=== PATIENT | male | born 1955 | race Two or more races ===

== ENCOUNTER 2017-08-07 15:58 | Emergency (ER) | payer MEDICAID ==
[2017-08-07 16:49] LABS: ADD MAN DIFF? NO
[2017-08-07 16:50] LABS: BASO # 0.1 x10^3/uL (0.0-0.2); BASO % 1 % (0-3); EOS # 0.6 x10^3/uL (0.0-0.7); EOS % 8 % (0-3); HEMATOCRIT 41.2 % (39.0-53.0); HEMOGLOBIN 14.3 g/dL (13.0-17.5); LYMPH # 2.6 x10^3/uL (1.0-4.8); LYMPH % 34 % (24-48); MEAN CORPUSCULAR HEMOGLOBIN 31 pg (25-35); MEAN CORPUSCULAR HGB CONC 35 g/dL (31-37); MEAN CORPUSCULAR VOLUME 90 fL (79-100); MONO # 0.8 x10^3/uL (0.0-1.1); MONO % 10 % (0-9); NEUT # 3.6 x10^3uL (1.8-7.7); NEUT % 47 % (31-73); PLATELET COUNT 264 x10^3/uL (140-400); RED BLOOD COUNT 4.56 x10^6/uL (4.30-5.70); RED CELL DISTRIBUTION WIDTH 13.4 % (11.5-14.5); WHITE BLOOD COUNT 7.8 x10^3/uL (4.0-11.0)
[2017-08-07 16:59] LABS: PROTHROMBIN TIME PATIENT 12.3 SEC (11.7-14.0)
[2017-08-07 17:02] LABS: ANION GAP 8 (6-14); BLOOD UREA NITROGEN 20 mg/dL (8-26); BUN/CREATININE RATIO 17 (6-20); CALCIUM 9.6 mg/dL (8.5-10.1); CARBON DIOXIDE 27 mmol/L (21-32); CHLORIDE 103 mmol/L (98-107); CREATININE 1.2 mg/dL (0.7-1.3); GLUCOSE 127 mg/dL (70-99); POTASSIUM 3.7 mmol/L (3.5-5.1); SODIUM 138 mmol/L (136-145)
[2017-08-07] MEDS: diphenhydrAMINE 50 MG/ML VIAL IVP (17:05)
[2017-08-07] MEDS: PROCHLORPERAZINE 10 MG/2 ML VIAL. IV (17:06)
[2017-08-07 17:07] LABS: ALBUMIN 3.6 g/dL (3.4-5.0); ALK PHOS 76 U/L (46-116); ALT (SGPT) 33 U/L (16-63); AST (SGOT) 24 U/L (15-37); MAGNESIUM 1.9 mg/dL (1.8-2.4); TOTAL BILIRUBIN 0.3 mg/dL (0.2-1.0); TOTAL PROTEIN 7.3 g/dL (6.4-8.2)
[2017-08-07 17:10] LABS: TROPONINI < 0.017 ng/mL (0.000-0.055)
[2017-08-07] MEDS: MECLIZINE HCL 12.5 MG TABLET. PO (17:16)
== END 2017-08-07 20:40 | disposition home or self-care (01) ==
LOC: ER 15:58
DX: R51 Headache (principal); R07.89 Other chest pain; R68.84 Jaw pain; K21.9 Gastro-esophageal reflux disease without esophagitis; I10 Essential (primary) hypertension; N40.0 Benign prostatic hyperplasia without lower urinary tract symptoms; F12.10 Cannabis abuse, uncomplicated
CPT/HCPCS: 36415; 70450; 71045; 80053; 83735; 84484; 85025; 85610; 93005; 93971; 96374; 96375; 99285-25; J0780; J1200; J8597

== ENCOUNTER 2017-10-20 10:28 | Emergency (ER) | payer MEDICAID ==
[2017-10-20 11:39] LABS: ADD MAN DIFF? NO
[2017-10-20 11:48] LABS: BASO # 0.1 x10^3/uL (0.0-0.2); BASO % 1 % (0-3); EOS # 0.2 x10^3/uL (0.0-0.7); EOS % 4 % (0-3); HEMATOCRIT 39.6 % (39.0-53.0); HEMOGLOBIN 13.8 g/dL (13.0-17.5); LYMPH # 1.2 x10^3/uL (1.0-4.8); LYMPH % 18 % (24-48); MEAN CORPUSCULAR HEMOGLOBIN 31 pg (25-35); MEAN CORPUSCULAR HGB CONC 35 g/dL (31-37); MEAN CORPUSCULAR VOLUME 90 fL (79-100); MONO # 0.7 x10^3/uL (0.0-1.1); MONO % 10 % (0-9); NEUT # 4.6 x10^3uL (1.8-7.7); NEUT % 68 % (31-73); PLATELET COUNT 235 x10^3/uL (140-400); RED BLOOD COUNT 4.39 x10^6/uL (4.30-5.70); RED CELL DISTRIBUTION WIDTH 13.5 % (11.5-14.5); WHITE BLOOD COUNT 6.8 x10^3/uL (4.0-11.0)
[2017-10-20 11:53] LABS: BILIRUBIN,URINE NEGATIVE (NEG); CLARITY,URINE CLEAR; COLOR,URINE YELLOW; GLUCOSE,URINE NEGATIVE (NEG); NITRITE,URINE NEGATIVE (NEG); PH,URINE 5.5; PROTEIN,URINE NEGATIVE (NEG-TRACE); UROBILINOGEN,URINE 0.2 mg/dL (0.2 mg/dL)
[2017-10-20 11:56] LABS: ANION GAP 8 (6-14); BLOOD UREA NITROGEN 22 mg/dL (8-26); BUN/CREATININE RATIO 17 (6-20); CARBON DIOXIDE 26 mmol/L (21-32); CHLORIDE 103 mmol/L (98-107); CREATININE 1.3 mg/dL (0.7-1.3); GFR 56.5; GLUCOSE 155 mg/dL (70-99); POTASSIUM 3.7 mmol/L (3.5-5.1); SODIUM 137 mmol/L (136-145)
[2017-10-20 12:03] LABS: ALBUMIN 3.6 g/dL (3.4-5.0); ALBUMIN/GLOBULIN RATIO 1.1 (1.0-1.7); ALK PHOS 87 U/L (46-116); ALT (SGPT) 28 U/L (16-63); AST (SGOT) 22 U/L (15-37); TOTAL BILIRUBIN 0.5 mg/dL (0.2-1.0); TOTAL PROTEIN 6.8 g/dL (6.4-8.2)
[2017-10-20 12:04] LABS: TROPONINI < 0.017 ng/mL (0.000-0.055)
[2017-10-20 12:10] LABS: CKMB INDEX 0.9 % (0-4); CKMB MASS 2.1 ng/mL (0.0-3.6); CREATINE KINASE 227 U/L (39-308)
[2017-10-20 12:15] LABS: RBC,URINE 0 /HPF (0-2); WBC,URINE 0 /HPF (0-4)
[2017-10-20 12:16] LABS: BACTERIA,URINE 0 /HPF (0-FEW)
[2017-10-20] MEDS ORDERED: KETOROLAC 30 MG/ML INJ. IV (12:45)
== END 2017-10-20 13:27 | disposition home or self-care (01) ==
LOC: ER 10:28
DX: S29.9XXA Unspecified injury of thorax, initial encounter (principal); K21.9 Gastro-esophageal reflux disease without esophagitis; I10 Essential (primary) hypertension; F12.10 Cannabis abuse, uncomplicated; Z98.890 Other specified postprocedural states; V00.131A Fall from skateboard, initial encounter; Y93.51 Activity, roller skating (inline) and skateboarding; Y99.8 Other external cause status; Y92.89 Other specified places as the place of occurrence of the external cause
CPT/HCPCS: 36415; 71250; 80053; 81001; 82553; 84484; 85025; 93005; 99285

== ENCOUNTER 2019-12-08 15:48 | Emergency (ER) | payer MEDICAID, MEDICARE ==
[~2019-12-08] VITALS: Ht 167.6 cm; Wt 99.0 kg
[~2019-12-08 15:48] MED LIST: HYDR-3164 PO
--- NOTE | 2019-12-08 17:20 | RAD ---
CHEST AP ONLY History: Nausea, vomiting, diarrhea, PUI Comparison: August 07, 2017 Findings: Single view of the chest is submitted. No significant infiltrate is identified by radiograph dependent pleural fluid. Cardiac silhouette is within normal limits given technique. Impression: 1. No convincing acute radiographic abnormality is identified. Electronically signed by: Jose Bob MD (12/08/2019 5:17 PM) [facility]
[2019-12-08 17:31] LABS: BASO % 1 % (0-3); EOS % 1 % (0-3); HEMATOCRIT 41.4 % (39.0-53.0); HEMOGLOBIN 14.7 g/dL (13.0-17.5); LYMPH % 20 % (24-48); MEAN CORPUSCULAR HEMOGLOBIN 32 pg (25-35); MEAN CORPUSCULAR HGB CONC 36 g/dL (31-37); MEAN CORPUSCULAR VOLUME 89 fL (79-100); MONO # 0.8 x10^3/uL (0.0-1.1); MONO % 16 % (0-9); NEUT % 62 % (31-73); PLATELET COUNT 193 x10^3/uL (140-400); RED BLOOD COUNT 4.63 x10^6/uL (4.30-5.70); RED CELL DISTRIBUTION WIDTH 13.9 % (11.5-14.5); WHITE BLOOD COUNT 4.8 x10^3/uL (4.0-11.0)
--- NOTE | 2019-12-08 17:48 | PHYS DOC ---
Past Medical History Past Medical History: GERD, Hypertension, Other Additional Past Medical Histor: BPH Past Surgical History: Other Additional Past Surgical Histo: Knee Surgery, Vasectomy,left shoulder Smoking Status: Never Smoker Alcohol Use: Occasionally Drug Use: Marijuana General Adult EDM: Chief Complaint: FEVER HPI: HPI: Patient is a 63 year old male who presents to the emergency department with complaints of a fever, dry cough, and generalized body aches for the last 2 to 3 days. Patient reports that he traveled here recently to visit his daughter from [place]. He reports that today his daughter was notified of a positive result on her COVID-19 swab that was done on 05 of December. He denies any shortness of breath, chest pain, wheezing, nausea, vomiting, diarrhea, abdominal pain, or rash. He currently rates his pain a 6 out of 10 on the pain scale and describes the pain as a generalized body aches. Patient reports that he has been taking Tylenol and ibuprofen at home for the body aches and that has helped to reduce his symptoms. He denies any radiation of his pain. Review of Systems: Review of Systems: Constitutional: See HPI Eyes: Denies change in visual acuity. [] HENT: Denies nasal congestion or sore throat. [] Respiratory: Denies shortness of breath; see HPI [] Cardiovascular: Denies chest pain or edema. [] GI: Denies abdominal pain, nausea, vomiting, or diarrhea. [] Musculoskeletal: See HPI Integument: Denies rash. [] Neurologic: Denies headache, focal weakness or sensory changes. [] Lymphatic: Denies swollen glands. [] Psychiatric: Denies depression or anxiety. [] Heart Score: Risk Factors: Risk Factors: DM, Current or recent (<one month) smoker, HTN, HLP, family history of CAD, obesity. Risk Scores: Score 0 - 3: 2.5% MACE over next 6 weeks - Discharge Home Score 4 - 6: 20.3% MACE over next 6 weeks - Admit for Clinical Observation Score 7 - 10: 72.7% MACE over next 6 weeks - Early Invasive Strategies Allergies: Allergies: Allergies Coded Allergies Type Severity Reaction Last Updated Verified No Known Drug Allergies 08/07/17 No Physical Exam: PE: Constitutional: Well developed, well nourished, no acute distress, non-toxic appearance, obese. [] HENT: Normocephalic, atraumatic, bilateral external ears normal, nose normal. [] Eyes: PERRLA, EOMI, conjunctiva normal, no discharge. [] Neck: Normal range of motion, no stridor. [] Cardiovascular:Heart rate regular rhythm Lungs & Thorax: Respirations even and unlabored, no retractions, no respiratory distress Skin: Warm, dry, no erythema, no rash. [] Extremities: No cyanosis, ROM intact, no edema. [] Neurologic: Alert and oriented X 3, no focal deficits noted. [] Psychologic: Affect normal, judgement normal, mood normal. [] Current Patient Data: Labs: Laboratory Tests Test 12/08/19 17:17 White Blood Count 4.8 x10^3/uL (4.0-11.0) Red Blood Count 4.63 x10^6/uL (4.30-5.70) Hemoglobin 14.7 g/dL (13.0-17.5) Hematocrit 41.4 % (39.0-53.0) Mean Corpuscular Volume 89 fL (79-100) Mean Corpuscular Hemoglobin 32 pg (25-35) Mean Corpuscular Hemoglobin Concent 36 g/dL (31-37) Red Cell Distribution Width 13.9 % (11.5-14.5) Platelet Count 193 x10^3/uL (140-400) Neutrophils (%) (Auto) 62 % (31-73) Lymphocytes (%) (Auto) 20 % (24-48) L Monocytes (%) (Auto) 16 % (0-9) H Eosinophils (%) (Auto) 1 % (0-3) Basophils (%) (Auto) 1 % (0-3) Neutrophils # (Auto) 3.0 x10^3/uL (1.8-7.7) Lymphocytes # (Auto) 1.0 x10^3/uL (1.0-4.8) Monocytes # (Auto) 0.8 x10^3/uL (0.0-1.1) Eosinophils # (Auto) 0.0 x10^3/uL (0.0-0.7) Basophils # (Auto) 0.0 x10^3/uL (0.0-0.2) D-Dimer ([place]) 0.36 ug/mlFEU (0.00-0.50) Laboratory Tests 12/08/19 17:17 Vital Signs: Vital Signs Date Time Temp Pulse Resp B/P (MAP) Pulse Ox O2 Delivery O2 Flow Rate FiO2 12/08/19 17:21 82 125/90 (102) 98 Room Air 12/08/19 16:45 99.3 17 99.3 EKG: EKG: [] Radiology/Procedures: Radiology/Procedures: PROCEDURE: CHEST AP ONLY CHEST AP ONLY History: Nausea, vomiting, diarrhea, PUI Comparison: August 07, 2017 Findings: Single view of the chest is submitted. No significant infiltrate is identified by radiograph dependent pleural fluid. Cardiac silhouette is within normal limits given technique. Impression: 1. No convincing acute radiographic abnormality is identified.[] Course & Med Decision Making: Course & Med Decision Making Pertinent Labs and Imaging studies reviewed. (See chart for details) 63-year-old male presents to the emergency department with complaints of fever and concerns of COVID-19 Work-up included labs and chest x-ray CBC is unremarkable; d-dimer is 0.36; patient's creatinine is 1.7, AST 63, ALT 74, C-reactive protein 14.4, ferritin 712; UA is unremarkable. COVID test is pending. Chest x-ray is unremarkable. I encouraged the patient to quarantine himself, increase his fluid intake, continue taking Tylenol or ibuprofen as needed for pain, and provided him with COVID-19 discharge instructions. Prescription written for a Zithromax Dosepak I encouraged the patient to return to the emergency department if his breathing becomes labored or his symptoms worsen. Patient verbalized an understanding of home care, medications, follow-up, and return to ED instructions and was in agreement with the plan of care. COVID-19 CRITERIA: The patient was evaluated during the global COVID-19 pandemic, and that diagnosis was suspected/considered upon their initial presentation. Their evaluation, treatment and testing was consistent with current guidelines for patients who present with complaints or symptoms that may be related to COVID-19. [] Dragon Disclaimer: Dragon Disclaimer: This electronic medical record was generated, in whole or in part, using a voice recognition dictation system. Departure Departure Impression: Primary Impression: Person under investigation for COVID-19 Disposition: HOME, SELF-CARE Condition: STABLE Referrals: NO PCP (PCP) Additional Instructions: You have been tested for or diagnosed with COVID-19. It is an infection caused by a new type of coronavirus. COVID-19 will cause cold-like or mild flu symptoms in most. It can cause more severe symptoms like problems breathing in some. There is no treatment for COVID-19. The body will clear the infection over time. Self-care will help to ease discomfort. Steps to Take: Self-Care Rest as needed. Healthy habits may help you feel better. Steps include: Choose healthy foods including fruits and vegetables. Drink water throughout the day. Get plenty of sleep each night. If you smoke, try to quit. It may ease breathing. Avoid alcohol. Keep Others Healthy The virus can spread to others. Droplets are released every time you sneeze or cough. The droplets can get into the mouth, nose, or eyes of people near you and lead to infection. To lower the chances of spreading COVID-19 to others: Stay at home until your doctor has said it is safe to leave. If you tested positive this will mean staying isolated until both of the following are true: At least 7 days have passed since the start of illness. You are free of fever for at least 72 hours without the use of medicine. During this time: - Avoid public areas, events, or transportation. Do not return to work or school until your doctor has said it is safe to do so. - Call ahead if you need to go to a medical center. Let them know you may have COVID-19. It will help them guide you where to go. They may also ask you to wear a facemask when you come to the office. - If you call for emergency medical services, let them know you may have COVID- 19. While at home: - Try to avoid close contact with others. Stay about 6 feet away. - If possible, spend most of your time in a separate room from others. - Use a face mask if you will be in close contact with others such as sharing a room or vehicle. - Have someone wipe down common surfaces in the home. Use household salvage diver every day on areas like doorknobs, counters, or sinks. - Cough or sneeze into a tissue. Throw the tissue away right after use. If a tissue is not available, cough or sneeze into your elbow. - Wash your hands often. Wash them after sneezing or coughing. Use soap and water and wash for at least 20 seconds. Alcohol based hand cleaner signs can be used if soap and water is not available. - Do not prepare food for others. Avoid sharing personal items like forks, spoons, or toothbrushes. - Avoid close contact with pets while you are sick. There is no evidence of the virus passing to pets. This is a safety step until more is known about this virus. Isolation can be frustrating. Social interaction can help. Keep in touch with friends and family through phone and tech options. You can still interact with others in your home, just keep a safe distance of about 6 feet. Follow-up: Your doctors office will check in with you to see if there are any changes in your health. You may be asked to keep track of symptoms to share with them. They will also let you know when you are clear to be in public again. Problems to Look Out For: Contact your doctor if your recovery is not going as you expect. Get emergency care if you have problems such as: - Trouble breathing - Nonstop chest pain or pressure - Changes in awareness, confusion, or problems waking - Lips or face have bluish color - Worsening of symptoms If you think you have an emergency, call for emergency medical services right away. As taken from [facility] Azithromycin (ZITHROMAX PACKET) 1 Gm Packet 1 TAB PO UD for 5 Days, #1 PACKET 0 Refills Prov: HUMBERTO SEYMOUR APRN 12/08/19 Justicifation of Admission Dx: Justifications for Admission: Justification of Admission Dx: N/A COVID-19 Assessment: COVID-19 Patient Risks: Age 65 or older: No Sign of co-morbidity: No Exp to person + for COVID: Yes Exp to PUI: Yes Travel from affected area: No Lower respiratory symptoms: No Fever: Yes Other: No PPE Use: Full PPE with N95 mask or PAPR: Yes (N 95 and gown and gloves) HUMBERTO SEYMOUR APRN Dec 08, 2019 17:48
[2019-12-08 17:54] LABS: CALCIUM 9.3 mg/dL (8.5-10.1); CREATININE 1.7 mg/dL (0.7-1.3); GFR 41.2; POTASSIUM 3.6 mmol/L (3.5-5.1)
[2019-12-08 18:12] LABS: ALBUMIN 3.7 g/dL (3.4-5.0); ALBUMIN/GLOBULIN RATIO 0.9 (1.0-1.7); C-REACTIVE PROTEIN 14.4 mg/L (0-3.3); TOTAL BILIRUBIN 0.3 mg/dL (0.2-1.0); TOTAL PROTEIN 7.6 g/dL (6.4-8.2)
[2019-12-08 19:17] LABS: BILIRUBIN,URINE NEGATIVE (NEG); CLARITY,URINE CLEAR; COLOR,URINE YELLOW; NITRITE,URINE NEGATIVE (NEG); PH,URINE 5.5 (<5.0-8.0); PROTEIN,URINE NEGATIVE (NEG-TRACE); UROBILINOGEN,URINE 0.2 mg/dL (0.2 mg/dL)
[2019-12-08 19:23] LABS: HYALINE CASTS, URINE OCCASIONAL /HPF
[2019-12-08 19:24] LABS: BACTERIA,URINE 0 /HPF (0-FEW); RBC,URINE OCC /HPF (0-2); WBC,URINE OCC /HPF (0-4)
[2019-12-08] MEDS ORDERED: AZIT1PAC PO (20:05)
[2019-12-08 21:07] VITALS: BP 150/81
--- NOTE | 2019-12-10 19:20 | NUR ---
PT CALLED REQUESTING COVID 19 RESULTS. RESULTS WERE POSITIVE. PT INSTRUCTED TO HOME QUARANTINE. PT STATES THAT HIS WHOLE FAMILY HAS TESTED POSITIVE AND THEY ARE IN TOWN FROM [place] VISITING FAMILY. PT VERBALIZED UNDERSTANDING THAT HE SHOULD NOT TRAVEL UNTIL AFTER CLEARED BY THE HEALTH DEPT.
== END 2019-12-08 21:15 | disposition home or self-care (01) ==
LOC: ER 15:48
DX: U07.1 COVID-19 (principal); R50.9 Fever, unspecified; R05 Cough; M79.10 Myalgia, unspecified site; K21.9 Gastro-esophageal reflux disease without esophagitis; I10 Essential (primary) hypertension
CPT/HCPCS: 36415; 71045; 80053; 81001; 82550; 82728; 83690; 83735; 85025; 85379; 86140; 99285; C9803; U0003

== ENCOUNTER 2019-12-13 12:46 | Inpatient (IN) | payer MEDICARE ==
[~2019-12-13] VITALS: Ht 167.6 cm; Wt 98.1 kg
[~2019-12-13 12:46] MED LIST changes: +AZIT1PAC PO
--- NOTE | 2019-12-13 14:22 | RAD ---
CHEST AP ONLY History: Reason: soa, cough, positive for COVID-19 / Spl. Instructions: / History: Comparison: December 08, 2019 Findings: Ill-defined patchy bilateral opacities. No pleural effusion. No pneumothorax. Normal heart size. Chronic left midclavicular fracture. Impression: 1. Ill-defined patchy bilateral opacities, can be seen with viral pneumonia. Electronically signed by: Compa Peres DO (12/13/2019 2:18 PM) [id number]
[2019-12-13] MEDS ORDERED: AZITHRMYCN 500MG IVPB FOR OMNI 250 ML IV ONE (14:45)
[2019-12-13] MEDS ORDERED: IBUPROFEN 400 MG TABLET. PO ONE (15:00)
[2019-12-13] MEDS ORDERED: methylPREDNISolone SOD SUCC PF 125 MG/2 ML VIAL. IV ONE (15:00)
[2019-12-13 15:50] LABS: BASO % 1 % (0-3); EOS % 0 % (0-3); HEMATOCRIT 41.1 % (39.0-53.0); HEMOGLOBIN 14.8 g/dL (13.0-17.5); LYMPH # 0.8 x10^3/uL (1.0-4.8); LYMPH % 18 % (24-48); MEAN CORPUSCULAR HEMOGLOBIN 32 pg (25-35); MEAN CORPUSCULAR HGB CONC 36 g/dL (31-37); MEAN CORPUSCULAR VOLUME 88 fL (79-100); MONO # 0.4 x10^3/uL (0.0-1.1); MONO % 10 % (0-9); NEUT # 3.2 x10^3/uL (1.8-7.7); NEUT % 71 % (31-73); PLATELET COUNT 189 x10^3/uL (140-400); RED BLOOD COUNT 4.68 x10^6/uL (4.30-5.70); WHITE BLOOD COUNT 4.4 x10^3/uL (4.0-11.0)
[2019-12-13 15:58] LABS: PROTHROMBIN TIME PATIENT 12.7 SEC (11.7-14.0)
[2019-12-13] MEDS ORDERED: IV NORMAL SALINE 1000ML BAG 1,000 ML IV ONE (16:00)
[2019-12-13 16:05] LABS: CALCIUM 8.2 mg/dL (8.5-10.1); CREATININE 2.7 mg/dL (0.7-1.3); GFR 24.1; POTASSIUM 3.4 mmol/L (3.5-5.1)
[2019-12-13 16:18] LABS: ALBUMIN 3.2 g/dL (3.4-5.0); ALBUMIN/GLOBULIN RATIO 0.8 (1.0-1.7); TOTAL BILIRUBIN 0.3 mg/dL (0.2-1.0); TOTAL PROTEIN 7.4 g/dL (6.4-8.2)
[2019-12-13] MEDS ORDERED: cefTRIAXone IV Push 1 GM VIAL. IVP ONE (17:00)
--- NOTE | 2019-12-13 17:17 | PHYS DOC ---
Past Medical History Past Medical History: Hypertension Additional Past Medical Histor: BPH Past Surgical History: No Surgical History Additional Past Surgical Histo: Knee Surgery, Vasectomy,left shoulder Smoking Status: Never Smoker Alcohol Use: None Drug Use: Marijuana General Adult EDM: Chief Complaint: COUGH HPI: HPI: Patient is a 64 year old male who presented to ER today for evaluation of chest pain cough, fever and chill, trouble breathing. Patient was diagnosed with COVID-19 on December 08, 2019. Patient was instructed to stay home quarantine, patient came back here today because of persistent fever, cough and chest pain, not feeling better. Review of Systems: Review of Systems: Constitutional: Positive for fever or chills. [] Eyes: Denies change in visual acuity. [] HENT: Denies nasal congestion or sore throat. [] Respiratory: Positive cough or shortness of breath. [] Cardiovascular: Positive for chest pain denies edema. [] GI: Denies abdominal pain, nausea, vomiting, bloody stools or diarrhea. [] : Denies dysuria. [] Musculoskeletal: Denies back pain or joint pain. [] Integument: Denies rash. [] Neurologic: Denies headache, focal weakness or sensory changes. [] Endocrine: Denies polyuria or polydipsia. [] Lymphatic: Denies swollen glands. [] Psychiatric: Denies depression or anxiety. [] Heart Score: Risk Factors: Risk Factors: DM, Current or recent (<one month) smoker, HTN, HLP, family history of CAD, obesity. Risk Scores: Score 0 - 3: 2.5% MACE over next 6 weeks - Discharge Home Score 4 - 6: 20.3% MACE over next 6 weeks - Admit for Clinical Observation Score 7 - 10: 72.7% MACE over next 6 weeks - Early Invasive Strategies Current Medications: Current Medications Medications (Trade) Dose Ordered Sig/Pam Start Time Stop Time Status Last Admin Dose Admin Azithromycin 250 ml @ 250 mls/hr 1X ONCE 12/13/19 14:45 12/13/19 15:44 DC 12/13/19 14:45 250 MLS/HR Ceftriaxone Sodium (Rocephin) 1 gm 1X ONCE 12/13/19 17:00 12/13/19 17:02 DC Ibuprofen (Motrin) 800 mg 1X ONCE 12/13/19 15:00 12/13/19 15:01 DC 12/13/19 15:23 800 MG Methylprednisolone Sodium Succinate (SOLU-Medrol 125MG VIAL) 125 mg 1X ONCE 12/13/19 15:00 12/13/19 15:01 DC 12/13/19 15:23 125 MG Sodium Chloride 1,000 ml @ 1,000 mls/hr 1X ONCE 12/13/19 16:00 12/13/19 16:59 DC 12/13/19 15:58 1,000 MLS/HR Allergies: Allergies: Allergies Coded Allergies Type Severity Reaction Last Updated Verified No Known Drug Allergies 08/07/17 No Physical Exam: PE: Constitutional: Well developed, well nourished, no acute distress, non-toxic appearance. [] HENT: Normocephalic, atraumatic, bilateral external ears normal, oropharynx moist, no oral exudates, nose normal. [] Eyes: PERRLA, EOMI, conjunctiva normal, no discharge. [] Neck: Normal range of motion, no tenderness, supple, no stridor. [] Cardiovascular:Heart rate regular rhythm, no murmur [] Lungs & Thorax: Bilateral breath sounds clear to auscultation [] Abdomen: Bowel sounds normal, soft, no tenderness, no masses, no pulsatile masses. [] Skin: Warm, dry, no erythema, no rash. [] Back: No tenderness, no CVA tenderness. [] Extremities: No tenderness, no cyanosis, no clubbing, ROM intact, no edema. [] Neurologic: Alert and oriented X 3, normal motor function, normal sensory function, no focal deficits noted. [] Psychologic: Affect normal, judgement normal, mood normal. [] Current Patient Data: Labs: Laboratory Tests Test 12/13/19 15:27 White Blood Count 4.4 x10^3/uL (4.0-11.0) Red Blood Count 4.68 x10^6/uL (4.30-5.70) Hemoglobin 14.8 g/dL (13.0-17.5) Hematocrit 41.1 % (39.0-53.0) Mean Corpuscular Volume 88 fL (79-100) Mean Corpuscular Hemoglobin 32 pg (25-35) Mean Corpuscular Hemoglobin Concent 36 g/dL (31-37) Red Cell Distribution Width 14.0 % (11.5-14.5) Platelet Count 189 x10^3/uL (140-400) Neutrophils (%) (Auto) 71 % (31-73) Lymphocytes (%) (Auto) 18 % (24-48) L Monocytes (%) (Auto) 10 % (0-9) H Eosinophils (%) (Auto) 0 % (0-3) Basophils (%) (Auto) 1 % (0-3) Neutrophils # (Auto) 3.2 x10^3/uL (1.8-7.7) Lymphocytes # (Auto) 0.8 x10^3/uL (1.0-4.8) L Monocytes # (Auto) 0.4 x10^3/uL (0.0-1.1) Eosinophils # (Auto) 0.0 x10^3/uL (0.0-0.7) Basophils # (Auto) 0.0 x10^3/uL (0.0-0.2) Prothrombin Time 12.7 SEC (11.7-14.0) Prothrombin Time INR 1.0 (0.8-1.1) Activated Partial Thromboplast Time 33 SEC (24-38) Sodium Level 134 mmol/L (136-145) L Potassium Level 3.4 mmol/L (3.5-5.1) L Chloride Level 97 mmol/L (98-107) L Carbon Dioxide Level 24 mmol/L (21-32) Anion Gap 13 (6-14) Blood Urea Nitrogen 39 mg/dL (8-26) H Creatinine 2.7 mg/dL (0.7-1.3) H Estimated GFR (Cockcroft-Gault) 24.1 BUN/Creatinine Ratio 14 (6-20) Glucose Level 139 mg/dL (70-99) H Lactic Acid Level 1.3 mmol/L (0.4-2.0) Calcium Level 8.2 mg/dL (8.5-10.1) L Total Bilirubin 0.3 mg/dL (0.2-1.0) Aspartate Amino Transferase (AST) 43 U/L (15-37) H Alanine Aminotransferase (ALT) 41 U/L (16-63) Alkaline Phosphatase 45 U/L (46-116) L Troponin I Quantitative < 0.017 ng/mL (0.000-0.055) QS-Ryv-[id number]-Type Natriuretic Peptide 40 pg/mL (0-124) Total Protein 7.4 g/dL (6.4-8.2) Albumin 3.2 g/dL (3.4-5.0) L Albumin/Globulin Ratio 0.8 (1.0-1.7) L Laboratory Tests 12/13/19 15:27 Laboratory Tests 12/13/19 15:27 Vital Signs: Vital Signs Date Time Temp Pulse Resp B/P (MAP) Pulse Ox O2 Delivery O2 Flow Rate FiO2 12/13/19 16:01 102.5 102.5 12/13/19 14:30 82 20 104/67 (79 94 Room Air EKG: EKG: EKG was done at 1414, heart rate of 83 bpm, sinus rhythm, no ST segment elevation. Radiology/Procedures: Radiology/Procedures: [][facility] [address] [place] [address] IMAGING REPORT Signed PATIENT: SHAWN SCHMIDT ACCOUNT: [id number] : 1955 LOCATION: ER AGE: 64 SEX: M EXAM STATUS: REG ER ORD. PHYSICIAN: CHE HASSAN DO REASON: soa, cough, positive for COVID-19 PROCEDURE: CHEST AP ONLY CHEST AP ONLY History: Reason: soa, cough, positive for COVID-19 / Spl. Instructions: / History: Comparison: December 08, 2019 Findings: Ill-defined patchy bilateral opacities. No pleural effusion. No pneumothorax. Normal heart size. Chronic left midclavicular fracture. Impression: 1. Ill-defined patchy bilateral opacities, can be seen with viral pneumonia. Electronically signed by: Compa Peres DO (12/13/2019 2:18 PM) [id number] DICTATED and SIGNED BY: COMPA PERES DO DATE: 12/13/191417 Course & Med Decision Making: Course & Med Decision Making Pertinent Labs and Imaging studies reviewed. (See chart for details) Patient is a 64-year-old male who was diagnosed with COVID- 19 infection on December 08, 2019. Patient come back today for evaluation because worsening cough, chest pain fever and chill. Patient was found to have pneumonia on chest x-ray at this time, his creatinine level elevated from 1.7 TO 2.7. Discussed with Dr. Licona who agreed to admit patient. COVID-19 CRITERIA: The patient was evaluated during the global COVID-19 pandemic, and that diagnosis was suspected/considered upon their initial presentation. Their evaluation, treatment and testing was consistent with current guidelines for patients who present with complaints or symptoms that may be related to COVID-19. Dragon Disclaimer: Dragon Disclaimer: This electronic medical record was generated, in whole or in part, using a voice recognition dictation system. Departure Departure Impression: Primary Impression: Pneumonia due to 2019 novel coronavirus Additional Impression: Acute renal failure Disposition: ADMITTED INPATIENT Admitting Physician: ADRIS (DR. LICONA) Condition: STABLE Referrals: NO PCP (PCP) Justicifation of Admission Dx: Justifications for Admission: Justification of Admission Dx: Yes Acute Renal Failure: 3-Fold Rise in Serum Crea CHE HASSAN DO Dec 13, 2019 17:17
[2019-12-13] MEDS ORDERED: IV NORMAL SALINE 1000ML BAG 1,000 ML IV SCH (17:26)
[2019-12-13] MEDS ORDERED: ONDANSETRON PF 4 MG/2 ML VIAL. IV PRN (17:30)
--- NOTE | 2019-12-13 18:42 | PDOC1 ---
History and Physical Date of Admission Date of Admission DATE: 12/13/19 TIME: 18:25 Identification/Chief Complaint Chief Complaint chest pain sob Problems: (1) Pneumonia due to 2019 novel coronavirus (2) Person under investigation for COVID-19 Source Source: Caregiver, Chart review History of Present Illness History of Present Illness 64 year old male otherwise healthy from [facility] drove to [place] to visit her daughter for her Bday. states came to [place] on November 30. reported cough and fever and was diagnosed with covid 19 on december 07 in ED. instructed to go home and self quarantine but did not improve. sent home with azithromycin. experienced more chest pain and SOB for past 24 hr along with fever at home so came to ED for further evaluation. her daughter is dx with covid. patient's also has symptoms of covid-19 but has not been tested yet. cxr in ED shows Ill-defined patchy bilateral opacities. patient started on IV abx, given steroids. no 02 required in ED Past Medical History Past Medical History reviewed and denies Past Surgical History Past Surgical History denies Family History Family History reviewed and denies Social History Smoke: No ALCOHOL: none Drugs: None Current Problem List Problem List Problems Medical Problems: (1) Acute renal failure Status: Acute (2) Pneumonia due to 2019 novel coronavirus Status: Acute Current Medications Current Medications Current Medications Azithromycin 250 ml @ 250 mls/hr 1X ONCE IV Last administered on 12/13/19at 14:45; Start 12/13/19 at 14:45; Stop 12/13/19 at 15:44; Status DC Methylprednisolone Sodium Succinate (SOLU-Medrol 125MG VIAL) 125 mg 1X ONCE IV Last administered on 12/13/19at 15:23; Start 12/13/19 at 15:00; Stop 12/13/19 at 15:01; Status DC Ibuprofen (Motrin) 800 mg 1X ONCE PO Last administered on 12/13/19at 15:23; Start 12/13/19 at 15:00; Stop 12/13/19 at 15:01; Status DC Sodium Chloride 1,000 ml @ 1,000 mls/hr 1X ONCE IV Last administered on 12/13/19at 15:58; Start 12/13/19 at 16:00; Stop 12/13/19 at 16:59; Status DC Ceftriaxone Sodium (Rocephin) 1 gm 1X ONCE IVP Last administered on 12/13/19at 17:43; Start 12/13/19 at 17:00; Stop 12/13/19 at 17:02; Status DC Ondansetron HCl (Zofran) 4 mg PRN Q8HRS PRN IV NAUSEA/VOMITING; Start 12/13/19 at 17:30; Stop 12/14/19 at 17:29 Sodium Chloride 1,000 ml @ 100 mls/hr Q10H IV ; Start 12/13/19 at 17:26; Stop 12/14/19 at 17:25 Active Scripts Active Zithromax Packet (Azithromycin) 1 Gm Packet 1 Tab PO UD 5 Days [place] 5-325 Tablet (Acetaminophen/Hydrocodone Bitart) 1 Each Tablet 1 Tab PO BID 3 Days Allergies Allergies: Coded Allergies: No Known Drug Allergies (Unverified , 08/07/17) ROS Review of System CONSTITUTIONAL: No fever or chills EYES: No recent changes SKIN: No rash or itching CARDIOVASCULAR: No chest pain, syncope, palpitations, or edema RESPIRATORY: No SOB or cough GASTROINTESTINAL: No nausea, vomiting or abdominal pain NEUROLOGICAL: No headaches or weakness ENDOCRINE: No cold or heat intolerance GENITOURINARY: No urgency or frequency of urination MUSCULOSKELETAL: No back pain or joint pain LYMPHATICS: No enlarged lymph nodes PSYCHIATRIC: No anxiety or depression Physical Exam Physical Exam GENERAL: No apparent distress. Alert and oriented. HEENT: Head normocephalic, atraumatic. NECK: Supple LUNGS: Clear to auscultation. HEART: RRR, S1, S2 present, pulses intact ABDOMEN: Soft, positive bowel sounds. EXTREMITIES: No cyanosis or edema. NEUROLOGIC: Normal speech, normal tone PSYCHIATRIC: Normal affect, normal mood. SKIN: No ulceration. Vitals Vitals Vital Signs Date Time Temp Pulse Resp B/P (MAP) Pulse Ox O2 Delivery O2 Flow Rate FiO2 12/13/19 18:07 98.4 98.4 12/13/19 14:30 82 20 104/67 (79) 94 Room Air Labs Labs Laboratory Tests Test 12/13/19 15:27 White Blood Count 4.4 x10^3/uL (4.0-11.0) Red Blood Count 4.68 x10^6/uL (4.30-5.70) Hemoglobin 14.8 g/dL (13.0-17.5) Hematocrit 41.1 % (39.0-53.0) Mean Corpuscular Volume 88 fL (79-100) Mean Corpuscular Hemoglobin 32 pg (25-35) Mean Corpuscular Hemoglobin Concent 36 g/dL (31-37) Red Cell Distribution Width 14.0 % (11.5-14.5) Platelet Count 189 x10^3/uL (140-400) Neutrophils (%) (Auto) 71 % (31-73) Lymphocytes (%) (Auto) 18 % (24-48) Monocytes (%) (Auto) 10 % (0-9) Eosinophils (%) (Auto) 0 % (0-3) Basophils (%) (Auto) 1 % (0-3) Neutrophils # (Auto) 3.2 x10^3/uL (1.8-7.7) Lymphocytes # (Auto) 0.8 x10^3/uL (1.0-4.8) Monocytes # (Auto) 0.4 x10^3/uL (0.0-1.1) Eosinophils # (Auto) 0.0 x10^3/uL (0.0-0.7) Basophils # (Auto) 0.0 x10^3/uL (0.0-0.2) Prothrombin Time 12.7 SEC (11.7-14.0) Prothromb Time International Ratio 1.0 (0.8-1.1) Activated Partial Thromboplast Time 33 SEC (24-38) Sodium Level 134 mmol/L (136-145) Potassium Level 3.4 mmol/L (3.5-5.1) Chloride Level 97 mmol/L (98-107) Carbon Dioxide Level 24 mmol/L (21-32) Anion Gap 13 (6-14) Blood Urea Nitrogen 39 mg/dL (8-26) Creatinine 2.7 mg/dL (0.7-1.3) Estimated GFR (Cockcroft-Gault) 24.1 BUN/Creatinine Ratio 14 (6-20) Glucose Level 139 mg/dL (70-99) Lactic Acid Level 1.3 mmol/L (0.4-2.0) Calcium Level 8.2 mg/dL (8.5-10.1) Total Bilirubin 0.3 mg/dL (0.2-1.0) Aspartate Amino Transf (AST/SGOT) 43 U/L (15-37) Alanine Aminotransferase (ALT/SGPT) 41 U/L (16-63) Alkaline Phosphatase 45 U/L (46-116) Troponin I Quantitative < 0.017 ng/mL (0.000-0.055) XX-Bnm-H-Type Natriuretic Peptide 40 pg/mL (0-124) Total Protein 7.4 g/dL (6.4-8.2) Albumin 3.2 g/dL (3.4-5.0) Albumin/Globulin Ratio 0.8 (1.0-1.7) Laboratory Tests Test 12/13/19 15:27 White Blood Count 4.4 x10^3/uL (4.0-11.0) Red Blood Count 4.68 x10^6/uL (4.30-5.70) Hemoglobin 14.8 g/dL (13.0-17.5) Hematocrit 41.1 % (39.0-53.0) Mean Corpuscular Volume 88 fL (79-100) Mean Corpuscular Hemoglobin 32 pg (25-35) Mean Corpuscular Hemoglobin Concent 36 g/dL (31-37) Red Cell Distribution Width 14.0 % (11.5-14.5) Platelet Count 189 x10^3/uL (140-400) Neutrophils (%) (Auto) 71 % (31-73) Lymphocytes (%) (Auto) 18 % (24-48) Monocytes (%) (Auto) 10 % (0-9) Eosinophils (%) (Auto) 0 % (0-3) Basophils (%) (Auto) 1 % (0-3) Neutrophils # (Auto) 3.2 x10^3/uL (1.8-7.7) Lymphocytes # (Auto) 0.8 x10^3/uL (1.0-4.8) Monocytes # (Auto) 0.4 x10^3/uL (0.0-1.1) Eosinophils # (Auto) 0.0 x10^3/uL (0.0-0.7) Basophils # (Auto) 0.0 x10^3/uL (0.0-0.2) Prothrombin Time 12.7 SEC (11.7-14.0) Prothromb Time International Ratio 1.0 (0.8-1.1) Activated Partial Thromboplast Time 33 SEC (24-38) Sodium Level 134 mmol/L (136-145) Potassium Level 3.4 mmol/L (3.5-5.1) Chloride Level 97 mmol/L (98-107) Carbon Dioxide Level 24 mmol/L (21-32) Anion Gap 13 (6-14) Blood Urea Nitrogen 39 mg/dL (8-26) Creatinine 2.7 mg/dL (0.7-1.3) Estimated GFR (Cockcroft-Gault) 24.1 BUN/Creatinine Ratio 14 (6-20) Glucose Level 139 mg/dL (70-99) Lactic Acid Level 1.3 mmol/L (0.4-2.0) Calcium Level 8.2 mg/dL (8.5-10.1) Total Bilirubin 0.3 mg/dL (0.2-1.0) Aspartate Amino Transf (AST/SGOT) 43 U/L (15-37) Alanine Aminotransferase (ALT/SGPT) 41 U/L (16-63) Alkaline Phosphatase 45 U/L (46-116) Troponin I Quantitative < 0.017 ng/mL (0.000-0.055) JR-Yuz-O-Type Natriuretic Peptide 40 pg/mL (0-124) Total Protein 7.4 g/dL (6.4-8.2) Albumin 3.2 g/dL (3.4-5.0) Albumin/Globulin Ratio 0.8 (1.0-1.7) VTE Prophylaxis Ordered VTE Prophylaxis Devices: Yes VTE Pharmacological Prophylaxi: Yes Assessment/Plan Assessment/Plan ASSESSMENT Chest pain and SOB secondary to [id number], + 7/9 Acute Renal Failure secondary to Vasomotor Nephropathy PLAN - Admit to covid unit - not currently requiring supplemental - monitor on tele, pulse ox - Rocephin and azithro for now. defer to ID regarding continuation of abx - IVF given bump in creatine - no indication for remdesevir or steroids at the moment given no 02 requirement - check ESR, CRP, ferratin, d dimer - ID consulted for remdesevir/plasma considerations - prn tylenol for fever pain - dvt ppx: lovenox - full code - labs in AM - Justicifation of Admission Dx: Justifications for Admission: Justification of Admission Dx: Yes Acute Renal Failure: 3-Fold Rise in Serum Crea JOSE KYLE MD Dec 13, 2019 18:42
[2019-12-13 19:00] VITALS: BP_SYST 107; BP_SYST 122; BP_DIAS 68; BP_DIAS 69
[2019-12-13] MEDS ORDERED: POTASSIUM CHLORIDE 20 MEQ TABLET.ER. PO ONE (19:00)
[2019-12-13] MEDS: ENOXAPARIN 40 MG/0.4 ML SYRINGE. SQ SCH (20:30)
[2019-12-13] MEDS: IV NORMAL SALINE 1000ML BAG 1,000 ML IV SCH (20:30)
[2019-12-13 21:02] LABS: C-REACTIVE PROTEIN 27.2 mg/L (0-3.3)
[2019-12-13 23:00] VITALS: BP 108/70
[2019-12-14 03:00] VITALS: BP 107/54
--- NOTE | 2019-12-14 05:02 | EKG ---
[facility] [address] [place] [address] Test Date: 2019-12-13 Test Time: 14:14:47 Pat Name: SHAWN SCHMIDT Department: Room: Gender: M [employer] Set Up Operator: : 1955 Requested By: CHE HASSAN Order Number: [id number] Reading MD: Measurements Intervals [place] Rate: 83 P: 28 MT: 134 QRS: -3 QRSD: 102 T: 43 QT: 356 QTc: 424 Interpretive Statements SINUS RHYTHM LEFTWARD AXIS QRS(T) CONTOUR ABNORMALITY CONSIDER ANTEROLATERAL MYOCARDIAL DAMAGE POSSIBLY ABNORMAL ECG RI6.01 No previous ECG available for comparison
[2019-12-14 06:46] LABS: BASO % 0 % (0-3); EOS % 0 % (0-3); HEMATOCRIT 39.3 % (39.0-53.0); HEMOGLOBIN 13.7 g/dL (13.0-17.5); LYMPH # 0.5 x10^3/uL (1.0-4.8); LYMPH % 33 % (24-48); MEAN CORPUSCULAR HEMOGLOBIN 31 pg (25-35); MEAN CORPUSCULAR HGB CONC 35 g/dL (31-37); MEAN CORPUSCULAR VOLUME 88 fL (79-100); MONO # 0.1 x10^3/uL (0.0-1.1); MONO % 9 % (0-9); NEUT % 58 % (31-73); PLATELET COUNT 212 x10^3/uL (140-400); RED BLOOD COUNT 4.45 x10^6/uL (4.30-5.70); RED CELL DISTRIBUTION WIDTH 13.6 % (11.5-14.5)
[2019-12-14 07:05] LABS: ALBUMIN 2.7 g/dL (3.4-5.0); CALCIUM 7.9 mg/dL (8.5-10.1); DIRECT BILIRUBIN 0.1 mg/dL (0.0-0.2); POTASSIUM 4.1 mmol/L (3.5-5.1); TOTAL BILIRUBIN 0.2 mg/dL (0.2-1.0); TOTAL PROTEIN 6.7 g/dL (6.4-8.2)
[2019-12-14 07:13] LABS: WHITE BLOOD COUNT 1.7 x10^3/uL (4.0-11.0)
[2019-12-14 07:15] VITALS: BP 106/64
--- NOTE | 2019-12-14 07:57 | NUR ---
RN NOTE lab called with critical wbc 1.7 dr mcclendon notified continue to monitor order entered for CBC in am 12/15/2019
[2019-12-14] MEDS: IV NORMAL SALINE 1000ML BAG 1,000 ML IV SCH ×2 (08:48→21:50)
[2019-12-14 11:15] VITALS: BP 108/58
--- NOTE | 2019-12-14 12:17 | NUR ---
SW following. Reviewed chart and spoke with RN and CM. Spoke with pt who stated he and his are in [place] visiting their daughter. Pt stated he and his live in [place]. Pt on room air and IV Rocephin. SW to continue following.
--- NOTE | 2019-12-14 12:31 | PDOC ---
Infectious Disease Note Vital Sign Vital Signs Vital Signs Date Time Temp Pulse Resp B/P (MAP) Pulse Ox O2 Delivery O2 Flow Rate FiO2 12/14/19 11:15 99.7 85 18 108/58 (75) 93 Room Air 99.7 Labs Lab Laboratory Tests Test 12/13/19 15:27 12/13/19 19:48 12/14/19 05:55 White Blood Count 4.4 x10^3/uL (4.0-11.0) 1.7 x10^3/uL (4.0-11.0) Red Blood Count 4.68 x10^6/uL (4.30-5.70) 4.45 x10^6/uL (4.30-5.70) Hemoglobin 14.8 g/dL (13.0-17.5) 13.7 g/dL (13.0-17.5) Hematocrit 41.1 % (39.0-53.0) 39.3 % (39.0-53.0) Mean Corpuscular Volume 88 fL (79-100) 88 fL (79-100) Mean Corpuscular Hemoglobin 32 pg (25-35) 31 pg (25-35) Mean Corpuscular Hemoglobin Concent 36 g/dL (31-37) 35 g/dL (31-37) Red Cell Distribution Width 14.0 % (11.5-14.5) 13.6 % (11.5-14.5) Platelet Count 189 x10^3/uL (140-400) 212 x10^3/uL (140-400) Neutrophils (%) (Auto) 71 % (31-73) 58 % (31-73) Lymphocytes (%) (Auto) 18 % (24-48) 33 % (24-48) Monocytes (%) (Auto) 10 % (0-9) 9 % (0-9) Eosinophils (%) (Auto) 0 % (0-3) 0 % (0-3) Basophils (%) (Auto) 1 % (0-3) 0 % (0-3) Neutrophils # (Auto) 3.2 x10^3/uL (1.8-7.7) 1.0 x10^3/uL (1.8-7.7) Lymphocytes # (Auto) 0.8 x10^3/uL (1.0-4.8) 0.5 x10^3/uL (1.0-4.8) Monocytes # (Auto) 0.4 x10^3/uL (0.0-1.1) 0.1 x10^3/uL (0.0-1.1) Eosinophils # (Auto) 0.0 x10^3/uL (0.0-0.7) 0.0 x10^3/uL (0.0-0.7) Basophils # (Auto) 0.0 x10^3/uL (0.0-0.2) 0.0 x10^3/uL (0.0-0.2) Prothrombin Time 12.7 SEC (11.7-14.0) Prothromb Time International Ratio 1.0 (0.8-1.1) Activated Partial Thromboplast Time 33 SEC (24-38) Sodium Level 134 mmol/L (136-145) 138 mmol/L (136-145) Potassium Level 3.4 mmol/L (3.5-5.1) 4.1 mmol/L (3.5-5.1) Chloride Level 97 mmol/L (98-107) 105 mmol/L (98-107) Carbon Dioxide Level 24 mmol/L (21-32) 24 mmol/L (21-32) Anion Gap 13 (6-14) 9 (6-14) Blood Urea Nitrogen 39 mg/dL (8-26) 39 mg/dL (8-26) Creatinine 2.7 mg/dL (0.7-1.3) 2.0 mg/dL (0.7-1.3) Estimated GFR (Cockcroft-Gault) 24.1 34.0 BUN/Creatinine Ratio 14 (6-20) Glucose Level 139 mg/dL (70-99) 205 mg/dL (70-99) Lactic Acid Level 1.3 mmol/L (0.4-2.0) Calcium Level 8.2 mg/dL (8.5-10.1) 7.9 mg/dL (8.5-10.1) Total Bilirubin 0.3 mg/dL (0.2-1.0) 0.2 mg/dL (0.2-1.0) Aspartate Amino Transf (AST/SGOT) 43 U/L (15-37) 32 U/L (15-37) Alanine Aminotransferase (ALT/SGPT) 41 U/L (16-63) 39 U/L (16-63) Alkaline Phosphatase 45 U/L (46-116) 40 U/L (46-116) Troponin I Quantitative < 0.017 ng/mL (0.000-0.055) 0.018 ng/mL (0.000-0.055) YM-Zji-Q-Type Natriuretic Peptide 40 pg/mL (0-124) Total Protein 7.4 g/dL (6.4-8.2) 6.7 g/dL (6.4-8.2) Albumin 3.2 g/dL (3.4-5.0) 2.7 g/dL (3.4-5.0) Albumin/Globulin Ratio 0.8 (1.0-1.7) D-Dimer ([place]) 0.33 ug/mlFEU (0.00-0.50) Ferritin 1822 ng/mL (26-388) C-Reactive Protein, Quantitative 27.2 mg/L (0-3.3) Direct Bilirubin 0.1 mg/dL (0.0-0.2) Objective Assessment pt seen, consult dictated Plan Plan of Care / COLT HOLLEY MD Dec 14, 2019 12:31
--- NOTE | 2019-12-14 13:02 | CONS ---
DATE OF CONSULTATION: 12/14/2019 REQUESTING PHYSICIAN: Dr. Licona. REASON FOR CONSULTATION: COVID-19 positive. HISTORY OF PRESENT ILLNESS: This is a 64-year-old gentleman who was recently drove from [place] to [place] to visit the daughter for her birthday. Also, there is another daughter came with, both were diagnosed on 12/07 in the ED with COVID-19. The patient had cough, shortness of breath and then persistent fever, hence he came back and was admitted now. The patient also has bilateral pulmonary infiltrates. The patient denies any nausea, vomiting, or diarrhea. Denies any chest pain. Does have slight shortness of breath. The patient denies any other complaints. The patient is still on room air. PAST MEDICAL HISTORY: The patient essentially has no past medical history. SOCIAL HISTORY: Negative for smoking, alcohol, or drug use. ALLERGIES: No known drug allergies. CURRENT MEDICATIONS: Reviewed. The patient is on ceftriaxone and azithromycin. REVIEW OF SYSTEMS: As per HPI, all other systems reviewed and are negative. PHYSICAL EXAMINATION: GENERAL: Alert, oriented gentleman, not in distress. VITAL SIGNS: Stable with a T-max 102.5. HEENT: NAD. NECK: Supple, no JVP, no lymphadenopathy. LUNGS: Clear. HEART: S1, S2 regular. ABDOMEN: Benign. EXTREMITIES: No edema, cyanosis. SKIN: Unremarkable. NEUROLOGIC: The patient is alert, awake and appropriate. No focal neurologic deficit. LABORATORY DATA: White count is 1.7, down from 4.4. BUN and creatinine is 39 and 2. CRP is 27. Ferritin is 1822. IMAGING STUDIES: Chest x-ray, bilateral ill-defined pulmonary infiltrates. IMPRESSION: 1. COVID-19 positive. 2. Pulmonary infiltrates from COVID-19. 3. Leukopenia, rule out secondary infection. 4. Renal insufficiency, which is unclear whether it is new or old. RECOMMENDATIONS: Hydration, supportive care. Continue Rocephin. If oxygenation worsens, then consider starting convalescent plasma and/or also remdesivir. Thank you very much, Dr. Licona, for giving me the opportunity to participate in this patient's care. We will continue to follow. COLT HOLLEY MD DR: LIANG/jagdish JOB#: [id number] / [id number]
[2019-12-14] MEDS: ACETAMINOPHEN 325 MG TABLET. PO PRN ×2 (13:32→21:49)
[2019-12-14] MEDS: LACTOBACILLUS RHAMNOSUS GG 1 CAPSULE. PO SCH ×2 (13:32→21:49)
[2019-12-14 15:00] VITALS: BP 119/68
[2019-12-14] MEDS ORDERED: AZITHROMYCIN 500 MG in IV NORMAL SALINE 250ML 250 ML IV SCH (15:00)
[2019-12-14 15:09] LABS: BASO % 0 % (0-3); EOS % 0 % (0-3); HEMATOCRIT 39.7 % (39.0-53.0); HEMOGLOBIN 13.7 g/dL (13.0-17.5); LYMPH # 0.9 x10^3/uL (1.0-4.8); LYMPH % 14 % (24-48); MEAN CORPUSCULAR HEMOGLOBIN 31 pg (25-35); MEAN CORPUSCULAR HGB CONC 34 g/dL (31-37); MEAN CORPUSCULAR VOLUME 89 fL (79-100); MONO # 0.6 x10^3/uL (0.0-1.1); MONO % 10 % (0-9); NEUT # 4.8 x10^3/uL (1.8-7.7); NEUT % 77 % (31-73); PLATELET COUNT 238 x10^3/uL (140-400); RED BLOOD COUNT 4.45 x10^6/uL (4.30-5.70); RED CELL DISTRIBUTION WIDTH 13.6 % (11.5-14.5); WHITE BLOOD COUNT 6.3 x10^3/uL (4.0-11.0)
[2019-12-14] MEDS ORDERED: OMEP20CA16 PO (15:56)
[2019-12-14] MEDS ORDERED: FLUT16SP NS (15:56)
[2019-12-14] MEDS ORDERED: LORA10TA3 PO (15:56)
[2019-12-14] MEDS ORDERED: METO50TA6 PO (15:56)
[2019-12-14] MEDS ORDERED: LOSA1TAB19 PO (15:56)
[2019-12-14] MEDS ORDERED: ALBU2.5V8 IH (15:56)
[2019-12-14] MEDS ORDERED: ASPI-886 PO (15:56)
[2019-12-14] MEDS ORDERED: PSEU30TA24 PO (15:56)
[2019-12-14] MEDS ORDERED: TAMS0.4C97 PO (15:56)
[2019-12-14] MEDS ORDERED: ATOR10TA60 PO (15:56)
[2019-12-14] MEDS ORDERED: HYDR25SU RC (15:56)
--- NOTE | 2019-12-14 16:15 | PDOC ---
[employer] PROGRESS NOTE Chief Complaint Chief Complaint Chest pain and SOB secondary to [id number], + 12/07 Acute Renal Failure secondary to Vasomotor Nephropathy - monitor on tele, pulse ox - Rocephin for now per ID -Continue IV fluids for elevated creatinine levels - no indication for remdesevir or steroids at the moment given no 02 requirement - ID consulted for remdesevir/plasma considerations - prn tylenol for fever pain - dvt ppx: lovenox - full code - labs in AM History of Present Illness History of Present Illness 64 year old male otherwise healthy from [place] drove to [place] to visit her daughter for her Bday. states came to [place] on November 30. reported cough and fever and was diagnosed with covid 19 on december 07 in ED. instructed to go home and self quarantine but did not improve. sent home with azithromycin. experienced more chest pain and SOB for past 24 hr along with fever at home so came to ED for further evaluation. her daughter is dx with covid. patient's also has symptoms of covid-19 but has not been tested yet. 12/14/2019 Patient seen and examined bedside today. No acute events overnight. Patient has been remained afebrile and does not require O2 requirements. Saturating 93% on room air Vitals/I&O Vitals/I&O: Vital Signs Date Time Temp Pulse Resp B/P (MAP) Pulse Ox O2 Delivery O2 Flow Rate FiO2 12/14/19 11:15 99.7 85 18 108/58 (75) 93 Room Air 99.7 Physical Exam Physical Exam: GENERAL: Patient is alert and awake. NAD HEENT: Moist mucous membranes. No scleral icterus or obvious cervical lymphadenopathy CV: RRR. No murmurs rubs or gallops. Unable to appreciate S3 or S4 PULM: Bilaterally clear to auscultation. Chest expanding equally bilaterally without use of accessory muscles. ABD: Soft and nondistended on visualization and palpation. Normoactive bowel sounds heard. EXTREMITIES: No pedal edema seen. No warmth or tenderness upon touch. NEURO: Full ROM in all extremities. normal strength on upper extremities. Labs Labs: Laboratory Tests Test 12/13/19 19:48 12/14/19 05:55 12/14/19 14:50 D-Dimer ([place]) 0.33 ug/mlFEU (0.00-0.50) Ferritin 1822 ng/mL (26-388) Troponin I Quantitative 0.018 ng/mL (0.000-0.055) C-Reactive Protein, Quantitative 27.2 mg/L (0-3.3) White Blood Count 1.7 x10^3/uL (4.0-11.0) 6.3 x10^3/uL (4.0-11.0) Red Blood Count 4.45 x10^6/uL (4.30-5.70) 4.45 x10^6/uL (4.30-5.70) Hemoglobin 13.7 g/dL (13.0-17.5) 13.7 g/dL (13.0-17.5) Hematocrit 39.3 % (39.0-53.0) 39.7 % (39.0-53.0) Mean Corpuscular Volume 88 fL (79-100) 89 fL (79-100) Mean Corpuscular Hemoglobin 31 pg (25-35) 31 pg (25-35) Mean Corpuscular Hemoglobin Concent 35 g/dL (31-37) 34 g/dL (31-37) Red Cell Distribution Width 13.6 % (11.5-14.5) 13.6 % (11.5-14.5) Platelet Count 212 x10^3/uL (140-400) 238 x10^3/uL (140-400) Neutrophils (%) (Auto) 58 % (31-73) 77 % (31-73) Lymphocytes (%) (Auto) 33 % (24-48) 14 % (24-48) Monocytes (%) (Auto) 9 % (0-9) 10 % (0-9) Eosinophils (%) (Auto) 0 % (0-3) 0 % (0-3) Basophils (%) (Auto) 0 % (0-3) 0 % (0-3) Neutrophils # (Auto) 1.0 x10^3/uL (1.8-7.7) 4.8 x10^3/uL (1.8-7.7) Lymphocytes # (Auto) 0.5 x10^3/uL (1.0-4.8) 0.9 x10^3/uL (1.0-4.8) Monocytes # (Auto) 0.1 x10^3/uL (0.0-1.1) 0.6 x10^3/uL (0.0-1.1) Eosinophils # (Auto) 0.0 x10^3/uL (0.0-0.7) 0.0 x10^3/uL (0.0-0.7) Basophils # (Auto) 0.0 x10^3/uL (0.0-0.2) 0.0 x10^3/uL (0.0-0.2) Sodium Level 138 mmol/L (136-145) Potassium Level 4.1 mmol/L (3.5-5.1) Chloride Level 105 mmol/L (98-107) Carbon Dioxide Level 24 mmol/L (21-32) Anion Gap 9 (6-14) Blood Urea Nitrogen 39 mg/dL (8-26) Creatinine 2.0 mg/dL (0.7-1.3) Estimated GFR (Cockcroft-Gault) 34.0 Glucose Level 205 mg/dL (70-99) Calcium Level 7.9 mg/dL (8.5-10.1) Total Bilirubin 0.2 mg/dL (0.2-1.0) Direct Bilirubin 0.1 mg/dL (0.0-0.2) Aspartate Amino Transf (AST/SGOT) 32 U/L (15-37) Alanine Aminotransferase (ALT/SGPT) 39 U/L (16-63) Alkaline Phosphatase 40 U/L (46-116) Total Protein 6.7 g/dL (6.4-8.2) Albumin 2.7 g/dL (3.4-5.0) Review of Systems Review of Systems: CONSTITUIONAL: Denies weight loss, fever and chills. HEENT: Denies changes in vision and hearing. RESPIRATORY: Denies SOB and cough. CV: Denies palpitations and CP. GI: Denies abdominal pain, nausea, vomiting and diarrhea. : Denies dysuria and urinary frequency. MSK: Denies myalgia and joint pain. SKIN: Denies rash and pruritus. NEUROLOGICAL: Denies headache and syncope. PSYCHIATRIC: Denies recent changes in mood. Denies anxiety and depression. Assessment and Plan Assessmemt and Plan Problems Medical Problems: (1) Acute renal failure Status: Acute (2) Pneumonia due to 2019 novel coronavirus Status: Acute Comment Review of Relevant I have reviewed the following items ashwin (where applicable) has been applied. Medications: Current Medications Medications (Trade) Dose Ordered Sig/Pam Route PRN Reason Start Time Stop Time Status Last Admin Dose Admin Ceftriaxone Sodium (Rocephin) 1 gm 1X ONCE IVP 12/13/19 17:00 12/13/19 17:02 DC 12/13/19 17:43 Enoxaparin Sodium (Lovenox 40mg Syringe) 40 mg Q24H SQ 12/13/19 21:00 12/13/19 20:30 Sodium Chloride 1,000 ml @ 75 mls/hr [id number] IV 12/13/19 18:30 12/14/19 08:48 Acetaminophen (Tylenol) 650 mg PRN Q6HRS PRN PO fever 12/13/19 18:45 12/14/19 13:32 Potassium Chloride (Klor-Con) 40 meq 1X ONCE PO 12/13/19 19:00 12/13/19 19:01 DC 12/13/19 20:30 Lactobacillus Rhamnosus (Culturelle) 1 cap BID PO 12/14/19 13:00 12/14/19 13:32 Justicifation of Admission Dx: Justifications for Admission: Justification of Admission Dx: Yes Acute Renal Failure: 3-Fold Rise in Serum Crea TRAVON NOGUEIRA MD Dec 14, 2019 16:15
[2019-12-14] MEDS: cefTRIAXone IV Push 1 GM VIAL. IVP SCH (16:46)
[2019-12-14 19:00] VITALS: BP 108/69
[2019-12-14] MEDS: ENOXAPARIN 40 MG/0.4 ML SYRINGE. SQ SCH (21:49)
[2019-12-14 23:00] VITALS: BP 91/57
[2019-12-15] MEDS: BENZONATATE 100 MG CAPSULE. PO PRN ×2 (02:19→10:50)
[2019-12-15 03:00] VITALS: BP 105/55
[2019-12-15] MEDS: ACETAMINOPHEN 325 MG TABLET. PO PRN ×4 (04:10→22:30)
[2019-12-15 07:11] LABS: BASO % 0 % (0-3); EOS % 0 % (0-3); HEMATOCRIT 37.7 % (39.0-53.0); LYMPH % 15 % (24-48); MEAN CORPUSCULAR HEMOGLOBIN 31 pg (25-35); MEAN CORPUSCULAR HGB CONC 35 g/dL (31-37); MEAN CORPUSCULAR VOLUME 89 fL (79-100); MONO # 0.3 x10^3/uL (0.0-1.1); MONO % 5 % (0-9); NEUT # 5.1 x10^3/uL (1.8-7.7); NEUT % 80 % (31-73); PLATELET COUNT 252 x10^3/uL (140-400); RED BLOOD COUNT 4.26 x10^6/uL (4.30-5.70); RED CELL DISTRIBUTION WIDTH 13.8 % (11.5-14.5); WHITE BLOOD COUNT 6.5 x10^3/uL (4.0-11.0)
[2019-12-15 07:15] VITALS: BP 113/60
[2019-12-15] MEDS: LACTOBACILLUS RHAMNOSUS GG 1 CAPSULE. PO SCH ×2 (08:55→22:31)
[2019-12-15] MEDS: IV NORMAL SALINE 1000ML BAG 1,000 ML IV SCH (08:56)
[2019-12-15 11:15] VITALS: BP 108/58
--- NOTE | 2019-12-15 11:31 | PDOC ---
Infectious Disease Note Subjective Subjective Patient is feeling good denies any shortness of breath still on room air although had a fever ROS ROS No nausea vomiting diarrhea chest pain Vital Sign Vital Signs Vital Signs Date Time Temp Pulse Resp B/P (MAP) Pulse Ox O2 Delivery O2 Flow Rate FiO2 12/15/19 08:45 Room Air 12/15/19 07:15 101.2 80 18 113/60 (77) 95 101.2 Physical Exam PHYSICAL EXAM GENERAL: Alert, oriented gentleman, not in distress. VITAL SIGNS: Stable with a T-max 102.5. HEENT: NAD. NECK: Supple, no JVP, no lymphadenopathy. LUNGS: Clear. HEART: S1, S2 regular. ABDOMEN: Benign. EXTREMITIES: No edema, cyanosis. SKIN: Unremarkable. NEUROLOGIC: The patient is alert, awake and appropriate. No focal neurologic deficit. Labs Lab Laboratory Tests Test 12/14/19 14:50 12/15/19 06:30 White Blood Count 6.3 x10^3/uL (4.0-11.0) 6.5 x10^3/uL (4.0-11.0) Red Blood Count 4.45 x10^6/uL (4.30-5.70) 4.26 x10^6/uL (4.30-5.70) Hemoglobin 13.7 g/dL (13.0-17.5) 13.0 g/dL (13.0-17.5) Hematocrit 39.7 % (39.0-53.0) 37.7 % (39.0-53.0) Mean Corpuscular Volume 89 fL (79-100) 89 fL (79-100) Mean Corpuscular Hemoglobin 31 pg (25-35) 31 pg (25-35) Mean Corpuscular Hemoglobin Concent 34 g/dL (31-37) 35 g/dL (31-37) Red Cell Distribution Width 13.6 % (11.5-14.5) 13.8 % (11.5-14.5) Platelet Count 238 x10^3/uL (140-400) 252 x10^3/uL (140-400) Neutrophils (%) (Auto) 77 % (31-73) 80 % (31-73) Lymphocytes (%) (Auto) 14 % (24-48) 15 % (24-48) Monocytes (%) (Auto) 10 % (0-9) 5 % (0-9) Eosinophils (%) (Auto) 0 % (0-3) 0 % (0-3) Basophils (%) (Auto) 0 % (0-3) 0 % (0-3) Neutrophils # (Auto) 4.8 x10^3/uL (1.8-7.7) 5.1 x10^3/uL (1.8-7.7) Lymphocytes # (Auto) 0.9 x10^3/uL (1.0-4.8) 1.0 x10^3/uL (1.0-4.8) Monocytes # (Auto) 0.6 x10^3/uL (0.0-1.1) 0.3 x10^3/uL (0.0-1.1) Eosinophils # (Auto) 0.0 x10^3/uL (0.0-0.7) 0.0 x10^3/uL (0.0-0.7) Basophils # (Auto) 0.0 x10^3/uL (0.0-0.2) 0.0 x10^3/uL (0.0-0.2) Micro Microbiology 12/13/19 Blood Culture - Preliminary, Resulted NO GROWTH AFTER 1 DAY Objective Assessment IMPRESSION: 1. COVID-19 positive. 2. Pulmonary infiltrates from COVID-19. 3. Leukopenia, rule out secondary infection. 4. Renal insufficiency, which is unclear whether it is new or old. Plan Plan of Care RECOMMENDATIONS: Hydration, supportive care. Continue Rocephin. If oxygenation worsens, then consider starting convalescent plasma and/or also remdesivir. COLT HOLLEY MD Dec 15, 2019 11:31
[2019-12-15 15:00] VITALS: BP 106/59
--- NOTE | 2019-12-15 16:24 | PDOC ---
[employer] PROGRESS NOTE Chief Complaint Chief Complaint Chest pain and SOB secondary to [id number], + 12/07 Acute Renal Failure secondary to Vasomotor Nephropathy Persistent fevers - monitor on tele, pulse ox - Rocephin for now per ID -We will consider convalescent Ig or Remdesivir if oxygenation worsens -Continue IV fluids for elevated creatinine levels - no indication for remdesevir or steroids at the moment given no 02 requirement - prn tylenol for fever pain - dvt ppx: lovenox - full code - labs in AM History of Present Illness History of Present Illness 64 year old male otherwise healthy from [place] drove to [place] to visit her daughter for her Bday. states came to [place] on November 30. reported cough and fever and was diagnosed with covid 19 on december 07 in ED. instructed to go home and self quarantine but did not improve. sent home with azithromycin. experienced more chest pain and SOB for past 24 hr along with fever at home so came to ED for further evaluation. her daughter is dx with covid. patient's also has symptoms of covid-19 but has not been tested yet. 12/15/2019 No acute events overnight. Patient continues to fever with T-max of 102.4. Patient is oxygenating well as well as 95% on room air. Patient states he feels fine with some cough that is bothering him. He is tolerating diet and ambulating without assistance. 12/14/2019 Patient seen and examined bedside today. No acute events overnight. Patient has been remained afebrile and does not require O2 requirements. Saturating 93% on room air Vitals/I&O Vitals/I&O: Vital Signs Date Time Temp Pulse Resp B/P (MAP) Pulse Ox O2 Delivery O2 Flow Rate FiO2 12/15/19 15:00 100.8 77 16 106/59 (75) 94 Room Air 100.8 I & O 12/14/19 12/14/19 12/15/19 15:00 23:00 07:00 Intake Total 120 ml 320 ml 900 ml Output Total 1 ml 1 ml Balance 120 ml 319 ml 899 ml Physical Exam Physical Exam: GENERAL: Alert, oriented gentleman, not in distress. VITAL SIGNS: Stable with a T-max 102.5. HEENT: NAD. NECK: Supple, no JVP, no lymphadenopathy. LUNGS: Clear. HEART: S1, S2 regular. ABDOMEN: Benign. EXTREMITIES: No edema, cyanosis. SKIN: Unremarkable. NEUROLOGIC: The patient is alert, awake and appropriate. No focal neurologic deficit. Labs Labs: Laboratory Tests Test 12/15/19 06:30 White Blood Count 6.5 x10^3/uL (4.0-11.0) Red Blood Count 4.26 x10^6/uL (4.30-5.70) Hemoglobin 13.0 g/dL (13.0-17.5) Hematocrit 37.7 % (39.0-53.0) Mean Corpuscular Volume 89 fL (79-100) Mean Corpuscular Hemoglobin 31 pg (25-35) Mean Corpuscular Hemoglobin Concent 35 g/dL (31-37) Red Cell Distribution Width 13.8 % (11.5-14.5) Platelet Count 252 x10^3/uL (140-400) Neutrophils (%) (Auto) 80 % (31-73) Lymphocytes (%) (Auto) 15 % (24-48) Monocytes (%) (Auto) 5 % (0-9) Eosinophils (%) (Auto) 0 % (0-3) Basophils (%) (Auto) 0 % (0-3) Neutrophils # (Auto) 5.1 x10^3/uL (1.8-7.7) Lymphocytes # (Auto) 1.0 x10^3/uL (1.0-4.8) Monocytes # (Auto) 0.3 x10^3/uL (0.0-1.1) Eosinophils # (Auto) 0.0 x10^3/uL (0.0-0.7) Basophils # (Auto) 0.0 x10^3/uL (0.0-0.2) Assessment and Plan Assessmemt and Plan Problems Medical Problems: (1) Acute renal failure Status: Acute (2) Pneumonia due to 2019 novel coronavirus Status: Acute Comment Review of Relevant I have reviewed the following items ashwin (where applicable) has been applied. Medications: Current Medications Medications (Trade) Dose Ordered Sig/Pam Route PRN Reason Start Time Stop Time Status Last Admin Dose Admin Ceftriaxone Sodium (Rocephin) 1 gm Q24H IVP 12/14/19 17:00 12/14/19 16:46 Benzonatate (Tessalon Perle) 100 mg PRN Q8HRS PRN PO COUGH 12/15/19 00:15 12/15/19 10:50 Justicifation of Admission Dx: Justifications for Admission: Justification of Admission Dx: Yes Acute Renal Failure: 3-Fold Rise in Serum Crea TRAVON NOGUEIRA MD Dec 15, 2019 16:24
[2019-12-15] MEDS: cefTRIAXone IV Push 1 GM VIAL. IVP SCH (17:10)
--- NOTE | 2019-12-15 17:10 | NUR ---
SW following. Reviewed chart and spoke with RN. Discharge plan remains home when stable. Pt on IV Rocephin. Pt has a fever. Pt is being considered for convalescent plasma and/or Remdesivi per COVID 19 positive. SW to continue following.
[2019-12-15 19:59] VITALS: BP 104/54
[2019-12-15] MEDS: ENOXAPARIN 40 MG/0.4 ML SYRINGE. SQ SCH (22:31)
[2019-12-15 23:17] VITALS: BP 123/59
[2019-12-16] VITALS (12 sets, daily range): BP systolic 100–136; BP diastolic 58–75
[2019-12-16] MEDS: IV NORMAL SALINE 1000ML BAG 1,000 ML IV SCH ×2 (02:55→13:10)
[2019-12-16] MEDS: ACETAMINOPHEN 325 MG TABLET. PO PRN ×3 (04:36→18:24)
[2019-12-16] MEDS: LACTOBACILLUS RHAMNOSUS GG 1 CAPSULE. PO SCH ×2 (09:12→21:28)
[2019-12-16] MEDS: ENOXAPARIN 40 MG/0.4 ML SYRINGE. SQ SCH ×2 (09:12→21:29)
--- NOTE | 2019-12-16 10:39 | PDOC ---
Infectious Disease Note Subjective Subjective Patient is feeling good denies any shortness of breath still on room air although had a fever ROS ROS No nausea vomiting diarrhea chest pain Vital Sign Vital Signs Vital Signs Date Time Temp Pulse Resp B/P (MAP) Pulse Ox O2 Delivery O2 Flow Rate FiO2 12/16/19 08:00 Room Air 12/16/19 07:00 100.9 85 17 118/58 (78) 96 100.9 Physical Exam PHYSICAL EXAM GENERAL: Alert, oriented gentleman, not in distress. VITAL SIGNS: Stable with a T-max 102.5. HEENT: NAD. NECK: Supple, no JVP, no lymphadenopathy. LUNGS: Clear. HEART: S1, S2 regular. ABDOMEN: Benign. EXTREMITIES: No edema, cyanosis. SKIN: Unremarkable. NEUROLOGIC: The patient is alert, awake and appropriate. No focal neurologic deficit. Labs Micro Microbiology 12/13/19 Blood Culture - Preliminary, Resulted NO GROWTH AFTER 1 DAY Objective Assessment IMPRESSION: 1. COVID-19 positive. 2. Pulmonary infiltrates from COVID-19. 3. Leukopenia, rule out secondary infection. 4. Renal insufficiency, which is unclear whether it is new or old. Plan Plan of Care RECOMMENDATIONS: Hydration, supportive care. Continue Rocephin. If oxygenation worsens, start coalescent plasma COLT HOLLEY MD Dec 16, 2019 10:39
--- NOTE | 2019-12-16 10:54 | DISCH ---
DISCHARGE INSTRUCTIONS Condition on Discharge Condition on Discharge: Stable Activity After Discharge Activity Instructions for Disc: No restrictions Exercise Instruction after Dis: Walk 30 min, 3 x per week Driving Instructions after Dis: Do not drive today Diet after Discharge Diet after Discharge: Cardiac Contacting the [facility] after DC Call your doctor for: If your condition worsens Follow-Up Follow up with: PCP within 1 week Treatment/Equipment after DC Comment: Social isolation for 14 days. Wear facemask TRAVON NOGUEIRA MD Dec 16, 2019 10:54
[2019-12-16] MEDS ORDERED: DOXYCYCLINE HYCLATE 100 MG TABLET PO SCH (11:00)
[2019-12-16] MEDS ORDERED: FAMOTIDINE 20 MG TABLET. PO PRN (11:30)
--- NOTE | 2019-12-16 12:09 | NUR ---
SW following. Reviewed chart and spoke with RN and CM. Pt will likely discharge over the weekend to self quarantine. Coordinated care with Dr. Muniz and added pt to the weekend discharge list. Pt will discharge to his dtr's home on room air and oral medications. No further SW needs at this time.
[2019-12-16] MEDS ORDERED: AMOXICILLIN 250 MG CAPSULE. PO SCH (14:00)
--- NOTE | 2019-12-16 14:06 | PDOC ---
[facility] [facility] PROGRESS NOTE Chief Complaint Chief Complaint Chest pain and SOB secondary to [id number], + 12/07 Acute Renal Failure secondary to Vasomotor Nephropathy Persistent fevers - monitor on tele, pulse ox - Rocephin for now per ID - Convalescent IG due to persistent fevers -Continue IV fluids for elevated creatinine levels - no indication for remdesevir or steroids at the moment given no 02 requirement - prn tylenol for fever pain - dvt ppx: lovenox - full code - labs in AM History of Present Illness History of Present Illness 64 year old male otherwise healthy from [place] drove to [place] to visit her daughter for her Bday. states came to [place] on November 30. reported cough and fever and was diagnosed with covid 19 on december 07 in ED. instructed to go home and self quarantine but did not improve. sent home with azithromycin. experienced more chest pain and SOB for past 24 hr along with fever at home so came to ED for further evaluation. her daughter is dx with covid. patient's also has symptoms of covid-19 but has not been tested yet. 12/16/2019 No acute events overnight. Patient persistently fevers in the 102. Patient has been oxygenating 96% on room air. His cough has improved and he appears comfortable at this time. 12/15/2019 No acute events overnight. Patient continues to fever with T-max of 102.4. Patient is oxygenating well as well as 95% on room air. Patient states he feels fine with some cough that is bothering him. He is tolerating diet and ambulating without assistance. 12/14/2019 Patient seen and examined bedside today. No acute events overnight. Patient has been remained afebrile and does not require O2 requirements. Saturating 93% on room air Vitals/I&O Vitals/I&O: Vital Signs Date Time Temp Pulse Resp B/P (MAP) Pulse Ox O2 Delivery O2 Flow Rate FiO2 12/16/19 11:00 102.5 74 18 128/71 (90) 92 Room Air 102.5 I & O 12/15/19 12/15/19 12/16/19 15:00 23:00 07:00 Intake Total 100 ml 200 ml Balance 100 ml 200 ml Physical Exam Physical Exam: GENERAL: Alert, oriented gentleman, not in distress. VITAL SIGNS: Stable with a T-max 102.5. HEENT: NAD. NECK: Supple, no JVP, no lymphadenopathy. LUNGS: Clear. HEART: S1, S2 regular. ABDOMEN: Benign. EXTREMITIES: No edema, cyanosis. SKIN: Unremarkable. NEUROLOGIC: The patient is alert, awake and appropriate. No focal neurologic deficit. Review of Systems Review of Systems: CONSTITUIONAL: Denies weight loss, fever and chills. HEENT: Denies changes in vision and hearing. RESPIRATORY: Denies SOB and cough. CV: Denies palpitations and CP. GI: Denies abdominal pain, nausea, vomiting and diarrhea. : Denies dysuria and urinary frequency. MSK: Denies myalgia and joint pain. SKIN: Denies rash and pruritus. NEUROLOGICAL: Denies headache and syncope. PSYCHIATRIC: Denies recent changes in mood. Denies anxiety and depression. Assessment and Plan Assessmemt and Plan Problems Medical Problems: (1) Acute renal failure Status: Acute (2) Pneumonia due to 2019 novel coronavirus Status: Acute Comment Review of Relevant I have reviewed the following items ashwin (where applicable) has been applied. Medications: Current Medications Medications (Trade) Dose Ordered Sig/Pam Route PRN Reason Start Time Stop Time Status Last Admin Dose Admin Enoxaparin Sodium (Lovenox 40mg Syringe) 40 mg BID SQ 12/15/19 21:00 12/16/19 09:12 Famotidine (Pepcid) 20 mg PRN DAILY PRN PO HEARTBURN. 12/16/19 11:30 12/16/19 11:35 Justicifation of Admission Dx: Justifications for Admission: Justification of Admission Dx: Yes Acute Renal Failure: 3-Fold Rise in Serum Crea TRAVON NOGUEIRA MD Dec 16, 2019 14:06
[2019-12-16] MEDS: cefTRIAXone IV Push 1 GM VIAL. IVP SCH (17:17)
--- NOTE | 2019-12-16 18:44 | NUR ---
Plasma: Spoke with Dr. Soco Tenorio re: 102 temp and administering plasma. Per Dr. Tenorio, okay to administer plasma. Continue to administer acetaminophen to reduce temperature.
[2019-12-17] MEDS: ACETAMINOPHEN 325 MG TABLET. PO PRN ×4 (01:39→19:28)
[2019-12-17] MEDS: IV NORMAL SALINE 1000ML BAG 1,000 ML IV SCH ×3 (02:30→22:26)
[2019-12-17 03:00] VITALS: BP 109/60
[2019-12-17 07:00] VITALS: BP 133/71
--- NOTE | 2019-12-17 08:00 | NUR ---
Pt desated into the low 80s, unable to maintain on NC, pt palced on non rebreather at this time. Temp 101.6, tylenol given. Pt noted to be chilling and has complaints of neck pain. Dr. Muniz notified and orders received for chest xray at this time. 1000: Pt 100% on non rebreather, able to put back onto 5L/NC with O2 sat 90-94%. Pt states that he feels better
[2019-12-17] MEDS: LACTOBACILLUS RHAMNOSUS GG 1 CAPSULE. PO SCH ×2 (08:14→20:35)
[2019-12-17] MEDS: ENOXAPARIN 40 MG/0.4 ML SYRINGE. SQ SCH ×2 (08:14→20:36)
--- NOTE | 2019-12-17 09:21 | RAD ---
CHEST AP ONLY 12/17/2019 12:00 AM INDICATION: Increased oxygen requirement. Covid positive COMPARISON: 12/13/2019 TECHNIQUE: Portable frontal view of the chest is provided. FINDINGS: The cardiomediastinal silhouette is within normal limits. Patchy interstitial airspace disease noted in the right upper and lower lobes. Findings appear marginally worse compared prior examination. There are no significant pleural effusions. There is no pulmonary vascular congestion. No pneumothorax. No suspicious osseous abnormality. IMPRESSION: Worsening interstitial airspace disease noted in the right upper and lower lobes. Electronically signed by: Brittany Roberts MD (12/17/2019 9:18 AM) [facility]
[2019-12-17 10:07] LABS: BASO % 0 % (0-3); EOS % 0 % (0-3); HEMATOCRIT 37.1 % (39.0-53.0); HEMOGLOBIN 13.2 g/dL (13.0-17.5); LYMPH # 0.7 x10^3/uL (1.0-4.8); LYMPH % 8 % (24-48); MEAN CORPUSCULAR HEMOGLOBIN 32 pg (25-35); MEAN CORPUSCULAR HGB CONC 36 g/dL (31-37); MEAN CORPUSCULAR VOLUME 88 fL (79-100); MONO # 0.4 x10^3/uL (0.0-1.1); MONO % 4 % (0-9); NEUT # 7.9 x10^3/uL (1.8-7.7); NEUT % 88 % (31-73); PLATELET COUNT 295 x10^3/uL (140-400); RED BLOOD COUNT 4.21 x10^6/uL (4.30-5.70); RED CELL DISTRIBUTION WIDTH 14.3 % (11.5-14.5)
[2019-12-17 10:48] LABS: % BANDS 3 % (0-9); % LYMPHS 8 % (24-48); % MONOS 4 % (0-10); % SEGS 85 % (35-66); PLT ESTIMATE ADEQUATE (ADEQUATE)
[2019-12-17 10:51] LABS: CALCIUM 8.4 mg/dL (8.5-10.1); CREATININE 1.5 mg/dL (0.7-1.3); GFR 47.4; POTASSIUM 3.1 mmol/L (3.5-5.1)
[2019-12-17 11:20] VITALS: BP 110/57
--- NOTE | 2019-12-17 11:53 | PDOC ---
Infectious Disease Note Subjective Subjective Ongoing fever, Tmax 102.5 SOA some better. + cough Supplemental O2 4L + diarrhea, 4 stools so far today. Diminished appetite Denies N/V/cramps ROS ROS as mentioned above Vital Sign Vital Signs Vital Signs Date Time Temp Pulse Resp B/P (MAP) Pulse Ox O2 Delivery O2 Flow Rate FiO2 12/17/19 11:20 100.2 77 18 110/57 (74) 93 Room Air 100.2 12/17/19 08:10 4.0 Physical Exam PHYSICAL EXAM GENERAL: Waling back to bed, alert in NAD HEENT: oral cavity clear NECK: Supple LUNGS: nonlabored HEART: S1, S2 regular. ABDOMEN: Soft and nontender EXTREMITIES: No edema, cyanosis. SKIN: warm to touch NEUROLOGIC: Alert, answers questions appropriately Labs Lab Laboratory Tests Test 12/17/19 09:40 White Blood Count 9.0 x10^3/uL (4.0-11.0) Red Blood Count 4.21 x10^6/uL (4.30-5.70) Hemoglobin 13.2 g/dL (13.0-17.5) Hematocrit 37.1 % (39.0-53.0) Mean Corpuscular Volume 88 fL (79-100) Mean Corpuscular Hemoglobin 32 pg (25-35) Mean Corpuscular Hemoglobin Concent 36 g/dL (31-37) Red Cell Distribution Width 14.3 % (11.5-14.5) Platelet Count 295 x10^3/uL (140-400) Neutrophils (%) (Auto) 88 % (31-73) Lymphocytes (%) (Auto) 8 % (24-48) Monocytes (%) (Auto) 4 % (0-9) Eosinophils (%) (Auto) 0 % (0-3) Basophils (%) (Auto) 0 % (0-3) Neutrophils # (Auto) 7.9 x10^3/uL (1.8-7.7) Lymphocytes # (Auto) 0.7 x10^3/uL (1.0-4.8) Monocytes # (Auto) 0.4 x10^3/uL (0.0-1.1) Eosinophils # (Auto) 0.0 x10^3/uL (0.0-0.7) Basophils # (Auto) 0.0 x10^3/uL (0.0-0.2) Segmented Neutrophils % 85 % (35-66) Band Neutrophils % 3 % (0-9) Lymphocytes % 8 % (24-48) Monocytes % 4 % (0-10) Platelet Estimate Adequate (ADEQUATE) Sodium Level 136 mmol/L (136-145) Potassium Level 3.1 mmol/L (3.5-5.1) Chloride Level 101 mmol/L (98-107) Carbon Dioxide Level 20 mmol/L (21-32) Anion Gap 15 (6-14) Blood Urea Nitrogen 18 mg/dL (8-26) Creatinine 1.5 mg/dL (0.7-1.3) Estimated GFR (Cockcroft-Gault) 47.4 Glucose Level 117 mg/dL (70-99) Calcium Level 8.4 mg/dL (8.5-10.1) CXR, 12/16 IMPRESSION: Worsening interstitial airspace disease noted in the right upper and lower lobes. Micro Microbiology 12/13/19 Blood Culture - Preliminary, Resulted NO GROWTH AFTER 3 DAYS Objective Assessment COVID-19 positive, 12/07. s/p convalescent plasma, 12/15 Pulmonary infiltrates from COVID-19. Fever Leukopenia, rule out secondary infection. Renal insufficiency, which is unclear whether it is new or old. Plan Plan of Care Hydration, supportive care. Continue Rocephin. Azithromycin prior to admit Probiotics C. diff PCR pending BC neg to date Airborne isolation for COVID D/w nursing Attending Co-Sign The patient was seen and interviewed as well as examined at the bedside. The chart was reviewed. The case was discussed. Agree with the plan of care. FREDDIE BARRIOS APRN Dec 17, 2019 11:53 COLT HOLLEY MD Dec 17, 2019 14:05
--- NOTE | 2019-12-17 11:56 | PDOC ---
[employer] [facility] PROGRESS NOTE Chief Complaint Chief Complaint Chest pain and SOB secondary to [id number], + 12/07 Acute Renal Failure secondary to Vasomotor Nephropathy Persistent fevers Continue oxygen supplementation and nonrebreather as needed to maintain O2 sats greater than 88% - monitor on tele, pulse ox - Rocephin for now per ID - Convalescent IG due to persistent fevers -Continue IV fluids for elevated creatinine levels - no indication for remdesevir or steroids at the moment given no 02 requirement - prn tylenol for fever pain - dvt ppx: lovenox - full code - labs in AM History of Present Illness History of Present Illness 64 year old male otherwise healthy from [facility] drove to [place] to visit her daughter for her Bday. states came to [place] on November 30. reported cough and fever and was diagnosed with covid 19 on december 07 in ED. instructed to go home and self quarantine but did not improve. sent home with azithromycin. experienced more chest pain and SOB for past 24 hr along with fever at home so came to ED for further evaluation. her daughter is dx with covid. patient's also has symptoms of covid-19 but has not been tested yet. 12/17/2019 Patient this morning had a desaturation episode to 88% that required him to be on 5 L nonrebreather mask. Patient was also continuing to have fevers in the as high as 101.4. Labs and x-ray were drawn at this time 12/16/2019 No acute events overnight. Patient persistently fevers in the 102. Patient has been oxygenating 96% on room air. His cough has improved and he appears comfortable at this time. 12/15/2019 No acute events overnight. Patient continues to fever with T-max of 102.4. Patient is oxygenating well as well as 95% on room air. Patient states he feels fine with some cough that is bothering him. He is tolerating diet and ambulating without assistance. 12/14/2019 Patient seen and examined bedside today. No acute events overnight. Patient has been remained afebrile and does not require O2 requirements. Saturating 93% on room air Vitals/I&O Vitals/I&O: Vital Signs Date Time Temp Pulse Resp B/P (MAP) Pulse Ox O2 Delivery O2 Flow Rate FiO2 12/17/19 11:20 100.2 77 18 110/57 (74) 93 Room Air 100.2 12/17/19 08:10 4.0 I & O 12/16/19 12/16/19 12/17/19 15:00 23:00 07:00 Intake Total 620 ml 1000 ml 50 ml Output Total 200 ml 300 ml 400 ml Balance 420 ml 700 ml -350 ml Physical Exam Physical Exam: GENERAL: Alert, oriented gentleman, not in distress. VITAL SIGNS: Stable with a T-max 102.5. HEENT: NAD. NECK: Supple, no JVP, no lymphadenopathy. LUNGS: Clear. HEART: S1, S2 regular. ABDOMEN: Benign. EXTREMITIES: No edema, cyanosis. SKIN: Unremarkable. NEUROLOGIC: The patient is alert, awake and appropriate. No focal neurologic deficit. Labs Labs: Laboratory Tests Test 12/17/19 09:40 White Blood Count 9.0 x10^3/uL (4.0-11.0) Red Blood Count 4.21 x10^6/uL (4.30-5.70) Hemoglobin 13.2 g/dL (13.0-17.5) Hematocrit 37.1 % (39.0-53.0) Mean Corpuscular Volume 88 fL (79-100) Mean Corpuscular Hemoglobin 32 pg (25-35) Mean Corpuscular Hemoglobin Concent 36 g/dL (31-37) Red Cell Distribution Width 14.3 % (11.5-14.5) Platelet Count 295 x10^3/uL (140-400) Neutrophils (%) (Auto) 88 % (31-73) Lymphocytes (%) (Auto) 8 % (24-48) Monocytes (%) (Auto) 4 % (0-9) Eosinophils (%) (Auto) 0 % (0-3) Basophils (%) (Auto) 0 % (0-3) Neutrophils # (Auto) 7.9 x10^3/uL (1.8-7.7) Lymphocytes # (Auto) 0.7 x10^3/uL (1.0-4.8) Monocytes # (Auto) 0.4 x10^3/uL (0.0-1.1) Eosinophils # (Auto) 0.0 x10^3/uL (0.0-0.7) Basophils # (Auto) 0.0 x10^3/uL (0.0-0.2) Segmented Neutrophils % 85 % (35-66) Band Neutrophils % 3 % (0-9) Lymphocytes % 8 % (24-48) Monocytes % 4 % (0-10) Platelet Estimate Adequate (ADEQUATE) Sodium Level 136 mmol/L (136-145) Potassium Level 3.1 mmol/L (3.5-5.1) Chloride Level 101 mmol/L (98-107) Carbon Dioxide Level 20 mmol/L (21-32) Anion Gap 15 (6-14) Blood Urea Nitrogen 18 mg/dL (8-26) Creatinine 1.5 mg/dL (0.7-1.3) Estimated GFR (Cockcroft-Gault) 47.4 Glucose Level 117 mg/dL (70-99) Calcium Level 8.4 mg/dL (8.5-10.1) Review of Systems Review of Systems: CONSTITUIONAL: Denies weight loss, fever and chills. HEENT: Denies changes in vision and hearing. RESPIRATORY: Denies SOB and cough. CV: Denies palpitations and CP. GI: Denies abdominal pain, nausea, vomiting and diarrhea. : Denies dysuria and urinary frequency. MSK: Denies myalgia and joint pain. SKIN: Denies rash and pruritus. NEUROLOGICAL: Denies headache and syncope. PSYCHIATRIC: Denies recent changes in mood. Denies anxiety and depression. Assessment and Plan Assessmemt and Plan Problems Medical Problems: (1) Acute renal failure Status: Acute (2) Pneumonia due to 2019 novel coronavirus Status: Acute Comment Review of Relevant I have reviewed the following items ashwin (where applicable) has been applied. Medications: Current Medications Medications (Trade) Dose Ordered Sig/Pam Route PRN Reason Start Time Stop Time Status Last Admin Dose Admin Ceftriaxone Sodium (Rocephin) 1 gm Q24H IVP 12/16/19 17:00 12/16/19 17:17 Justicifation of Admission Dx: Justifications for Admission: Justification of Admission Dx: Yes Acute Renal Failure: 3-Fold Rise in Serum Crea TRAVON NOGUEIRA MD Dec 17, 2019 11:56
[2019-12-17] MEDS ORDERED: POTASSIUM CHLORIDE 20 MEQ TABLET.ER. PO PRN (12:00)
[2019-12-17] MEDS ORDERED: POTASSIUM CHLORIDE 10MEQ 100 ML IV PRN ×2 (12:00)
[2019-12-17] MEDS ORDERED: POTASSIUM BICARB 20 MEQ EFFERVESCENT TABLET. PO PRN (12:00)
[2019-12-17] MEDS ORDERED: POTASSIUM CHLORIDE 20 MEQ TABLET.ER. PO ONE (12:30)
[2019-12-17] MEDS: BENZONATATE 100 MG CAPSULE. PO PRN (13:40)
[2019-12-17] MEDS: ONDANSETRON PF 4 MG/2 ML VIAL. IVP PRN (14:11)
[2019-12-17 15:03] VITALS: BP 117/58
[2019-12-17] MEDS ORDERED: REMDESIVIR LOAD in IV NORMAL SALINE 250ML TV IV ONE (16:00)
[2019-12-17] MEDS: cefTRIAXone IV Push 1 GM VIAL. IVP SCH (16:58)
[2019-12-17 19:50] VITALS: BP 131/76
[2019-12-17] MEDS ORDERED: POTASSIUM & SODIUM PHOSPHATES PACKET. PO PRN (21:00)
[2019-12-17 22:49] VITALS: BP 125/76
[2019-12-17] MEDS: MORPHINE SULFATE 2 MG/ML VIAL. IV PRN (23:49)
[2019-12-18 02:27] VITALS: BP 134/77
[2019-12-18] MEDS: IV NORMAL SALINE 1000ML BAG 1,000 ML IV SCH ×2 (05:07→23:01)
[2019-12-18 05:36] LABS: CALCIUM 7.7 mg/dL (8.5-10.1); CREATININE 1.5 mg/dL (0.7-1.3); GFR 47.4; POTASSIUM 3.5 mmol/L (3.5-5.1)
[2019-12-18] MEDS: ACETAMINOPHEN 325 MG TABLET. PO PRN ×3 (06:46→19:58)
[2019-12-18 07:00] VITALS: BP 108/55
--- NOTE | 2019-12-18 09:40 | CONS ---
DATE OF CONSULTATION: 12/18/2019 I was asked to see this 64-year-old gentleman for acute respiratory failure and COVID-19 pneumonia. HISTORY OF PRESENT ILLNESS: He is a lifelong nonsmoker. He recently drove from [place] to [place] to visit his daughter. He came to the Emergency Room on 12/07, was positive for COVID-19 and was sent home, but he had more shortness of breath, came back and was admitted on 12/13. His oxygenation has been worse. He received the convalescent plasma. He is currently on 100% nonrebreather mask. He was started on remdesivir yesterday. His shortness of breath has improved. He has cough. He denies chest pain. PAST MEDICAL HISTORY: None. Although, he does not see a doctor. SOCIAL HISTORY: No smoking. FAMILY HISTORY: Hypertension. ALLERGIES: No known drug allergies. MEDICATIONS: Remdesivir, Lovenox 40 b.i.d., Rocephin, and Pepcid p.r.n. REVIEW OF SYSTEMS: As mentioned as above, other systems otherwise negative. PHYSICAL EXAMINATION: GENERAL: This is an overweight gentleman. He appears comfortable. VITAL SIGNS: Temperature 101.9, heart rate 79, respiratory rate 24, blood pressure 134/77, and O2 saturation 91%. HEENT: Normocephalic, atraumatic. ABDOMEN: There is no paradoxical. LUNGS: There is no audible wheezing. EXTREMITIES: There is no edema. SKIN: There is no rash. NEUROLOGIC: He is alert. LABORATORY DATA: I reviewed the following lab data: Chest x-ray shows right upper lobe and right lower lobe infiltrate ____. X-ray was done yesterday. WBC 9, hemoglobin 13.2, and platelets 295. Sodium 137, potassium 3.5, chloride 103, CO2 of 22, glucose 103, BUN 20, and creatinine 1.5. Troponin less than 0.01. C-reactive protein was 27.2 on 12/12. Ferritin 2454 on 12/15. Lactic acid 1.3. IMPRESSION: 1. Acute hypoxemic respiratory failure secondary to COVID-19 pneumonia, cannot rule out bacterial pneumonia. 2. Abnormal chest x-ray. 3. Fever. 4. COVID-19 positive. 5. Acute kidney injury. PLAN AND RECOMMENDATIONS: 1. Titrate the FiO2 to keep O2 saturation 92%. 2. Aggressive DVT prophylaxis. I will change his Pepcid to scheduled for stress ulcer prophylaxis. 3. Continue antibiotic per ID. 4. Continue remdesivir. 5. Status post convalescent plasma. 6. Follow up C. diff PCR. 7. Airborne isolation for COVID. 8. Monitor respiratory status very closely. 9. The findings and recommendations were discussed with the patient and RN. Thank you very much for allowing me to participate in care of this very nice gentleman. BRODIE HAMMER M.D. DR: Julio Cesar JOB#: [id number] / [id number]
[2019-12-18] MEDS: ENOXAPARIN 40 MG/0.4 ML SYRINGE. SQ SCH ×2 (09:42→19:58)
[2019-12-18] MEDS: REMDESIVIR 100mg in NORMAL SALINE 250ML X 4 DAYS IV SCH (09:42)
[2019-12-18] MEDS: LACTOBACILLUS RHAMNOSUS GG 1 CAPSULE. PO SCH ×2 (09:42→19:59)
[2019-12-18] MEDS: FAMOTIDINE 20 MG TABLET. PO SCH ×2 (09:43→19:59)
[2019-12-18] MEDS: BENZONATATE 100 MG CAPSULE. PO PRN (09:43)
--- NOTE | 2019-12-18 10:25 | PDOC ---
Infectious Disease Note Subjective Subjective Ongoing fever, Tmax 101.9 O2 demand increase. Breathing better on non re-breather + diarrhea Diminished appetite Denies N/V/cramps/chills/aches ROS ROS as mentioned above Vital Sign Vital Signs Vital Signs Date Time Temp Pulse Resp B/P (MAP) Pulse Ox O2 Delivery O2 Flow Rate FiO2 12/18/19 08:03 Non-Rebreather 10.0 12/18/19 07:00 101.9 79 30 108/55 (72) 92 101.9 Physical Exam PHYSICAL EXAM GENERAL:Propped up in bed, alert in NAD HEENT: oral cavity clear NECK: Supple LUNGS: Fine crackles bases, no accessory muscle use HEART: S1, S2 regular. ABDOMEN: Soft and nontender EXTREMITIES: No edema, cyanosis. SKIN: warm to touch NEUROLOGIC: Alert, answers questions appropriately Labs Lab Laboratory Tests Test 12/18/19 05:00 Sodium Level 137 mmol/L (136-145) Potassium Level 3.5 mmol/L (3.5-5.1) Chloride Level 103 mmol/L (98-107) Carbon Dioxide Level 22 mmol/L (21-32) Anion Gap 12 (6-14) Blood Urea Nitrogen 20 mg/dL (8-26) Creatinine 1.5 mg/dL (0.7-1.3) Estimated GFR (Cockcroft-Gault) 47.4 Glucose Level 103 mg/dL (70-99) Calcium Level 7.7 mg/dL (8.5-10.1) Micro Microbiology 12/13/19 Blood Culture - Preliminary, Resulted NO GROWTH AFTER 4 DAYS Objective Assessment COVID-19 positive, 12/07. s/p convalescent plasma, 12/15 Pulmonary infiltrates from COVID-19. Fever Leukopenia, rule out secondary infection - improved Renal insufficiency, which is unclear whether it is new or old. Hypoxia - now on nonrebreather Diarrhea, C. diff neg 12/15 Plan Plan of Care Remdiziver (12/16) Rocephin. Azithromycin prior to admit Probiotics BC neg to date Await pulm evaluation Airborne isolation for COVID D/w nursing Attending Co-Sign The patient was seen and interviewed as well as examined at the bedside. The chart was reviewed. The case was discussed. Agree with the plan of care. FREDDIE BARRIOS PRESSER ALL AROUND Dec 18, 2019 10:25 COLT HOLLEY MD Dec 18, 2019 10:36
[2019-12-18 10:49] VITALS: BP 116/59
--- NOTE | 2019-12-18 13:35 | PDOC ---
[facility] [facility] PROGRESS NOTE Chief Complaint Chief Complaint Chest pain and SOB secondary to [id number], + 12/07 Acute Renal Failure secondary to Vasomotor Nephropathy Persistent fevers Continue oxygen supplementation and nonrebreather as needed to maintain O2 sats greater than 88% - monitor on tele, pulse ox - Rocephin for now per ID - Convalescent IG due to persistent fevers Start Remdesivir -Continue IV fluids for elevated creatinine levels - prn tylenol for fever pain - dvt ppx: lovenox - full code - labs in AM History of Present Illness History of Present Illness 64 year old male otherwise healthy from [place] drove to [place] to visit her daughter for her Bday. states came to [place] on November 30. reported cough and fever and was diagnosed with covid 19 on december 07 in ED. instructed to go home and self quarantine but did not improve. sent home with azithromycin. experienced more chest pain and SOB for past 24 hr along with fever at home so came to ED for further evaluation. her daughter is dx with covid. patient's also has symptoms of covid-19 but has not been tested yet. 12/18/2019 No acute events overnight. Patient did have fevers of 101.9. Patient is saturating 92% on nonrebreather. Patient seen and examined. He appears comfortable and in no short of breath. However due to his up titration of his O2 requirements patient will need to be monitored with continued IV antibiotics, IV convalescent Ig, and IV Remdesivir. 12/17/2019 Patient this morning had a desaturation episode to 88% that required him to be on 5 L nonrebreather mask. Patient was also continuing to have fevers in the as high as 101.4. Labs and x-ray were drawn at this time 12/16/2019 No acute events overnight. Patient persistently fevers in the 102. Patient has been oxygenating 96% on room air. His cough has improved and he appears comfortable at this time. 12/15/2019 No acute events overnight. Patient continues to fever with T-max of 102.4. Patient is oxygenating well as well as 95% on room air. Patient states he feels fine with some cough that is bothering him. He is tolerating diet and ambulating without assistance. 12/14/2019 Patient seen and examined bedside today. No acute events overnight. Patient has been remained afebrile and does not require O2 requirements. Saturating 93% on room air Vitals/I&O Vitals/I&O: Vital Signs Date Time Temp Pulse Resp B/P (MAP) Pulse Ox O2 Delivery O2 Flow Rate FiO2 12/18/19 10:49 98.8 73 22 116/59 (78) 96 Venturi Mask 10.0 98.8 I & O 12/17/19 12/17/19 12/18/19 15:00 23:00 07:00 Intake Total 500 ml 450 ml 150 ml Output Total 500 ml Balance 500 ml -50 ml 150 ml Physical Exam Physical Exam: GENERAL:Propped up in bed, alert in NAD HEENT: oral cavity clear NECK: Supple LUNGS: Fine crackles bases, no accessory muscle use HEART: S1, S2 regular. ABDOMEN: Soft and nontender EXTREMITIES: No edema, cyanosis. SKIN: warm to touch NEUROLOGIC: Alert, answers questions appropriately Labs Labs: Laboratory Tests Test 12/18/19 05:00 Sodium Level 137 mmol/L (136-145) Potassium Level 3.5 mmol/L (3.5-5.1) Chloride Level 103 mmol/L (98-107) Carbon Dioxide Level 22 mmol/L (21-32) Anion Gap 12 (6-14) Blood Urea Nitrogen 20 mg/dL (8-26) Creatinine 1.5 mg/dL (0.7-1.3) Estimated GFR (Cockcroft-Gault) 47.4 Glucose Level 103 mg/dL (70-99) Calcium Level 7.7 mg/dL (8.5-10.1) Review of Systems Review of Systems: CONSTITUIONAL: Denies weight loss, fever and chills. HEENT: Denies changes in vision and hearing. RESPIRATORY: Denies SOB and cough. CV: Denies palpitations and CP. GI: Denies abdominal pain, nausea, vomiting and diarrhea. : Denies dysuria and urinary frequency. MSK: Denies myalgia and joint pain. SKIN: Denies rash and pruritus. NEUROLOGICAL: Denies headache and syncope. PSYCHIATRIC: Denies recent changes in mood. Denies anxiety and depression. Assessment and Plan Assessmemt and Plan Problems Medical Problems: (1) Acute renal failure Status: Acute (2) Pneumonia due to 2019 novel coronavirus Status: Acute Comment Review of Relevant I have reviewed the following items ashwin (where applicable) has been applied. Medications: Current Medications Medications (Trade) Dose Ordered Sig/Pam Route PRN Reason Start Time Stop Time Status Last Admin Dose Admin Ondansetron HCl (Zofran) 4 mg PRN Q6HRS PRN IVP NAUSEA/VOMITING 12/17/19 14:15 12/17/19 14:11 Non-Formulary Medication 1 ea/ Sodium Chloride 210 ml @ 210 mls/hr 1X ONCE IV 12/17/19 16:00 12/17/19 16:59 DC 12/17/19 15:45 Non-Formulary Medication 1 ea/ Sodium Chloride 230 ml @ 460 mls/hr Q24H IV 12/18/19 09:00 12/21/19 09:29 12/18/19 09:42 Morphine Sulfate (Morphine Sulfate) 2 mg PRN Q2HR PRN IV SEVERE PAIN 7-10 12/17/19 23:45 12/17/19 23:49 Famotidine (Pepcid) 20 mg BID PO 12/18/19 09:00 12/18/19 09:43 Justicifation of Admission Dx: Justifications for Admission: Justification of Admission Dx: Yes Acute Renal Failure: 3-Fold Rise in Serum Crea TRAVON NOGUEIRA MD Dec 18, 2019 13:35
[2019-12-18] MEDS: THIAMINE 100 MG TABLET. PO SCH (14:31)
[2019-12-18] MEDS: PIPERACILLIN/TAZOBACTAM 3.375 GM in IV NORMAL SALINE 50ML 50 ML IV SCH ×3 (14:31→23:01)
[2019-12-18] MEDS: ASCORBIC ACID 500 MG TABLET PO SCH (14:31)
[2019-12-18 15:00] VITALS: BP 120/63
[2019-12-18 19:00] VITALS: BP 132/76
[2019-12-18 23:00] VITALS: BP 132/63
[2019-12-18] MEDS: MORPHINE SULFATE 2 MG/ML VIAL. IV PRN (23:19)
[2019-12-19] VITALS (7 sets, daily range): BP systolic 100–133; BP diastolic 55–75
[2019-12-19] MEDS: ACETAMINOPHEN 325 MG TABLET. PO PRN ×4 (01:56→23:44)
[2019-12-19] MEDS: PIPERACILLIN/TAZOBACTAM 3.375 GM in IV NORMAL SALINE 50ML 50 ML IV SCH ×4 (05:09→23:44)
[2019-12-19] MEDS: MORPHINE SULFATE 2 MG/ML VIAL. IV PRN ×2 (05:19→22:04)
[2019-12-19 08:08] LABS: BASO % 1 % (0-3); EOS % 0 % (0-3); HEMATOCRIT 36.4 % (39.0-53.0); HEMOGLOBIN 12.4 g/dL (13.0-17.5); LYMPH # 0.8 x10^3/uL (1.0-4.8); LYMPH % 9 % (24-48); MEAN CORPUSCULAR HEMOGLOBIN 31 pg (25-35); MEAN CORPUSCULAR HGB CONC 34 g/dL (31-37); MEAN CORPUSCULAR VOLUME 90 fL (79-100); MONO # 0.4 x10^3/uL (0.0-1.1); MONO % 4 % (0-9); NEUT # 7.5 x10^3/uL (1.8-7.7); NEUT % 86 % (31-73); PLATELET COUNT 334 x10^3/uL (140-400); RED BLOOD COUNT 4.03 x10^6/uL (4.30-5.70); WHITE BLOOD COUNT 8.7 x10^3/uL (4.0-11.0)
[2019-12-19 08:31] LABS: CALCIUM 7.9 mg/dL (8.5-10.1); CREATININE 1.6 mg/dL (0.7-1.3); MAGNESIUM 2.4 mg/dL (1.8-2.4); PHOSPHORUS 2.1 mg/dL (2.6-4.7); POTASSIUM 3.7 mmol/L (3.5-5.1)
[2019-12-19] MEDS: ENOXAPARIN 40 MG/0.4 ML SYRINGE. SQ SCH ×2 (09:48→20:18)
[2019-12-19] MEDS: FAMOTIDINE 20 MG TABLET. PO SCH ×2 (09:48→20:18)
[2019-12-19] MEDS: LACTOBACILLUS RHAMNOSUS GG 1 CAPSULE. PO SCH ×2 (09:48→20:17)
[2019-12-19] MEDS: REMDESIVIR 100mg in NORMAL SALINE 250ML X 4 DAYS IV SCH (09:48)
[2019-12-19] MEDS: THIAMINE 100 MG TABLET. PO SCH (09:48)
[2019-12-19] MEDS: ASCORBIC ACID 500 MG TABLET PO SCH (09:48)
--- NOTE | 2019-12-19 11:05 | PDOC ---
PROGRESS NOTES Chief Complaint Chief Complaint Chest pain and SOB secondary to [id number], + 12/07 Acute Renal Failure secondary to Vasomotor Nephropathy Persistent fevers Continue oxygen supplementation and nonrebreather as needed to maintain O2 sats greater than 88% - monitor on tele, pulse ox - Rocephin for now per ID - Convalescent IG due to persistent fevers Start Remdesivir -Continue IV fluids for elevated creatinine levels - prn tylenol for fever pain - dvt ppx: lovenox - full code - labs in AM History of Present Illness History of Present Illness Mr Smith is a 64 yo M w/ no PMHx otherwise healthy from [place] drove to [place] to visit her daughter for her Bday. states came to [place] on November 30. reported cough and fever and was diagnosed with covid 19 on december 07 in ED. instructed to go home and self quarantine but did not improve. sent home with azithromycin. experienced more chest pain and SOB for past 24 hr along with fever at home so came to ED for further evaluation. her daughter is dx with covid. patient's also has symptoms of covid-19 but has not been tested yet. 12/13: Patient seen and examined bedside today. No acute events overnight. Patient has been remained afebrile and does not require O2 requirements. Saturating 93% on room air 12/14: T-max of 102.4. Patient is oxygenating well as well as 95% on room air. Patient states he feels fine with some cough that is bothering him. He is tolerating diet and ambulating without assistance. 12/15: No acute events overnight. Patient persistently fevers in the 102. Patient has been oxygenating 96% on room air. His cough has improved and he appears comfortable at this time. 12/16: Desaturation episode to 88% that required him to be on 5 L nonrebreather mask. Patient was also continuing to have fevers in the as high as 101.4. Labs and x-ray were drawn at this time 12/17: Fevers of 101.9. Patient is saturating 92% on nonrebreather. Continued IV antibiotics, IV convalescent Ig, and IV Remdesivir. Febrile 102.4 F this morning. On 6 L nasal cannula and nonrebreather mask. He states he feels better however he has significant desaturations and continues to remove his oxygen Vitals Vitals Vital Signs Date Time Temp Pulse Resp B/P (MAP) Pulse Ox O2 Delivery O2 Flow Rate FiO2 12/19/19 08:00 102.4 74 32 133/67 (89) 83 NonRebreather Mask 15.0 102.4 Physical Exam Physical Exam GENERAL:Propped up in bed, alert in NAD HEENT: oral cavity clear NECK: Supple LUNGS: Fine crackles bases, no accessory muscle use HEART: S1, S2 regular. ABDOMEN: Soft and nontender EXTREMITIES: No edema, cyanosis. SKIN: warm to touch NEUROLOGIC: Alert, answers questions appropriately Labs LABS Laboratory Tests Test 12/19/19 06:58 White Blood Count 8.7 x10^3/uL (4.0-11.0) Red Blood Count 4.03 x10^6/uL (4.30-5.70) Hemoglobin 12.4 g/dL (13.0-17.5) Hematocrit 36.4 % (39.0-53.0) Mean Corpuscular Volume 90 fL (79-100) Mean Corpuscular Hemoglobin 31 pg (25-35) Mean Corpuscular Hemoglobin Concent 34 g/dL (31-37) Red Cell Distribution Width 14.0 % (11.5-14.5) Platelet Count 334 x10^3/uL (140-400) Neutrophils (%) (Auto) 86 % (31-73) Lymphocytes (%) (Auto) 9 % (24-48) Monocytes (%) (Auto) 4 % (0-9) Eosinophils (%) (Auto) 0 % (0-3) Basophils (%) (Auto) 1 % (0-3) Neutrophils # (Auto) 7.5 x10^3/uL (1.8-7.7) Lymphocytes # (Auto) 0.8 x10^3/uL (1.0-4.8) Monocytes # (Auto) 0.4 x10^3/uL (0.0-1.1) Eosinophils # (Auto) 0.0 x10^3/uL (0.0-0.7) Basophils # (Auto) 0.0 x10^3/uL (0.0-0.2) Sodium Level 140 mmol/L (136-145) Potassium Level 3.7 mmol/L (3.5-5.1) Chloride Level 107 mmol/L (98-107) Carbon Dioxide Level 22 mmol/L (21-32) Anion Gap 11 (6-14) Blood Urea Nitrogen 21 mg/dL (8-26) Creatinine 1.6 mg/dL (0.7-1.3) Estimated GFR (Cockcroft-Gault) 44.0 Glucose Level 94 mg/dL (70-99) Calcium Level 7.9 mg/dL (8.5-10.1) Phosphorus Level 2.1 mg/dL (2.6-4.7) Magnesium Level 2.4 mg/dL (1.8-2.4) Assessment and Plan Assessmemt and Plan Problems Medical Problems: (1) Acute renal failure Status: Acute (2) Pneumonia due to 2019 novel coronavirus Status: Acute Comment Review of Relevant I have reviewed the following items ashwin (where applicable) has been applied. Labs Laboratory Tests Test 12/18/19 05:00 12/19/19 06:58 Sodium Level 137 mmol/L (136-145) 140 mmol/L (136-145) Potassium Level 3.5 mmol/L (3.5-5.1) 3.7 mmol/L (3.5-5.1) Chloride Level 103 mmol/L (98-107) 107 mmol/L (98-107) Carbon Dioxide Level 22 mmol/L (21-32) 22 mmol/L (21-32) Anion Gap 12 (6-14) 11 (6-14) Blood Urea Nitrogen 20 mg/dL (8-26) 21 mg/dL (8-26) Creatinine 1.5 mg/dL (0.7-1.3) 1.6 mg/dL (0.7-1.3) Estimated GFR (Cockcroft-Gault) 47.4 44.0 Glucose Level 103 mg/dL (70-99) 94 mg/dL (70-99) Calcium Level 7.7 mg/dL (8.5-10.1) 7.9 mg/dL (8.5-10.1) White Blood Count 8.7 x10^3/uL (4.0-11.0) Red Blood Count 4.03 x10^6/uL (4.30-5.70) Hemoglobin 12.4 g/dL (13.0-17.5) Hematocrit 36.4 % (39.0-53.0) Mean Corpuscular Volume 90 fL (79-100) Mean Corpuscular Hemoglobin 31 pg (25-35) Mean Corpuscular Hemoglobin Concent 34 g/dL (31-37) Red Cell Distribution Width 14.0 % (11.5-14.5) Platelet Count 334 x10^3/uL (140-400) Neutrophils (%) (Auto) 86 % (31-73) Lymphocytes (%) (Auto) 9 % (24-48) Monocytes (%) (Auto) 4 % (0-9) Eosinophils (%) (Auto) 0 % (0-3) Basophils (%) (Auto) 1 % (0-3) Neutrophils # (Auto) 7.5 x10^3/uL (1.8-7.7) Lymphocytes # (Auto) 0.8 x10^3/uL (1.0-4.8) Monocytes # (Auto) 0.4 x10^3/uL (0.0-1.1) Eosinophils # (Auto) 0.0 x10^3/uL (0.0-0.7) Basophils # (Auto) 0.0 x10^3/uL (0.0-0.2) Phosphorus Level 2.1 mg/dL (2.6-4.7) Magnesium Level 2.4 mg/dL (1.8-2.4) Laboratory Tests Test 12/19/19 06:58 White Blood Count 8.7 x10^3/uL (4.0-11.0) Red Blood Count 4.03 x10^6/uL (4.30-5.70) Hemoglobin 12.4 g/dL (13.0-17.5) Hematocrit 36.4 % (39.0-53.0) Mean Corpuscular Volume 90 fL (79-100) Mean Corpuscular Hemoglobin 31 pg (25-35) Mean Corpuscular Hemoglobin Concent 34 g/dL (31-37) Red Cell Distribution Width 14.0 % (11.5-14.5) Platelet Count 334 x10^3/uL (140-400) Neutrophils (%) (Auto) 86 % (31-73) Lymphocytes (%) (Auto) 9 % (24-48) Monocytes (%) (Auto) 4 % (0-9) Eosinophils (%) (Auto) 0 % (0-3) Basophils (%) (Auto) 1 % (0-3) Neutrophils # (Auto) 7.5 x10^3/uL (1.8-7.7) Lymphocytes # (Auto) 0.8 x10^3/uL (1.0-4.8) Monocytes # (Auto) 0.4 x10^3/uL (0.0-1.1) Eosinophils # (Auto) 0.0 x10^3/uL (0.0-0.7) Basophils # (Auto) 0.0 x10^3/uL (0.0-0.2) Sodium Level 140 mmol/L (136-145) Potassium Level 3.7 mmol/L (3.5-5.1) Chloride Level 107 mmol/L (98-107) Carbon Dioxide Level 22 mmol/L (21-32) Anion Gap 11 (6-14) Blood Urea Nitrogen 21 mg/dL (8-26) Creatinine 1.6 mg/dL (0.7-1.3) Estimated GFR (Cockcroft-Gault) 44.0 Glucose Level 94 mg/dL (70-99) Calcium Level 7.9 mg/dL (8.5-10.1) Phosphorus Level 2.1 mg/dL (2.6-4.7) Magnesium Level 2.4 mg/dL (1.8-2.4) Microbiology 12/13/19 Blood Culture - Final, Complete NO GROWTH AFTER 5 DAYS Medications Current Medications Azithromycin 250 ml @ 250 mls/hr 1X ONCE IV Last administered on 12/13/19at 14:45; Start 12/13/19 at 14:45; Stop 12/13/19 at 15:44; Status DC Methylprednisolone Sodium Succinate (SOLU-Medrol 125MG VIAL) 125 mg 1X ONCE IV Last administered on 12/13/19at 15:23; Start 12/13/19 at 15:00; Stop 12/13/19 at 15:01; Status DC Ibuprofen (Motrin) 800 mg 1X ONCE PO Last administered on 12/13/19at 15:23; Start 12/13/19 at 15:00; Stop 12/13/19 at 15:01; Status DC Sodium Chloride 1,000 ml @ 1,000 mls/hr 1X ONCE IV Last administered on 12/13/19at 15:58; Start 12/13/19 at 16:00; Stop 12/13/19 at 16:59; Status DC Ceftriaxone Sodium (Rocephin) 1 gm 1X ONCE IVP Last administered on 12/13/19at 17:43; Start 12/13/19 at 17:00; Stop 12/13/19 at 17:02; Status DC Ondansetron HCl (Zofran) 4 mg PRN Q8HRS PRN IV NAUSEA/VOMITING; Start 12/13/19 at 17:30; Stop 12/14/19 at 17:29; Status DC Sodium Chloride 1,000 ml @ 100 mls/hr Q10H IV ; Start 12/13/19 at 17:26; Stop 12/13/19 at 22:10; Status DC Enoxaparin Sodium (Lovenox Per Pharmacy Prophylaxis Dosing) 1 each PRN DAILY PRN MC SEE COMMENTS; Start 12/13/19 at 18:30 Ceftriaxone Sodium (Rocephin) 1 gm Q24H IVP Last administered on 12/15/19at 17:10; Start 12/14/19 at 17:00; Stop 12/16/19 at 10:38; Status DC Azithromycin 500 mg/Sodium Chloride 250 ml @ 250 mls/hr Q24H IV ; Start 12/14/19 at 15:00; Stop 12/14/19 at 11:04; Status DC Enoxaparin Sodium (Lovenox 40mg Syringe) 40 mg Q24H SQ Last administered on 12/14/19at 21:49; Start 12/13/19 at 21:00; Stop 12/15/19 at 14:05; Status DC Sodium Chloride 1,000 ml @ 75 mls/hr [id number] IV Last administered on 12/18/19at 23:01; Start 12/13/19 at 18:30 Acetaminophen (Tylenol) 650 mg PRN Q6HRS PRN PO fever Last administered on 12/19/19at 10:05; Start 12/13/19 at 18:45 Potassium Chloride (Klor-Con) 40 meq 1X ONCE PO Last administered on 12/13/19at 20:30; Start 12/13/19 at 19:00; Stop 12/13/19 at 19:01; Status DC Lactobacillus Rhamnosus (Culturelle) 1 cap BID PO Last administered on 12/19/19at 09:48; Start 12/14/19 at 13:00 Benzonatate (Tessalon Perle) 100 mg PRN Q8HRS PRN PO COUGH Last administered on 12/18/19at 09:43; Start 12/15/19 at 00:15 Enoxaparin Sodium (Lovenox 40mg Syringe) 40 mg BID SQ Last administered on 12/19/19at 09:48; Start 12/15/19 at 21:00 Amoxicillin (Amoxil) 500 mg [id number] PO ; Start 12/16/19 at 14:00; Stop 12/16/19 at 11:03; Status DC Doxycycline Hyclate (Vibra-Tab) 100 mg BID PO ; Start 12/16/19 at 11:00; Stop 12/16/19 at 11:03; Status DC Ceftriaxone Sodium (Rocephin) 1 gm Q24H IVP Last administered on 12/17/19at 16:58; Start 12/16/19 at 17:00; Stop 12/18/19 at 12:38; Status DC Famotidine (Pepcid) 20 mg PRN DAILY PRN PO HEARTBURN. Last administered on 12/16/19at 11:35; Start 12/16/19 at 11:30; Stop 12/18/19 at 08:58; Status DC Potassium Chloride (Klor-Con) 40 meq PRN DAILY PRN PO PER PROTOCOL; Start at 12:00 Potassium Chloride/Water 100 ml @ 100 mls/hr PRN Q1HR PRN IV SEE COMMENTS; Start 12/17/19 at 12:00 Potassium Phos/ Sodium Phos (Phos-Nak) 1 pkt PRN BID PRN PO SEE COMMENTS; Start 12/17/19 at 21:00 Potassium Bicarbonate (Potassium Effervescent Tablet) 40 meq PRN Q4HRS PRN PO PER PROTOCOL; Start 12/17/19 at 12:00 Potassium Chloride/Water 100 ml @ 100 mls/hr PRN Q1HR PRN IV PER PROTOCOL; Start 12/17/19 at 12:00 Potassium Chloride (Klor-Con) 40 meq 1X ONCE PO Last administered on 12/17/19at 12:45; Start 12/17/19 at 12:30; Stop 12/17/19 at 12:31; Status DC Ondansetron HCl (Zofran) 4 mg PRN Q6HRS PRN IVP NAUSEA/VOMITING Last administered on 12/17/19at 14:11; Start 12/17/19 at 14:15 Non-Formulary Medication 1 ea/ Sodium Chloride 210 ml @ 210 mls/hr 1X ONCE IV Last administered on 12/17/19at 15:45; Start 12/17/19 at 16:00; Stop 12/17/19 at 16:59; Status DC Non-Formulary Medication 1 ea/ Sodium Chloride 230 ml @ 460 mls/hr Q24H IV Last administered on 12/19/19at 09:48; Start 12/18/19 at 09:00; Stop 12/21/19 at 09:29 Morphine Sulfate (Morphine Sulfate) 2 mg PRN Q2HR PRN IV SEVERE PAIN 7-10 Last administered on 12/19/19at 05:19; Start 12/17/19 at 23:45 Cyclobenzaprine HCl (Flexeril) 5 mg PRN Q6HRS PRN PO MUSCLE SPASMS; Start 12/17/19 at 23:45 Famotidine (Pepcid) 20 mg BID PO Last administered on 12/19/19at 09:48; Start 12/18/19 at 09:00 Piperacillin Sod/ Tazobactam Sod 3.375 gm/Sodium Chloride 50 ml @ 100 mls/hr Q6HRS IV Last administered on 12/19/19at 05:09; Start 12/18/19 at 13:00 Ascorbic Acid (Vitamin C) 500 mg DAILY PO Last administered on 12/19/19at 09:48; Start 12/18/19 at 14:00 Thiamine Mononitrate (Vitamin B-1) 100 mg DAILY PO Last administered on 12/19/19at 09:48; Start 12/18/19 at 14:00 Active Scripts Active [place] 5-325 Tablet (Acetaminophen/Hydrocodone Bitart) 1 Each Tablet 1 Tab PO BID 3 Days Reported Proair Hfa Inhaler (Albuterol Sulfate) 8.5 Gm Hfa.aer.ad 2 Puff IH PRN Q4-6HRS PRN 21 Days Hemmorex-Hc (Hydrocortisone Acetate) 25 Mg Supp.rect 25 Mg RC PRN BID PRN Fluticasone Propionate Nasal [place] (Fluticasone Propionate) 16 Gm [place].susp 2 [place] NS DAILY Atorvastatin Calcium 10 Mg Tablet 1 Tab PO DAILY Sudogest (Pseudoephedrine Hcl) 30 Mg Tablet 30 Mg PO PRN Q6HRS PRN Loratadine 10 Mg Tablet 1 Tab PO DAILY Metoprolol Tartrate 50 Mg Tablet 1 Tab PO DAILY Omeprazole 20 Mg Capsule.dr 1 Cap PO DAILY06 Flomax (Tamsulosin Hcl) 0.4 Mg Cap.er.24h 1 Cap PO DAILY Losartan-Hctz 50-12.5 Mg Tab (Losartan/Hydrochlorothiazide) 1 Each Tablet 1 Tab PO DAILY Aspirin Ec (Aspirin) 81 Mg Tablet.dr 1 Tab PO DAILY Vitals/I & O Vital Sign - Last 24 Hours 12/18/19 12/18/19 12/18/19 12/18/19 15:00 19:00 19:41 21:04 Temp 98.9 102.0 100.0 98.9 102.0 100.0 Pulse 64 98 Resp 19 22 B/P (MAP) 120/63 (82) 132/76 (94) Pulse Ox 92 95 O2 Delivery NonRebreather Mask Nasal Cannula Non-Rebreather O2 Flow Rate 15.0 6.0 10.0 12/18/19 12/18/19 12/18/19 12/19/19 23:00 23:19 23:49 02:56 Temp 100.9 99.9 100.9 99.9 Pulse 66 71 Resp 20 18 18 18 B/P (MAP) 132/63 (86) 109/59 (76) Pulse Ox 96 94 92 O2 Delivery Nasal Cannula NonRebreather Mask NonRebreather Mask O2 Flow Rate 6.0 15.0 15.0 12/19/19 12/19/19 12/19/19 05:19 05:49 08:00 Temp 102.4 102.4 Pulse 74 Resp 22 20 32 B/P (MAP) 133/67 (89) Pulse Ox 83 O2 Delivery NonRebreather Mask O2 Flow Rate 15.0 Intake and Output 12/18/19 12/18/19 12/19/19 15:00 23:00 07:00 Intake Total 300 ml 280 ml 1225 ml Output Total 775 ml 550 ml Balance 300 ml -495 ml 675 ml Justicifation of Admission Dx: Justifications for Admission: Justification of Admission Dx: Yes Acute Renal Failure: 3-Fold Rise in Serum Crea ASHLEY DE LA CRUZ MD Dec 19, 2019 11:05
[2019-12-19] MEDS: IV NORMAL SALINE 1000ML BAG 1,000 ML IV SCH (11:31)
--- NOTE | 2019-12-19 11:37 | PDOC ---
Infectious Disease Note Subjective: Subjective Ongoing fever, Tmax 102 O2 demand increase. Discussed with nursing he keeps on keeping his O2 off Breathing better on non re-breather Denies worsening cough or shortness of breath + diarrhea Diminished appetite Denies nausea, vomiting, abdominal pain, rash Otherwise as above Vital Signs: Vital Signs Vital Signs Date Time Temp Pulse Resp B/P (MAP) Pulse Ox O2 Delivery O2 Flow Rate FiO2 12/19/19 08:00 Non-Rebreather 15.0 12/19/19 08:00 102.4 74 32 133/67 (89) 83 102.4 Physical Exam: PHYSICAL EXAM GENERAL:Propped up in bed, alert in NAD HEENT: oral cavity clear NECK: Supple LUNGS: Fine crackles bases, no accessory muscle use HEART: S1, S2 regular. ABDOMEN: Soft and nontender EXTREMITIES: No edema, cyanosis. SKIN: warm to touch NEUROLOGIC: Alert, answers questions appropriately Medications: Inpatient Meds: Current Medications Medications (Trade) Dose Ordered Sig/Pam Start Time Stop Time Status Last Admin Dose Admin Acetaminophen (Tylenol) 650 mg PRN Q6HRS PRN 12/13/19 18:45 12/19/19 10:05 650 MG Amoxicillin (Amoxil) 500 mg [id number] 12/16/19 14:00 12/16/19 11:03 DC Ascorbic Acid (Vitamin C) 500 mg DAILY 12/18/19 14:00 12/19/19 09:48 500 MG Azithromycin 250 ml @ 250 mls/hr 1X ONCE 12/13/19 14:45 12/13/19 15:44 DC 12/13/19 14:45 250 MLS/HR Azithromycin 500 mg/Sodium Chloride 250 ml @ 250 mls/hr Q24H 12/14/19 15:00 12/14/19 11:04 DC Benzonatate (Tessalon Perle) 100 mg PRN Q8HRS PRN 12/15/19 00:15 12/18/19 09:43 100 MG Ceftriaxone Sodium (Rocephin) 1 gm Q24H 12/16/19 17:00 12/18/19 12:38 DC 12/17/19 16:58 1 GM Cyclobenzaprine HCl (Flexeril) 5 mg PRN Q6HRS PRN 12/17/19 23:45 Doxycycline Hyclate (Vibra-Tab) 100 mg BID 12/16/19 11:00 12/16/19 11:03 DC Enoxaparin Sodium (Lovenox 40mg Syringe) 40 mg BID 12/15/19 21:00 12/19/19 09:48 40 MG Enoxaparin Sodium (Lovenox Per Pharmacy Prophylaxis Dosing) 1 each PRN DAILY PRN 12/13/19 18:30 Famotidine (Pepcid) 20 mg BID 12/18/19 09:00 12/19/19 09:48 20 MG Ibuprofen (Motrin) 800 mg 1X ONCE 12/13/19 15:00 12/13/19 15:01 DC 12/13/19 15:23 800 MG Lactobacillus Rhamnosus (Culturelle) 1 cap BID 12/14/19 13:00 12/19/19 09:48 1 CAP Methylprednisolone Sodium Succinate (SOLU-Medrol 125MG VIAL) 125 mg 1X ONCE 12/13/19 15:00 12/13/19 15:01 DC 12/13/19 15:23 125 MG Morphine Sulfate (Morphine Sulfate) 2 mg PRN Q2HR PRN 12/17/19 23:45 12/19/19 05:19 2 MG Non-Formulary Medication 1 ea/ Sodium Chloride 230 ml @ 460 mls/hr Q24H 12/18/19 09:00 12/21/19 09:29 12/19/19 09:48 460 MLS/HR Ondansetron HCl (Zofran) 4 mg PRN Q6HRS PRN 12/17/19 14:15 12/17/19 14:11 4 MG Piperacillin Sod/ Tazobactam Sod 3.375 gm/Sodium Chloride 50 ml @ 100 mls/hr Q6HRS 12/18/19 13:00 12/19/19 05:09 100 MLS/HR Potassium Bicarbonate (Potassium Effervescent Tablet) 40 meq PRN Q4HRS PRN 12/17/19 12:00 Potassium Chloride/Water 100 ml @ 100 mls/hr PRN Q1HR PRN 12/17/19 12:00 Potassium Chloride (Klor-Con) 40 meq 1X ONCE 12/17/19 12:30 12/17/19 12:31 DC 12/17/19 12:45 40 MEQ Potassium Phos/ Sodium Phos (Phos-Nak) 1 pkt PRN BID PRN 12/17/19 21:00 Sodium Chloride 1,000 ml @ 75 mls/hr [id number] 12/13/19 18:30 12/18/19 23:01 75 MLS/HR Thiamine Mononitrate (Vitamin B-1) 100 mg DAILY 12/18/19 14:00 12/19/19 09:48 100 MG Zinc Sulfate (Orazinc) 220 mg QHS 12/19/19 21:00 Labs: Lab Laboratory Tests Test 12/19/19 06:58 White Blood Count 8.7 x10^3/uL (4.0-11.0) Red Blood Count 4.03 x10^6/uL (4.30-5.70) Hemoglobin 12.4 g/dL (13.0-17.5) Hematocrit 36.4 % (39.0-53.0) Mean Corpuscular Volume 90 fL (79-100) Mean Corpuscular Hemoglobin 31 pg (25-35) Mean Corpuscular Hemoglobin Concent 34 g/dL (31-37) Red Cell Distribution Width 14.0 % (11.5-14.5) Platelet Count 334 x10^3/uL (140-400) Neutrophils (%) (Auto) 86 % (31-73) Lymphocytes (%) (Auto) 9 % (24-48) Monocytes (%) (Auto) 4 % (0-9) Eosinophils (%) (Auto) 0 % (0-3) Basophils (%) (Auto) 1 % (0-3) Neutrophils # (Auto) 7.5 x10^3/uL (1.8-7.7) Lymphocytes # (Auto) 0.8 x10^3/uL (1.0-4.8) Monocytes # (Auto) 0.4 x10^3/uL (0.0-1.1) Eosinophils # (Auto) 0.0 x10^3/uL (0.0-0.7) Basophils # (Auto) 0.0 x10^3/uL (0.0-0.2) Sodium Level 140 mmol/L (136-145) Potassium Level 3.7 mmol/L (3.5-5.1) Chloride Level 107 mmol/L (98-107) Carbon Dioxide Level 22 mmol/L (21-32) Anion Gap 11 (6-14) Blood Urea Nitrogen 21 mg/dL (8-26) Creatinine 1.6 mg/dL (0.7-1.3) Estimated GFR (Cockcroft-Gault) 44.0 Glucose Level 94 mg/dL (70-99) Calcium Level 7.9 mg/dL (8.5-10.1) Phosphorus Level 2.1 mg/dL (2.6-4.7) Magnesium Level 2.4 mg/dL (1.8-2.4) Objective: Assessment: COVID-19 positive, 12/07. s/p convalescent plasma, 12/15 on remdesivir 12/16 Pulmonary infiltrates from COVID-19. Fever Leukopenia, rule out secondary infection - improved Renal insufficiency, which is unclear whether it is new or old. Hypoxia - now on nonrebreather Diarrhea, C. diff neg 12/15 Plan: Plan of Care Remdesivir (12/16) Cont Zosyn 12/17, patient was on ceftriaxone was on Azithromycin prior to admit Encouraged to keep O2 on as advised Probiotics BC neg to date C diff neg Airborne isolation for COVID D/w nursing MADDISON HOLLEY MD Dec 19, 2019 11:37
[2019-12-19] MEDS ORDERED: POTASSIUM PHOSPHATE,MONOBASIC 500 MG TABLET. PO SCH (14:15)
[2019-12-19] MEDS: POTASSIUM PHOSPHATE,MONOBASIC 500 MG TABLET. PO SCH (15:05)
--- NOTE | 2019-12-19 15:18 | PDOC ---
PULMONARY PROGRESS NOTES Subjective Patient not more short of air feels better Vitals Vital Signs Date Time Temp Pulse Resp B/P (MAP) Pulse Ox O2 Delivery O2 Flow Rate FiO2 12/19/19 13:52 107/61 (76) 12/19/19 11:52 100.0 68 24 90 NonRebreather Mask 15.0 100.0 ROS: No Nausea, No Chest Pain, No Abdominal Pain, No Increase Cough General: Alert Lungs: Crackles Cardiovascular: S1, S2 Abdomen: Soft Neuro Exam: Alert Extremities: No Edema Skin: Warm Labs Laboratory Tests Test 12/18/19 05:00 12/19/19 06:58 Sodium Level 137 mmol/L (136-145) 140 mmol/L (136-145) Potassium Level 3.5 mmol/L (3.5-5.1) 3.7 mmol/L (3.5-5.1) Chloride Level 103 mmol/L (98-107) 107 mmol/L (98-107) Carbon Dioxide Level 22 mmol/L (21-32) 22 mmol/L (21-32) Anion Gap 12 (6-14) 11 (6-14) Blood Urea Nitrogen 20 mg/dL (8-26) 21 mg/dL (8-26) Creatinine 1.5 mg/dL (0.7-1.3) 1.6 mg/dL (0.7-1.3) Estimated GFR (Cockcroft-Gault) 47.4 44.0 Glucose Level 103 mg/dL (70-99) 94 mg/dL (70-99) Calcium Level 7.7 mg/dL (8.5-10.1) 7.9 mg/dL (8.5-10.1) White Blood Count 8.7 x10^3/uL (4.0-11.0) Red Blood Count 4.03 x10^6/uL (4.30-5.70) Hemoglobin 12.4 g/dL (13.0-17.5) Hematocrit 36.4 % (39.0-53.0) Mean Corpuscular Volume 90 fL (79-100) Mean Corpuscular Hemoglobin 31 pg (25-35) Mean Corpuscular Hemoglobin Concent 34 g/dL (31-37) Red Cell Distribution Width 14.0 % (11.5-14.5) Platelet Count 334 x10^3/uL (140-400) Neutrophils (%) (Auto) 86 % (31-73) Lymphocytes (%) (Auto) 9 % (24-48) Monocytes (%) (Auto) 4 % (0-9) Eosinophils (%) (Auto) 0 % (0-3) Basophils (%) (Auto) 1 % (0-3) Neutrophils # (Auto) 7.5 x10^3/uL (1.8-7.7) Lymphocytes # (Auto) 0.8 x10^3/uL (1.0-4.8) Monocytes # (Auto) 0.4 x10^3/uL (0.0-1.1) Eosinophils # (Auto) 0.0 x10^3/uL (0.0-0.7) Basophils # (Auto) 0.0 x10^3/uL (0.0-0.2) Phosphorus Level 2.1 mg/dL (2.6-4.7) Magnesium Level 2.4 mg/dL (1.8-2.4) Laboratory Tests Test 12/19/19 06:58 White Blood Count 8.7 x10^3/uL (4.0-11.0) Red Blood Count 4.03 x10^6/uL (4.30-5.70) Hemoglobin 12.4 g/dL (13.0-17.5) Hematocrit 36.4 % (39.0-53.0) Mean Corpuscular Volume 90 fL (79-100) Mean Corpuscular Hemoglobin 31 pg (25-35) Mean Corpuscular Hemoglobin Concent 34 g/dL (31-37) Red Cell Distribution Width 14.0 % (11.5-14.5) Platelet Count 334 x10^3/uL (140-400) Neutrophils (%) (Auto) 86 % (31-73) Lymphocytes (%) (Auto) 9 % (24-48) Monocytes (%) (Auto) 4 % (0-9) Eosinophils (%) (Auto) 0 % (0-3) Basophils (%) (Auto) 1 % (0-3) Neutrophils # (Auto) 7.5 x10^3/uL (1.8-7.7) Lymphocytes # (Auto) 0.8 x10^3/uL (1.0-4.8) Monocytes # (Auto) 0.4 x10^3/uL (0.0-1.1) Eosinophils # (Auto) 0.0 x10^3/uL (0.0-0.7) Basophils # (Auto) 0.0 x10^3/uL (0.0-0.2) Sodium Level 140 mmol/L (136-145) Potassium Level 3.7 mmol/L (3.5-5.1) Chloride Level 107 mmol/L (98-107) Carbon Dioxide Level 22 mmol/L (21-32) Anion Gap 11 (6-14) Blood Urea Nitrogen 21 mg/dL (8-26) Creatinine 1.6 mg/dL (0.7-1.3) Estimated GFR (Cockcroft-Gault) 44.0 Glucose Level 94 mg/dL (70-99) Calcium Level 7.9 mg/dL (8.5-10.1) Phosphorus Level 2.1 mg/dL (2.6-4.7) Magnesium Level 2.4 mg/dL (1.8-2.4) Medications Active Scripts Medications Dose Route/Sig Max Daily Dose Days Date Category Proair Hfa Inhaler (Albuterol Sulfate) 8.5 Gm Hfa.aer.ad 2 Puff IH PRN Q4-6HRS PRN 21 12/14/19 Reported Hemmorex-Hc (Hydrocortisone Acetate) 25 Mg Supp.rect 25 Mg RC PRN BID PRN 12/14/19 Reported Fluticasone Propionate Nasal [place] (Fluticasone Propionate) 16 Gm [place].susp 2 [place] NS DAILY 12/14/19 Reported Atorvastatin Calcium 10 Mg Tablet 1 Tab PO DAILY 12/14/19 Reported Sudogest (Pseudoephedrine Hcl) 30 Mg Tablet 30 Mg PO PRN Q6HRS PRN 12/14/19 Reported Loratadine 10 Mg Tablet 1 Tab PO DAILY 12/14/19 Reported Metoprolol Tartrate 50 Mg Tablet 1 Tab PO DAILY 12/14/19 Reported Omeprazole 20 Mg Capsule.dr 1 Cap PO DAILY06 12/14/19 Reported Flomax (Tamsulosin Hcl) 0.4 Mg Cap.er.24h 1 Cap PO DAILY 12/14/19 Reported Losartan-Hctz 50-12.5 Mg Tab (Losartan/Hydrochlorothiazide) 1 Each Tablet 1 Tab PO DAILY 12/14/19 Reported Aspirin Ec (Aspirin) 81 Mg Tablet. 1 Tab PO DAILY 12/14/19 Reported [place] 5-325 Tablet (Acetaminophen/Hydrocodone Bitart) 1 Each Tablet 1 Tab PO BID 3 10/20/17 Rx Impression . IMPRESSION: 1. Acute hypoxemic respiratory failure secondary to COVID-19 3. Fever., Per ID 4. COVID-19 positive. 5. Acute kidney injury. 6. Possible bacterial pneumonia gram-positive, gram-negative Plan . Continue the same see below 1. Titrate the FiO2 to keep O2 saturation 92%. 2. Aggressive DVT prophylaxis. I will change his Pepcid to scheduled for stress ulcer prophylaxis. 3. Continue antibiotic per ID. 4. Continue remdesivir. 5. Status post convalescent plasma. 6. Follow up C. diff PCR. 7. Airborne isolation for COVID. 8. Monitor respiratory status very closely. GEORGIA BAZZI MD Dec 19, 2019 15:18
--- NOTE | 2019-12-19 15:34 | NUR ---
SW following. Spoke with RN and reviewed chart. Discharge plan remains home with and dtr when stable. Pt now on a nonrebreather. Pt on IV Zosyn and IV Zosyn. Pt not ready for discharge. SW to continue following as needed.
--- NOTE | 2019-12-19 16:30 | NUR ---
Patient used bedside commode with no oxygen on & desaturated pretty low. Another RN called this RN in room, this RN placed 6L NC & 15L non rebreather back on patient, his O2 sat was in the 70s. Patient struggling to breathe. Instructed patient to take deep breaths in through the nose & out through the mouth. RT paged. Increased NC to 8L & patient finally popped up into the 80s. It took patient a good 25 min or so to recover & finally get to 90%. Will continue to monitor.
[2019-12-19] MEDS: ZINC SULFATE 220 MG CAPSULE. PO SCH (20:17)
[2019-12-19] MEDS: ONDANSETRON PF 4 MG/2 ML VIAL. IVP PRN (22:16)
[2019-12-20] VITALS (15 sets, daily range): BP systolic 111–176; BP diastolic 49–83
[2019-12-20] MEDS: MORPHINE SULFATE 2 MG/ML VIAL. IV PRN ×3 (00:51→11:08)
[2019-12-20] MEDS: IV NORMAL SALINE 1000ML BAG 1,000 ML IV SCH (01:47)
[2019-12-20] MEDS: ONDANSETRON PF 4 MG/2 ML VIAL. IVP PRN (04:18)
[2019-12-20] MEDS: ACETAMINOPHEN 325 MG TABLET. PO PRN ×2 (05:20→11:07)
[2019-12-20] MEDS: PIPERACILLIN/TAZOBACTAM 3.375 GM in IV NORMAL SALINE 50ML 50 ML IV SCH ×4 (05:21→23:32)
[2019-12-20] MEDS: LACTOBACILLUS RHAMNOSUS GG 1 CAPSULE. PO SCH ×2 (09:59→21:19)
[2019-12-20] MEDS: FAMOTIDINE 20 MG TABLET. PO SCH ×2 (09:59→21:19)
[2019-12-20] MEDS: ENOXAPARIN 40 MG/0.4 ML SYRINGE. SQ SCH ×2 (09:59→21:19)
[2019-12-20] MEDS: ASCORBIC ACID 500 MG TABLET PO SCH (09:59)
[2019-12-20] MEDS: THIAMINE 100 MG TABLET. PO SCH (09:59)
[2019-12-20] MEDS: REMDESIVIR 100mg in NORMAL SALINE 250ML X 4 DAYS IV SCH (10:00)
[2019-12-20] MEDS: POTASSIUM PHOSPHATE,MONOBASIC 500 MG TABLET. PO SCH (10:00)
--- NOTE | 2019-12-20 10:38 | PDOC ---
Infectious Disease Note Subjective: Subjective Patient's respiratory condition deteriorated Awaiting transfer to ICU On 15 L nonrebreather Continues to have low appetite And diarrhea Denies nausea, vomiting, abdominal pain, rash Vital Signs: Vital Signs Vital Signs Date Time Temp Pulse Resp B/P (MAP) Pulse Ox O2 Delivery O2 Flow Rate FiO2 12/20/19 07:47 Non-Rebreather 15.0 12/20/19 07:35 100.0 89 22 116/49 (71) 94 100.0 Physical Exam: PHYSICAL EXAM GENERAL: Patient alert oriented x3 in respiratory distress, HEENT: oral cavity clear NECK: Supple LUNGS: Fine crackles bases HEART: S1, S2, no murmurs ABDOMEN: Soft and nontender mildly distended, bowel sounds present EXTREMITIES: No edema, cyanosis. SKIN: warm to touch NEUROLOGIC: Alert, answers questions appropriately Medications: Inpatient Meds: Current Medications Medications (Trade) Dose Ordered Sig/Pam Start Time Stop Time Status Last Admin Dose Admin Acetaminophen (Tylenol) 650 mg PRN Q6HRS PRN 12/13/19 18:45 12/20/19 05:20 650 MG Amoxicillin (Amoxil) 500 mg [id number] 12/16/19 14:00 12/16/19 11:03 DC Ascorbic Acid (Vitamin C) 500 mg DAILY 12/18/19 14:00 12/20/19 09:59 500 MG Azithromycin 250 ml @ 250 mls/hr 1X ONCE 12/13/19 14:45 12/13/19 15:44 DC 12/13/19 14:45 250 MLS/HR Azithromycin 500 mg/Sodium Chloride 250 ml @ 250 mls/hr Q24H 12/14/19 15:00 12/14/19 11:04 DC Benzonatate (Tessalon Perle) 100 mg PRN Q8HRS PRN 12/15/19 00:15 12/18/19 09:43 100 MG Ceftriaxone Sodium (Rocephin) 1 gm Q24H 12/16/19 17:00 12/18/19 12:38 DC 12/17/19 16:58 1 GM Cyclobenzaprine HCl (Flexeril) 5 mg PRN Q6HRS PRN 12/17/19 23:45 Doxycycline Hyclate (Vibra-Tab) 100 mg BID 12/16/19 11:00 12/16/19 11:03 DC Enoxaparin Sodium (Lovenox 40mg Syringe) 40 mg BID 12/15/19 21:00 12/20/19 09:59 40 MG Enoxaparin Sodium (Lovenox Per Pharmacy Prophylaxis Dosing) 1 each PRN DAILY PRN 12/13/19 18:30 Famotidine (Pepcid) 20 mg BID 12/18/19 09:00 12/20/19 09:59 20 MG Ibuprofen (Motrin) 800 mg 1X ONCE 12/13/19 15:00 12/13/19 15:01 DC 12/13/19 15:23 800 MG Lactobacillus Rhamnosus (Culturelle) 1 cap BID 12/14/19 13:00 12/20/19 09:59 1 CAP Methylprednisolone Sodium Succinate (SOLU-Medrol 125MG VIAL) 125 mg 1X ONCE 12/13/19 15:00 12/13/19 15:01 DC 12/13/19 15:23 125 MG Morphine Sulfate (Morphine Sulfate) 2 mg PRN Q2HR PRN 12/17/19 23:45 12/20/19 04:18 2 MG Non-Formulary Medication 1 ea/ Sodium Chloride 230 ml @ 460 mls/hr Q24H 12/18/19 09:00 12/21/19 09:29 12/20/19 10:00 460 MLS/HR Ondansetron HCl (Zofran) 4 mg PRN Q6HRS PRN 12/17/19 14:15 12/20/19 04:18 4 MG Piperacillin Sod/ Tazobactam Sod 3.375 gm/Sodium Chloride 50 ml @ 100 mls/hr Q6HRS 12/18/19 13:00 12/20/19 05:21 100 MLS/HR Potassium Bicarbonate (Potassium Effervescent Tablet) 40 meq PRN Q4HRS PRN 12/17/19 12:00 Potassium Chloride/Water 100 ml @ 100 mls/hr PRN Q1HR PRN 12/17/19 12:00 Potassium Phosphate (K-Phos Original) 500 mg DAILY 12/19/19 17:00 12/20/19 10:00 500 MG Potassium Chloride (Klor-Con) 40 meq 1X ONCE 12/17/19 12:30 12/17/19 12:31 DC 12/17/19 12:45 40 MEQ Potassium Phos/ Sodium Phos (Phos-Nak) 1 pkt PRN BID PRN 12/17/19 21:00 12/19/19 14:35 1 PKT Sodium Chloride 1,000 ml @ 75 mls/hr [id number] 12/13/19 18:30 12/20/19 01:47 75 MLS/HR Thiamine Mononitrate (Vitamin B-1) 100 mg DAILY 12/18/19 14:00 12/20/19 09:59 100 MG Zinc Sulfate (Orazinc) 220 mg QHS 12/19/19 21:00 12/19/19 20:17 220 MG Objective: Assessment: COVID-19 positive, 12/07. s/p convalescent plasma, 12/15 on remdesivir 12/16 Pulmonary infiltrates from COVID-19. Fever Leukopenia, rule out secondary infection - improved Renal insufficiency, which is unclear whether it is new or old. Hypoxia - now on nonrebreather Diarrhea, C. diff neg 12/15 Plan: Plan of Care Patient been transferred to ICU close monitoring Remdesivir (12/16) Cont Zosyn 12/17, zyvox -was on ceftriaxone was on Azithromycin prior to admit Pulmonary following Steroids per pulmonary Probiotics BC neg so far C diff neg Airborne isolation for COVID D/w nursing MADDISON HOLLEY MD Dec 20, 2019 10:38
[2019-12-20] MEDS ORDERED: methylPREDNISolone SOD SUCC PF 125 MG/2 ML VIAL. IV STA (11:14)
--- NOTE | 2019-12-20 12:16 | PDOC ---
PROGRESS NOTES Chief Complaint Chief Complaint Chest pain and SOB secondary to [id number], + 12/07 Acute Renal Failure secondary to Vasomotor Nephropathy Sepsis Continue oxygen supplementation and nonrebreather as needed to maintain O2 sats greater than 88% - monitor on tele, pulse ox - Rocephin for now per ID - Convalescent IG due to persistent fevers Start Remdesivir -Continue IV fluids for elevated creatinine levels - prn tylenol for fever pain - dvt ppx: lovenox - full code - labs in AM ICU transfer CC time 37 minutes History of Present Illness History of Present Illness Mr Smith is a 64 yo M w/ no PMHx otherwise healthy from [place] drove to [place] to visit her daughter for her Bday. states came to [place] on November 30. reported cough and fever and was diagnosed with covid 19 on december 07 in ED. inst ructed to go home and self quarantine but did not improve. sent home with azithromycin. experienced more chest pain and SOB for past 24 hr along with fever at home so came to ED for further evaluation. her daughter is dx with covid. patient's also has symptoms of covid-19 but had not been tested yet. 12/13: Patient seen and examined bedside today. No acute events overnight. Patient has been remained afebrile and does not require O2 requirements. Saturating 93% on room air 12/14: T-max of 102.4. Patient is oxygenating well as well as 95% on room air. Patient states he feels fine with some cough that is bothering him. He is tolerating diet and ambulating without assistance. 12/15: No acute events overnight. Patient persistently fevers in the 102. P atient has been oxygenating 96% on room air. His cough has improved and he appears comfortable at this time. 12/16: Desaturation episode to 88% that required him to be on 5 L nonrebreather mask. Patient was also continuing to have fevers in the as high as 101.4. Labs and x-ray were drawn at this time 12/17: Fevers of 101.9. Patient is saturating 92% on nonrebreather. Continued IV antibiotics, IV convalescent Ig, and IV Remdesivir. 12/18: Febrile 102.4 F this morning. On 6 L nasal cannula and nonrebreather mask. He states he feels better however he has significant desaturations and continues to remove his oxygen Febrile to 101.7 F today. On 15 L nonrebreather. He is thirsty and has a little bit of an appetite, however he has been coughing after eating and drinking. Worse diarrhea. Plan: Transfer to ICU on vapotherm therapy Vitals Vitals Vital Signs Date Time Temp Pulse Resp B/P (MAP) Pulse Ox O2 Delivery O2 Flow Rate FiO2 12/20/19 11:43 101.7 80 28 176/49 (91) 87 NonRebreather Mask 15.0 101.7 Physical Exam Physical Exam GENERAL: Patient alert oriented x3 in respiratory distress, HEENT: oral cavity clear NECK: Supple LUNGS: Fine crackles bases HEART: S1, S2, no murmurs ABDOMEN: Soft and nontender mildly distended, bowel sounds present EXTREMITIES: No edema, cyanosis. SKIN: warm to touch NEUROLOGIC: Alert, answers questions appropriately Lungs: Crackles Assessment and Plan Assessmemt and Plan Problems Medical Problems: (1) Acute renal failure Status: Acute (2) Pneumonia due to 2019 novel coronavirus Status: Acute Comment Review of Relevant I have reviewed the following items ashwin (where applicable) has been applied. Labs Laboratory Tests Test 12/19/19 06:58 White Blood Count 8.7 x10^3/uL (4.0-11.0) Red Blood Count 4.03 x10^6/uL (4.30-5.70) Hemoglobin 12.4 g/dL (13.0-17.5) Hematocrit 36.4 % (39.0-53.0) Mean Corpuscular Volume 90 fL (79-100) Mean Corpuscular Hemoglobin 31 pg (25-35) Mean Corpuscular Hemoglobin Concent 34 g/dL (31-37) Red Cell Distribution Width 14.0 % (11.5-14.5) Platelet Count 334 x10^3/uL (140-400) Neutrophils (%) (Auto) 86 % (31-73) Lymphocytes (%) (Auto) 9 % (24-48) Monocytes (%) (Auto) 4 % (0-9) Eosinophils (%) (Auto) 0 % (0-3) Basophils (%) (Auto) 1 % (0-3) Neutrophils # (Auto) 7.5 x10^3/uL (1.8-7.7) Lymphocytes # (Auto) 0.8 x10^3/uL (1.0-4.8) Monocytes # (Auto) 0.4 x10^3/uL (0.0-1.1) Eosinophils # (Auto) 0.0 x10^3/uL (0.0-0.7) Basophils # (Auto) 0.0 x10^3/uL (0.0-0.2) Sodium Level 140 mmol/L (136-145) Potassium Level 3.7 mmol/L (3.5-5.1) Chloride Level 107 mmol/L (98-107) Carbon Dioxide Level 22 mmol/L (21-32) Anion Gap 11 (6-14) Blood Urea Nitrogen 21 mg/dL (8-26) Creatinine 1.6 mg/dL (0.7-1.3) Estimated GFR (Cockcroft-Gault) 44.0 Glucose Level 94 mg/dL (70-99) Calcium Level 7.9 mg/dL (8.5-10.1) Phosphorus Level 2.1 mg/dL (2.6-4.7) Magnesium Level 2.4 mg/dL (1.8-2.4) Microbiology 12/13/19 Blood Culture - Final, Complete NO GROWTH AFTER 5 DAYS Medications Current Medications Azithromycin 250 ml @ 250 mls/hr 1X ONCE IV Last administered on 12/13/19at 14:45; Start 12/13/19 at 14:45; Stop 12/13/19 at 15:44; Status DC Methylprednisolone Sodium Succinate (SOLU-Medrol 125MG VIAL) 125 mg 1X ONCE IV Last administered on 12/13/19at 15:23; Start 12/13/19 at 15:00; Stop 12/13/19 at 15:01; Status DC Ibuprofen (Motrin) 800 mg 1X ONCE PO Last administered on 12/13/19at 15:23; Start 12/13/19 at 15:00; Stop 12/13/19 at 15:01; Status DC Sodium Chloride 1,000 ml @ 1,000 mls/hr 1X ONCE IV Last administered on 12/13/19at 15:58; Start 12/13/19 at 16:00; Stop 12/13/19 at 16:59; Status DC Ceftriaxone Sodium (Rocephin) 1 gm 1X ONCE IVP Last administered on 12/13/19at 17:43; Start 12/13/19 at 17:00; Stop 12/13/19 at 17:02; Status DC Ondansetron HCl (Zofran) 4 mg PRN Q8HRS PRN IV NAUSEA/VOMITING; Start 12/13/19 at 17:30; Stop 12/14/19 at 17:29; Status DC Sodium Chloride 1,000 ml @ 100 mls/hr Q10H IV ; Start 12/13/19 at 17:26; Stop 12/13/19 at 22:10; Status DC Enoxaparin Sodium (Lovenox Per Pharmacy Prophylaxis Dosing) 1 each PRN DAILY PRN MC SEE COMMENTS; Start 12/13/19 at 18:30 Ceftriaxone Sodium (Rocephin) 1 gm Q24H IVP Last administered on 12/15/19at 17:10; Start 12/14/19 at 17:00; Stop 12/16/19 at 10:38; Status DC Azithromycin 500 mg/Sodium Chloride 250 ml @ 250 mls/hr Q24H IV ; Start 12/14/19 at 15:00; Stop 12/14/19 at 11:04; Status DC Enoxaparin Sodium (Lovenox 40mg Syringe) 40 mg Q24H SQ Last administered on 12/14/19at 21:49; Start 12/13/19 at 21:00; Stop 12/15/19 at 14:05; Status DC Sodium Chloride 1,000 ml @ 75 mls/hr [id number] IV Last administered on 12/20/19at 01:47; Start 12/13/19 at 18:30 Acetaminophen (Tylenol) 650 mg PRN Q6HRS PRN PO fever Last administered on 12/20/19at 05:20; Start 12/13/19 at 18:45 Potassium Chloride (Klor-Con) 40 meq 1X ONCE PO Last administered on 12/13/19at 20:30; Start 12/13/19 at 19:00; Stop 12/13/19 at 19:01; Status DC Lactobacillus Rhamnosus (Culturelle) 1 cap BID PO Last administered on 12/20/19at 09:59; Start 12/14/19 at 13:00 Benzonatate (Tessalon Perle) 100 mg PRN Q8HRS PRN PO COUGH Last administered on 12/18/19at 09:43; Start 12/15/19 at 00:15 Enoxaparin Sodium (Lovenox 40mg Syringe) 40 mg BID SQ Last administered on 12/20/19at 09:59; Start 12/15/19 at 21:00 Amoxicillin (Amoxil) 500 mg [id number] PO ; Start 12/16/19 at 14:00; Stop 12/16/19 at 11:03; Status DC Doxycycline Hyclate (Vibra-Tab) 100 mg BID PO ; Start 12/16/19 at 11:00; Stop 12/16/19 at 11:03; Status DC Ceftriaxone Sodium (Rocephin) 1 gm Q24H IVP Last administered on 12/17/19at 16:58; Start 12/16/19 at 17:00; Stop 12/18/19 at 12:38; Status DC Famotidine (Pepcid) 20 mg PRN DAILY PRN PO HEARTBURN. Last administered on 12/16/19at 11:35; Start 12/16/19 at 11:30; Stop 12/18/19 at 08:58; Status DC Potassium Chloride (Klor-Con) 40 meq PRN DAILY PRN PO PER PROTOCOL; Start 12/17/19 at 12:00 Potassium Chloride/Water 100 ml @ 100 mls/hr PRN Q1HR PRN IV SEE COMMENTS; Start 12/17/19 at 12:00 Potassium Phos/ Sodium Phos (Phos-Nak) 1 pkt PRN BID PRN PO SEE COMMENTS Last administered on 12/19/19at 14:35; Start 12/17/19 at 21:00 Potassium Bicarbonate (Potassium Effervescent Tablet) 40 meq PRN Q4HRS PRN PO PER PROTOCOL; Start 12/17/19 at 12:00 Potassium Chloride/Water 100 ml @ 100 mls/hr PRN Q1HR PRN IV PER PROTOCOL; Start 12/17/19 at 12:00 Potassium Chloride (Klor-Con) 40 meq 1X ONCE PO Last administered on 12/17/19at 12:45; Start 12/17/19 at 12:30; Stop 12/17/19 at 12:31; Status DC Ondansetron HCl (Zofran) 4 mg PRN Q6HRS PRN IVP NAUSEA/VOMITING Last administered on 12/20/19at 04:18; Start 12/17/19 at 14:15 Non-Formulary Medication 1 ea/ Sodium Chloride 210 ml @ 210 mls/hr 1X ONCE IV Last administered on 12/17/19at 15:45; Start 12/17/19 at 16:00; Stop 12/17/19 at 16:59; Status DC Non-Formulary Medication 1 ea/ Sodium Chloride 230 ml @ 460 mls/hr Q24H IV Last administered on 12/20/19at 10:00; Start 12/18/19 at 09:00; Stop 12/21/19 at 09:29 Morphine Sulfate (Morphine Sulfate) 2 mg PRN Q2HR PRN IV SEVERE PAIN 7- Last administered on 12/20/19at 11:08; Start 12/17/19 at 23:45 Cyclobenzaprine HCl (Flexeril) 5 mg PRN Q6HRS PRN PO MUSCLE SPASMS; Start 12/17/19 at 23:45 Famotidine (Pepcid) 20 mg BID PO Last administered on 12/20/19at 09:59; Start 12/18/19 at 09:00 Piperacillin Sod/ Tazobactam Sod 3.375 gm/Sodium Chloride 50 ml @ 100 mls/hr Q6HRS IV Last administered on 12/20/19at 05:21; Start 12/18/19 at 13:00 Ascorbic Acid (Vitamin C) 500 mg DAILY PO Last administered on 12/20/19at 09:59; Start 12/18/19 at 14:00 Thiamine Mononitrate (Vitamin B-1) 100 mg DAILY PO Last administered on 0at 09:59; Start 12/18/19 at 14:00 Zinc Sulfate (Orazinc) 220 mg QHS PO Last administered on 12/19/19at 20:17; Start 12/19/19 at 21:00 Potassium Phosphate (K-Phos Original) 500 mg DAILY PO ; Start 12/19/19 at 14:15; Stop 12/19/19 at 14:50; Status DC Potassium Phosphate (K-Phos Original) 500 mg DAILY PO Last administered on 12/20/19at 10:00; Start 12/19/19 at 17:00 Methylprednisolone Sodium Succinate (SOLU-Medrol 125MG VIAL) 125 mg 1X STAT IV Last administered on 12/20/19at 11:18; Start 12/20/19 at 11:14; Stop 12/20/19 at 11:16; Status DC Linezolid/Dextrose 300 ml @ 300 mls/hr Q12HR IV ; Start 12/20/19 at 12:30 Active Scripts Active [place] 5-325 Tablet (Acetaminophen/Hydrocodone Bitart) 1 Each Tablet 1 Tab PO BID 3 Days Reported Proair Hfa Inhaler (Albuterol Sulfate) 8.5 Gm Hfa.aer.ad 2 Puff IH PRN Q4-6HRS PRN 21 Days Hemmorex-Hc (Hydrocortisone Acetate) 25 Mg Supp.rect 25 Mg RC PRN BID PRN Fluticasone Propionate Nasal [place] (Fluticasone Propionate) 16 Gm [place].susp 2 [place] NS DAILY Atorvastatin Calcium 10 Mg Tablet 1 Tab PO DAILY Sudogest (Pseudoephedrine Hcl) 30 Mg Tablet 30 Mg PO PRN Q6HRS PRN Loratadine 10 Mg Tablet 1 Tab PO DAILY Metoprolol Tartrate 50 Mg Tablet 1 Tab PO DAILY Omeprazole 20 Mg Capsule.dr 1 Cap PO DAILY06 Flomax (Tamsulosin Hcl) 0.4 Mg Cap.er.24h 1 Cap PO DAILY Losartan-Hctz 50-12.5 Mg Tab (Losartan/Hydrochlorothiazide) 1 Each Tablet 1 Tab PO DAILY Aspirin Ec (Aspirin) 81 Mg Tablet.dr 1 Tab PO DAILY Vitals/I & O Vital Sign - Last 24 Hours 12/19/19 12/19/19 12/19/19 12/19/19 13:52 14:54 19:25 20:00 Temp 99.9 100.1 99.9 100.1 Pulse 70 65 Resp 24 B/P (MAP) 107/61 (76) 112/75 (87) 114/67 (83) Pulse Ox 93 O2 Delivery NonRebreather Mask NonRebreather Mask Non-Rebreather O2 Flow Rate 15.0 15.0 15.0 12/19/19 12/19/19 12/19/19 12/20/19 22:04 22:34 23:20 00:51 Temp 101.9 101.9 Pulse 74 Resp 20 20 28 20 B/P (MAP) 133/63 (86) Pulse Ox 93 93 90 93 O2 Delivery NonRebreather Mask NonRebreather Mask NonRebreather Mask NonRebreather Mask O2 Flow Rate 15.0 15.0 15.0 15.0 12/20/19 12/20/19 12/20/19 12/20/19 01:21 03:25 04:18 04:48 Temp 101.0 101.0 Pulse 78 Resp B/P (MAP) 128/62 (84) Pulse Ox 93 93 93 93 O2 Delivery NonRebreather Mask NonRebreather Mask NonRebreather Mask NonRebreather Mask O2 Flow Rate 15.0 15.0 15.0 15.0 12/20/19 12/20/19 12/20/19 12/20/19 07:35 07:47 11:08 11:43 Temp 100.0 101.7 100.0 101.7 Pulse 89 80 Resp 28 B/P (MAP) 116/49 (71) 176/49 (91) Pulse Ox 94 94 87 O2 Delivery NonRebreather Mask Non-Rebreather NonRebreather Mask O2 Flow Rate 15.0 15.0 15.0 15.0 Intake and Output 12/19/19 12/19/19 12/20/19 15:00 23:00 07:00 Intake Total 100 ml 1050 ml Output Total 500 ml 300 ml Balance -500 ml 100 ml 750 ml Justicifation of Admission Dx: Justifications for Admission: Justification of Admission Dx: Yes Acute Renal Failure: 3-Fold Rise in Serum Crea ASHLEY DE LA CRUZ MD Dec 20, 2019 12:16
[2019-12-20 13:13] LABS: BASE EXCESS ABG -4 mmol/L (-3-3); CORRECTED PCO2 ABG 29 mmHg; CORRECTED PH ABG 7.43; CORRECTED PO2 ABG 68 mmHg; HCO3 ABG 19 mmol/L (21-28); PCO2 ABG 28 mmHg (35-46); PO2 ABG 63 mmHg (65-108); SAT O2 ABG 93 % (92-99)
[2019-12-20 13:16] LABS: FIO2 ABG 100
--- NOTE | 2019-12-20 14:03 | PDOC ---
PULMONARY PROGRESS NOTES Subjective Patient seen earlier this morning, more short of air more oxygen needs Vitals Vital Signs Date Time Temp Pulse Resp B/P (MAP) Pulse Ox O2 Delivery O2 Flow Rate FiO2 12/20/19 13:10 91 VAPOTHERM 40.0 12/20/19 13:00 74 35 119/76 (90) 12/20/19 12:15 100.5 100.5 ROS: No Nausea, No Chest Pain, No Abdominal Pain, No Increase Cough General: Alert Lungs: Crackles Cardiovascular: S1, S2 Abdomen: Soft Neuro Exam: Alert Extremities: No Edema Skin: Warm Labs Laboratory Tests Test 12/19/19 06:58 12/20/19 13:09 White Blood Count 8.7 x10^3/uL (4.0-11.0) Red Blood Count 4.03 x10^6/uL (4.30-5.70) Hemoglobin 12.4 g/dL (13.0-17.5) Hematocrit 36.4 % (39.0-53.0) Mean Corpuscular Volume 90 fL (79-100) Mean Corpuscular Hemoglobin 31 pg (25-35) Mean Corpuscular Hemoglobin Concent 34 g/dL (31-37) Red Cell Distribution Width 14.0 % (11.5-14.5) Platelet Count 334 x10^3/uL (140-400) Neutrophils (%) (Auto) 86 % (31-73) Lymphocytes (%) (Auto) 9 % (24-48) Monocytes (%) (Auto) 4 % (0-9) Eosinophils (%) (Auto) 0 % (0-3) Basophils (%) (Auto) 1 % (0-3) Neutrophils # (Auto) 7.5 x10^3/uL (1.8-7.7) Lymphocytes # (Auto) 0.8 x10^3/uL (1.0-4.8) Monocytes # (Auto) 0.4 x10^3/uL (0.0-1.1) Eosinophils # (Auto) 0.0 x10^3/uL (0.0-0.7) Basophils # (Auto) 0.0 x10^3/uL (0.0-0.2) Sodium Level 140 mmol/L (136-145) Potassium Level 3.7 mmol/L (3.5-5.1) Chloride Level 107 mmol/L (98-107) Carbon Dioxide Level 22 mmol/L (21-32) Anion Gap 11 (6-14) Blood Urea Nitrogen 21 mg/dL (8-26) Creatinine 1.6 mg/dL (0.7-1.3) Estimated GFR (Cockcroft-Gault) 44.0 Glucose Level 94 mg/dL (70-99) Calcium Level 7.9 mg/dL (8.5-10.1) Phosphorus Level 2.1 mg/dL (2.6-4.7) Magnesium Level 2.4 mg/dL (1.8-2.4) O2 Saturation 93 % (92-99) Arterial Blood pH 7.45 (7.35-7.45) Arterial Blood pH (Temp corrected) 7.43 Arterial Blood pCO2 at Patient Temp 28 mmHg (35-46) Arterial Blood pCO2 (Temp correct) 29 mmHg Arterial Blood pO2 at Patient Temp 63 mmHg (65-108) Arterial Blood pO2 (Temp corrected) 68 mmHg Arterial Blood HCO3 19 mmol/L (21-28) Arterial Blood Base Excess -4 mmol/L (-3-3) FiO2 100 Laboratory Tests Test 12/20/19 13:09 O2 Saturation 93 % (92-99) Arterial Blood pH 7.45 (7.35-7.45) Arterial Blood pH (Temp corrected) 7.43 Arterial Blood pCO2 at Patient Temp 28 mmHg (35-46) Arterial Blood pCO2 (Temp correct) 29 mmHg Arterial Blood pO2 at Patient Temp 63 mmHg (65-108) Arterial Blood pO2 (Temp corrected) 68 mmHg Arterial Blood HCO3 19 mmol/L (21-28) Arterial Blood Base Excess -4 mmol/L (-3-3) FiO2 100 Medications Active Scripts Medications Dose Route/Sig Max Daily Dose Days Date Category Proair Hfa Inhaler (Albuterol Sulfate) 8.5 Gm Hfa.aer.ad 2 Puff IH PRN Q4-6HRS PRN 21 12/14/19 Reported Hemmorex-Hc (Hydrocortisone Acetate) 25 Mg Supp.rect 25 Mg RC PRN BID PRN 12/14/19 Reported Fluticasone Propionate Nasal [place] (Fluticasone Propionate) 16 Gm [place].susp 2 [place] NS DAILY 12/14/19 Reported Atorvastatin Calcium 10 Mg Tablet 1 Tab PO DAILY 12/14/19 Reported Sudogest (Pseudoephedrine Hcl) 30 Mg Tablet 30 Mg PO PRN Q6HRS PRN 12/14/19 Reported Loratadine 10 Mg Tablet 1 Tab PO DAILY 12/14/19 Reported Metoprolol Tartrate 50 Mg Tablet 1 Tab PO DAILY 12/14/19 Reported Omeprazole 20 Mg Capsule.dr 1 Cap PO DAILY06 12/14/19 Reported Flomax (Tamsulosin Hcl) 0.4 Mg Cap.er.24h 1 Cap PO DAILY 12/14/19 Reported Losartan-Hctz 50-12.5 Mg Tab (Losartan/Hydrochlorothiazide) 1 Each Tablet 1 Tab PO DAILY 12/14/19 Reported Aspirin Ec (Aspirin) 81 Mg Tablet.dr 1 Tab PO DAILY 12/14/19 Reported [place] 5-325 Tablet (Acetaminophen/Hydrocodone Bitart) 1 Each Tablet 1 Tab PO BID 3 10/20/17 Rx Impression . IMPRESSION: 1. Acute hypoxemic respiratory failure secondary to COVID-19 3. Fever., Per ID 4. COVID-19 positive. 5. Acute kidney injury. 6. Possible bacterial pneumonia gram-positive, gram-negative Plan . Case discussed with RN, and Dr. Tenorio Transfer to the ICU Continue empiric antibiotics Status post convalescent plasma Increase steroids If no improvement may require intubation, will try noninvasive ventilation first GEORGIA BAZZI MD Dec 20, 2019 14:03
[2019-12-20] MEDS: methylPREDNISolone SOD SUCC PF 40 MG/ML VIAL. IV SCH ×2 (14:36→21:18)
--- NOTE | 2019-12-20 17:01 | NUR ---
SW following. Pt from home with dtr and . Pt 02 sats dropped and pt was transferred to ICU.
[2019-12-20 17:05] LABS: D-DIMER 1.94 ug/mlFEU (0.00-0.50)
[2019-12-20] MEDS: STERILE WATER for RESP 1,000 ML BAG. INH PRN ×2 (18:31→19:46)
[2019-12-20] MEDS: ZINC SULFATE 220 MG CAPSULE. PO SCH (21:19)
[2019-12-21] VITALS (25 sets, daily range): BP systolic 115–146; BP diastolic 62–93
[2019-12-21 05:38] LABS: BASO % 0 % (0-3); EOS % 0 % (0-3); HEMATOCRIT 32.5 % (39.0-53.0); HEMOGLOBIN 11.2 g/dL (13.0-17.5); LYMPH # 0.5 x10^3/uL (1.0-4.8); LYMPH % 6 % (24-48); MEAN CORPUSCULAR HEMOGLOBIN 31 pg (25-35); MEAN CORPUSCULAR HGB CONC 35 g/dL (31-37); MEAN CORPUSCULAR VOLUME 90 fL (79-100); MONO # 0.2 x10^3/uL (0.0-1.1); MONO % 2 % (0-9); NEUT # 7.3 x10^3/uL (1.8-7.7); NEUT % 92 % (31-73); PLATELET COUNT 365 x10^3/uL (140-400); RED BLOOD COUNT 3.63 x10^6/uL (4.30-5.70); RED CELL DISTRIBUTION WIDTH 14.9 % (11.5-14.5)
[2019-12-21 05:40] LABS: ALBUMIN 1.7 g/dL (3.4-5.0); ALBUMIN/GLOBULIN RATIO 0.4 (1.0-1.7); CALCIUM 8.1 mg/dL (8.5-10.1); CREATININE 1.5 mg/dL (0.7-1.3); GFR 47.4; POTASSIUM 3.9 mmol/L (3.5-5.1); TOTAL BILIRUBIN 0.5 mg/dL (0.2-1.0); TOTAL PROTEIN 6.1 g/dL (6.4-8.2)
[2019-12-21] MEDS: methylPREDNISolone SOD SUCC PF 40 MG/ML VIAL. IV SCH ×3 (07:02→21:04)
[2019-12-21] MEDS: PIPERACILLIN/TAZOBACTAM 3.375 GM in IV NORMAL SALINE 50ML 50 ML IV SCH ×3 (07:02→17:47)
--- NOTE | 2019-12-21 07:54 | PDOC ---
Infectious Disease Note Subjective: Subjective Patient's respiratory condition deteriorated Transferred to ICU yesterday On Vapotherm Patient feels a little better today Continues to have loose bowel movement Denies fever, nausea, vomiting,abdominal pain, Vital Signs: Vital Signs Vital Signs Date Time Temp Pulse Resp B/P (MAP) Pulse Ox O2 Delivery O2 Flow Rate FiO2 12/21/19 07:00 51 24 139/93 (108) 95 Vapotherm 40.0 12/21/19 04:00 98.1 98.1 Physical Exam: PHYSICAL EXAM GENERAL: Patient alert oriented x3 on Vapotherm eating breakfast appears comfortable HEENT: oral cavity clear NECK: Supple LUNGS: Coarse breath sounds HEART: S1, S2, no murmurs ABDOMEN: Soft and nontender mildly distended, bowel sounds present EXTREMITIES: No edema, cyanosis. SKIN: warm to touch NEUROLOGIC: Alert, answers questions appropriately Medications: Inpatient Meds: Current Medications Medications (Trade) Dose Ordered Sig/Pam Start Time Stop Time Status Last Admin Dose Admin Acetaminophen (Tylenol) 650 mg PRN Q6HRS PRN 12/13/19 18:45 12/20/19 05:20 650 MG Amoxicillin (Amoxil) 500 mg [id number] 12/16/19 14:00 12/16/19 11:03 DC Ascorbic Acid (Vitamin C) 500 mg DAILY 12/18/19 14:00 12/20/19 09:59 500 MG Azithromycin 250 ml @ 250 mls/hr 1X ONCE 12/13/19 14:45 12/13/19 15:44 DC 12/13/19 14:45 250 MLS/HR Azithromycin 500 mg/Sodium Chloride 250 ml @ 250 mls/hr Q24H 12/14/19 15:00 12/14/19 11:04 DC Benzonatate (Tessalon Perle) 100 mg PRN Q8HRS PRN 12/15/19 00:15 12/18/19 09:43 100 MG Ceftriaxone Sodium (Rocephin) 1 gm Q24H 12/16/19 17:00 12/18/19 12:38 DC 12/17/19 16:58 1 GM Cyclobenzaprine HCl (Flexeril) 5 mg PRN Q6HRS PRN 12/17/19 23:45 Doxycycline Hyclate (Vibra-Tab) 100 mg BID 12/16/19 11:00 12/16/19 11:03 DC Enoxaparin Sodium (Lovenox 40mg Syringe) 40 mg BID 12/15/19 21:00 12/20/19 21:19 40 MG Enoxaparin Sodium (Lovenox Per Pharmacy Prophylaxis Dosing) 1 each PRN DAILY PRN 12/13/19 18:30 Famotidine (Pepcid) 20 mg BID 12/18/19 09:00 12/20/19 21:19 20 MG Ibuprofen (Motrin) 800 mg 1X ONCE 12/13/19 15:00 12/13/19 15:01 DC 12/13/19 15:23 800 MG Lactobacillus Rhamnosus (Culturelle) 1 cap BID 12/14/19 13:00 12/20/19 21:19 1 CAP Linezolid/Dextrose 300 ml @ 300 mls/hr Q12HR 12/20/19 12:30 12/20/19 21:18 300 MLS/HR Methylprednisolone Sodium Succinate (SOLU-Medrol 40MG VIAL) 80 mg Q8HRS 12/20/19 15:00 12/21/19 07:02 80 MG Methylprednisolone Sodium Succinate (SOLU-Medrol 125MG VIAL) 125 mg 1X STAT 12/20/19 11:14 12/20/19 11:16 DC 12/20/19 11:18 125 MG Morphine Sulfate (Morphine Sulfate) 2 mg PRN Q2HR PRN 12/17/19 23:45 12/20/19 11:08 2 MG Non-Formulary Medication 1 ea/ Sodium Chloride 230 ml @ 460 mls/hr Q24H 12/18/19 09:00 12/21/19 09:29 12/20/19 10:00 460 MLS/HR Ondansetron HCl (Zofran) 4 mg PRN Q6HRS PRN 12/17/19 14:15 12/20/19 04:18 4 MG Piperacillin Sod/ Tazobactam Sod 3.375 gm/Sodium Chloride 50 ml @ 100 mls/hr Q6HRS 12/18/19 13:00 12/21/19 07:02 100 MLS/HR Potassium Bicarbonate (Potassium Effervescent Tablet) 40 meq PRN Q4HRS PRN 12/17/19 12:00 Potassium Chloride/Water 100 ml @ 100 mls/hr PRN Q1HR PRN 12/17/19 12:00 Potassium Phosphate (K-Phos Original) 500 mg DAILY 12/19/19 17:00 12/20/19 10:00 500 MG Potassium Chloride (Klor-Con) 40 meq 1X ONCE 12/17/19 12:30 12/17/19 12:31 DC 12/17/19 12:45 40 MEQ Potassium Phos/ Sodium Phos (Phos-Nak) 1 pkt PRN BID PRN 12/17/19 21:00 12/19/19 14:35 1 PKT Sodium Chloride 1,000 ml @ 75 mls/hr [id number] 12/13/19 18:30 12/20/19 01:47 75 MLS/HR Sterile Water (WATER for RESP) 1,000 ml CONT PRN 12/20/19 18:30 12/20/19 19:46 1,000 ML Thiamine Mononitrate (Vitamin B-1) 100 mg DAILY 12/18/19 14:00 12/20/19 09:59 100 MG Zinc Sulfate (Orazinc) 220 mg QHS 12/19/19 21:00 12/20/19 21:19 220 MG Labs: Lab Laboratory Tests Test 12/20/19 13:09 12/20/19 16:10 12/21/19 04:50 O2 Saturation 93 % (92-99) Arterial Blood pH 7.45 (7.35-7.45) Arterial Blood pH (Temp corrected) 7.43 Arterial Blood pCO2 at Patient Temp 28 mmHg (35-46) Arterial Blood pCO2 (Temp correct) 29 mmHg Arterial Blood pO2 at Patient Temp 63 mmHg (65-108) Arterial Blood pO2 (Temp corrected) 68 mmHg Arterial Blood HCO3 19 mmol/L (21-28) Arterial Blood Base Excess -4 mmol/L (-3-3) FiO2 100 Fibrinogen 803 mg/dL (200-440) D-Dimer ([place]) 1.94 ug/mlFEU (0.00-0.50) White Blood Count 8.0 x10^3/uL (4.0-11.0) Red Blood Count 3.63 x10^6/uL (4.30-5.70) Hemoglobin 11.2 g/dL (13.0-17.5) Hematocrit 32.5 % (39.0-53.0) Mean Corpuscular Volume 90 fL (79-100) Mean Corpuscular Hemoglobin 31 pg (25-35) Mean Corpuscular Hemoglobin Concent 35 g/dL (31-37) Red Cell Distribution Width 14.9 % (11.5-14.5) Platelet Count 365 x10^3/uL (140-400) Neutrophils (%) (Auto) 92 % (31-73) Lymphocytes (%) (Auto) 6 % (24-48) Monocytes (%) (Auto) 2 % (0-9) Eosinophils (%) (Auto) 0 % (0-3) Basophils (%) (Auto) 0 % (0-3) Neutrophils # (Auto) 7.3 x10^3/uL (1.8-7.7) Lymphocytes # (Auto) 0.5 x10^3/uL (1.0-4.8) Monocytes # (Auto) 0.2 x10^3/uL (0.0-1.1) Eosinophils # (Auto) 0.0 x10^3/uL (0.0-0.7) Basophils # (Auto) 0.0 x10^3/uL (0.0-0.2) Sodium Level 141 mmol/L (136-145) Potassium Level 3.9 mmol/L (3.5-5.1) Chloride Level 108 mmol/L (98-107) Carbon Dioxide Level 23 mmol/L (21-32) Anion Gap 10 (6-14) Blood Urea Nitrogen 23 mg/dL (8-26) Creatinine 1.5 mg/dL (0.7-1.3) Estimated GFR (Cockcroft-Gault) 47.4 BUN/Creatinine Ratio 15 (6-20) Glucose Level 189 mg/dL (70-99) Calcium Level 8.1 mg/dL (8.5-10.1) Total Bilirubin 0.5 mg/dL (0.2-1.0) Aspartate Amino Transf (AST/SGOT) 64 U/L (15-37) Alanine Aminotransferase (ALT/SGPT) 44 U/L (16-63) Alkaline Phosphatase 52 U/L (46-116) Total Protein 6.1 g/dL (6.4-8.2) Albumin 1.7 g/dL (3.4-5.0) Albumin/Globulin Ratio 0.4 (1.0-1.7) Objective: Assessment: COVID-19 positive, 12/07. s/p convalescent plasma, 12/15 on remdesivir 12/16 Pulmonary infiltrates from COVID-19. Fever Leukopenia, rule out secondary infection - improved Renal insufficiency, which is unclear whether it is new or old. Hypoxia - now on nonrebreather Diarrhea, C. diff neg 12/15 Plan: Plan of Care Status post plasma convalescent treatment Remdesivir (12/16) Cont Zosyn 12/17, zyvox Pulmonary following Steroids per pulmonary Probiotics BC neg so far C diff neg Airborne isolation for COVID D/w nursing MADDISON HOLLEY MD Dec 21, 2019 07:54
[2019-12-21] MEDS: MORPHINE SULFATE 2 MG/ML VIAL. IV PRN ×2 (08:15→23:04)
[2019-12-21] MEDS: STERILE WATER for RESP 1,000 ML BAG. INH PRN ×2 (08:57→18:18)
[2019-12-21] MEDS: REMDESIVIR 100mg in NORMAL SALINE 250ML X 4 DAYS IV SCH (09:11)
[2019-12-21] MEDS: ENOXAPARIN 40 MG/0.4 ML SYRINGE. SQ SCH ×2 (09:24→21:04)
[2019-12-21] MEDS: BENZONATATE 100 MG CAPSULE. PO PRN ×2 (09:25→21:04)
[2019-12-21] MEDS: FAMOTIDINE 20 MG TABLET. PO SCH ×2 (09:25→21:04)
[2019-12-21] MEDS: THIAMINE 100 MG TABLET. PO SCH (09:25)
[2019-12-21] MEDS: ASCORBIC ACID 500 MG TABLET PO SCH (09:25)
[2019-12-21] MEDS: POTASSIUM PHOSPHATE,MONOBASIC 500 MG TABLET. PO SCH (09:25)
[2019-12-21] MEDS: LACTOBACILLUS RHAMNOSUS GG 1 CAPSULE. PO SCH ×2 (09:25→21:04)
--- NOTE | 2019-12-21 09:25 | PDOC ---
PULMONARY PROGRESS NOTES Subjective Patient appears to be less dyspneic today on Vapotherm. No productive cough no chest pain no pressure Vitals Vital Signs Date Time Temp Pulse Resp B/P (MAP) Pulse Ox O2 Delivery O2 Flow Rate FiO2 12/21/19 08:15 Nasal Cannula 40.0 12/21/19 08:15 24 95 12/21/19 08:00 98.1 56 146/79 (101) 98.1 ROS: No Nausea, No Chest Pain, No Abdominal Pain, No Increase Cough General: Alert Lungs: Crackles Cardiovascular: S1, S2 Abdomen: Soft Neuro Exam: Alert Extremities: No Edema Skin: Warm Labs Laboratory Tests Test 12/20/19 13:09 12/20/19 16:10 12/21/19 04:50 O2 Saturation 93 % (92-99) Arterial Blood pH 7.45 (7.35-7.45) Arterial Blood pH (Temp corrected) 7.43 Arterial Blood pCO2 at Patient Temp 28 mmHg (35-46) Arterial Blood pCO2 (Temp correct) 29 mmHg Arterial Blood pO2 at Patient Temp 63 mmHg (65-108) Arterial Blood pO2 (Temp corrected) 68 mmHg Arterial Blood HCO3 19 mmol/L (21-28) Arterial Blood Base Excess -4 mmol/L (-3-3) FiO2 100 Fibrinogen 803 mg/dL (200-440) D-Dimer ([place]) 1.94 ug/mlFEU (0.00-0.50) White Blood Count 8.0 x10^3/uL (4.0-11.0) Red Blood Count 3.63 x10^6/uL (4.30-5.70) Hemoglobin 11.2 g/dL (13.0-17.5) Hematocrit 32.5 % (39.0-53.0) Mean Corpuscular Volume 90 fL (79-100) Mean Corpuscular Hemoglobin 31 pg (25-35) Mean Corpuscular Hemoglobin Concent 35 g/dL (31-37) Red Cell Distribution Width 14.9 % (11.5-14.5) Platelet Count 365 x10^3/uL (140-400) Neutrophils (%) (Auto) 92 % (31-73) Lymphocytes (%) (Auto) 6 % (24-48) Monocytes (%) (Auto) 2 % (0-9) Eosinophils (%) (Auto) 0 % (0-3) Basophils (%) (Auto) 0 % (0-3) Neutrophils # (Auto) 7.3 x10^3/uL (1.8-7.7) Lymphocytes # (Auto) 0.5 x10^3/uL (1.0-4.8) Monocytes # (Auto) 0.2 x10^3/uL (0.0-1.1) Eosinophils # (Auto) 0.0 x10^3/uL (0.0-0.7) Basophils # (Auto) 0.0 x10^3/uL (0.0-0.2) Sodium Level 141 mmol/L (136-145) Potassium Level 3.9 mmol/L (3.5-5.1) Chloride Level 108 mmol/L (98-107) Carbon Dioxide Level 23 mmol/L (21-32) Anion Gap 10 (6-14) Blood Urea Nitrogen 23 mg/dL (8-26) Creatinine 1.5 mg/dL (0.7-1.3) Estimated GFR (Cockcroft-Gault) 47.4 BUN/Creatinine Ratio 15 (6-20) Glucose Level 189 mg/dL (70-99) Calcium Level 8.1 mg/dL (8.5-10.1) Total Bilirubin 0.5 mg/dL (0.2-1.0) Aspartate Amino Transf (AST/SGOT) 64 U/L (15-37) Alanine Aminotransferase (ALT/SGPT) 44 U/L (16-63) Alkaline Phosphatase 52 U/L (46-116) Total Protein 6.1 g/dL (6.4-8.2) Albumin 1.7 g/dL (3.4-5.0) Albumin/Globulin Ratio 0.4 (1.0-1.7) Laboratory Tests Test 12/20/19 13:09 12/20/19 16:10 12/21/19 04:50 O2 Saturation 93 % (92-99) Arterial Blood pH 7.45 (7.35-7.45) Arterial Blood pH (Temp corrected) 7.43 Arterial Blood pCO2 at Patient Temp 28 mmHg (35-46) Arterial Blood pCO2 (Temp correct) 29 mmHg Arterial Blood pO2 at Patient Temp 63 mmHg (65-108) Arterial Blood pO2 (Temp corrected) 68 mmHg Arterial Blood HCO3 19 mmol/L (21-28) Arterial Blood Base Excess -4 mmol/L (-3-3) FiO2 100 Fibrinogen 803 mg/dL (200-440) D-Dimer ([place]) 1.94 ug/mlFEU (0.00-0.50) White Blood Count 8.0 x10^3/uL (4.0-11.0) Red Blood Count 3.63 x10^6/uL (4.30-5.70) Hemoglobin 11.2 g/dL (13.0-17.5) Hematocrit 32.5 % (39.0-53.0) Mean Corpuscular Volume 90 fL (79-100) Mean Corpuscular Hemoglobin 31 pg (25-35) Mean Corpuscular Hemoglobin Concent 35 g/dL (31-37) Red Cell Distribution Width 14.9 % (11.5-14.5) Platelet Count 365 x10^3/uL (140-400) Neutrophils (%) (Auto) 92 % (31-73) Lymphocytes (%) (Auto) 6 % (24-48) Monocytes (%) (Auto) 2 % (0-9) Eosinophils (%) (Auto) 0 % (0-3) Basophils (%) (Auto) 0 % (0-3) Neutrophils # (Auto) 7.3 x10^3/uL (1.8-7.7) Lymphocytes # (Auto) 0.5 x10^3/uL (1.0-4.8) Monocytes # (Auto) 0.2 x10^3/uL (0.0-1.1) Eosinophils # (Auto) 0.0 x10^3/uL (0.0-0.7) Basophils # (Auto) 0.0 x10^3/uL (0.0-0.2) Sodium Level 141 mmol/L (136-145) Potassium Level 3.9 mmol/L (3.5-5.1) Chloride Level 108 mmol/L (98-107) Carbon Dioxide Level 23 mmol/L (21-32) Anion Gap 10 (6-14) Blood Urea Nitrogen 23 mg/dL (8-26) Creatinine 1.5 mg/dL (0.7-1.3) Estimated GFR (Cockcroft-Gault) 47.4 BUN/Creatinine Ratio 15 (6-20) Glucose Level 189 mg/dL (70-99) Calcium Level 8.1 mg/dL (8.5-10.1) Total Bilirubin 0.5 mg/dL (0.2-1.0) Aspartate Amino Transf (AST/SGOT) 64 U/L (15-37) Alanine Aminotransferase (ALT/SGPT) 44 U/L (16-63) Alkaline Phosphatase 52 U/L (46-116) Total Protein 6.1 g/dL (6.4-8.2) Albumin 1.7 g/dL (3.4-5.0) Albumin/Globulin Ratio 0.4 (1.0-1.7) Medications Active Scripts Medications Dose Route/Sig Max Daily Dose Days Date Category Proair Hfa Inhaler (Albuterol Sulfate) 8.5 Gm Hfa.aer.ad 2 Puff IH PRN Q4-6HRS PRN 21 12/14/19 Reported Hemmorex-Hc (Hydrocortisone Acetate) 25 Mg Supp.rect 25 Mg RC PRN BID PRN 12/14/19 Reported Fluticasone Propionate Nasal [place] (Fluticasone Propionate) 16 Gm [place].susp 2 [place] NS DAILY 12/14/19 Reported Atorvastatin Calcium 10 Mg Tablet 1 Tab PO DAILY 12/14/19 Reported Sudogest (Pseudoephedrine Hcl) 30 Mg Tablet 30 Mg PO PRN Q6HRS PRN 12/14/19 Reported Loratadine 10 Mg Tablet 1 Tab PO DAILY 12/14/19 Reported Metoprolol Tartrate 50 Mg Tablet 1 Tab PO DAILY 12/14/19 Reported Omeprazole 20 Mg Capsule.dr 1 Cap PO DAILY06 12/14/19 Reported Flomax (Tamsulosin Hcl) 0.4 Mg Cap.er.24h 1 Cap PO DAILY 12/14/19 Reported Losartan-Hctz 50-12.5 Mg Tab (Losartan/Hydrochlorothiazide) 1 Each Tablet 1 Tab PO DAILY 12/14/19 Reported Aspirin Ec (Aspirin) 81 Mg Tablet.dr 1 Tab PO DAILY 12/14/19 Reported [place] 5-325 Tablet (Acetaminophen/Hydrocodone Bitart) 1 Each Tablet 1 Tab PO BID 3 10/20/17 Rx Impression . IMPRESSION: 1. Acute hypoxemic respiratory failure secondary to COVID-19 3. Fever., Per ID 4. COVID-19 positive. 5. Acute kidney injury. 6. Possible bacterial pneumonia gram-positive, gram-negative 7. Elevated d-dimer will monitor for now, Lovenox twice daily, 40 mg Plan . Continue current support with Vapotherm Steroid Follow d-dimer Continue empiric antibiotics Status post convalescent plasma Up to chair, regular diet. Total cumulative critical care time of 30 minutes, reviewing data, chest x-ray, labs, and formulating a plan GEORGIA BAZZI MD Dec 21, 2019 09:25
[2019-12-21 09:32] LABS: BASE EXCESS ABG -4 mmol/L (-3-3); HCO3 ABG 21 mmol/L (21-28); PCO2 ABG 34 mmHg (35-46); PO2 ABG 64 mmHg (65-108); SAT O2 ABG 91 % (92-99)
[2019-12-21 09:35] LABS: FIO2 ABG 100
--- NOTE | 2019-12-21 12:50 | PDOC ---
[employer] PROGRESS NOTE Chief Complaint Chief Complaint Chest pain and SOB secondary to [id number], + 12/07 Acute Renal Failure secondary to Vasomotor Nephropathy Sepsis History of Present Illness History of Present Illness 12/21/2019 Patient seen and examined in the COVID-19 ICU He had to be transferred down to the ICU from the 6 floor due to hypoxia and hypotension Discussed with RN Chart reviewed He is currently on Vapotherm and appears critically ill Mr Smith is a 64 yo M w/ no PMHx otherwise healthy from [place] drove to [place] to visit her daughter for her Bday. states came to [place] on November 30. reported cough and fever and was diagnosed with covid 19 on december 07 in ED. instructed to go home and self quarantine but did not improve. sent home with azithromycin. experienced more chest pain and SOB for past 24 hr along with fever at home so came to ED for further evaluation. her daughter is dx with covid. patient's also has symptoms of covid-19 but had not been tested yet. 12/13: Patient seen and examined bedside today. No acute events overnight. Patient has been remained afebrile and does not require O2 requirements. Saturating 93% on room air 12/14: T-max of 102.4. Patient is oxygenating well as well as 95% on room air. Patient states he feels fine with some cough that is bothering him. He is tolerating diet and ambulating without assistance. 12/15: No acute events overnight. Patient persistently fevers in the 102. Patient has been oxygenating 96% on room air. His cough has improved and he appears comfortable at this time. 12/16: Desaturation episode to 88% that required him to be on 5 L nonrebreather mask. Patient was also continuing to have fevers in the as high as 101.4. Labs and x-ray were drawn at this time 12/17: Fevers of 101.9. Patient is saturating 92% on nonrebreather. Continued IV antibiotics, IV convalescent Ig, and IV Remdesivir. 12/18: Febrile 102.4 F this morning. On 6 L nasal cannula and nonrebreather mask. He states he feels better however he has significant desaturations and continues to remove his oxygen Febrile to 101.7 F today. On 15 L nonrebreather. He is thirsty and has a little bit of an appetite, however he has been coughing after eating and drinking. Worse diarrhea. Plan: Transfer to ICU on vapotherm therapy Vitals/I&O Vitals/I&O: Vital Signs Date Time Temp Pulse Resp B/P (MAP) Pulse Ox O2 Delivery O2 Flow Rate FiO2 12/21/19 12:29 87 VAPOTHERM 40.0 12/21/19 10:00 60 26 139/71 (93) 12/21/19 08:00 98.1 98.1 I & O 12/20/19 12/20/19 12/21/19 15:00 23:00 07:00 Intake Total 100 ml 250 ml 2226 ml Output Total 200 ml 500 ml 250 ml Balance -100 ml -250 ml 1976 ml Physical Exam Physical Exam: GENERAL: On Vapotherm nonverbal currently HEENT: oral cavity clear NECK: Supple LUNGS: Coarse breath sounds HEART: S1, S2, no murmurs ABDOMEN: Soft and nontender mildly distended, bowel sounds present EXTREMITIES: No edema, cyanosis. SKIN: warm to touch General: moderate distress, Other (On Vapotherm) Heart: Other (Tachycardic) Lungs: Crackles Abdomen: No tenderness Extremities: No clubbing Skin: No breakdown Labs Labs: Laboratory Tests Test 12/20/19 13:09 12/20/19 16:10 12/21/19 04:50 12/21/19 09:00 O2 Saturation 93 % (92-99) 91 % (92-99) Arterial Blood pH 7.45 (7.35-7.45) 7.40 (7.35-7.45) Arterial Blood pH (Temp corrected) 7.43 Arterial Blood pCO2 at Patient Temp 28 mmHg (35-46) 34 mmHg (35-46) Arterial Blood pCO2 (Temp correct) 29 mmHg Arterial Blood pO2 at Patient Temp 63 mmHg (65-108) 64 mmHg (65-108) Arterial Blood pO2 (Temp corrected) 68 mmHg Arterial Blood HCO3 19 mmol/L (21-28) 21 mmol/L (21-28) Arterial Blood Base Excess -4 mmol/L (-3-3) -4 mmol/L (-3-3) FiO2 100 100 Fibrinogen 803 mg/dL (200-440) D-Dimer ([place]) 1.94 ug/mlFEU (0.00-0.50) White Blood Count 8.0 x10^3/uL (4.0-11.0) Red Blood Count 3.63 x10^6/uL (4.30-5.70) Hemoglobin 11.2 g/dL (13.0-17.5) Hematocrit 32.5 % (39.0-53.0) Mean Corpuscular Volume 90 fL (79-100) Mean Corpuscular Hemoglobin 31 pg (25-35) Mean Corpuscular Hemoglobin Concent 35 g/dL (31-37) Red Cell Distribution Width 14.9 % (11.5-14.5) Platelet Count 365 x10^3/uL (140-400) Neutrophils (%) (Auto) 92 % (31-73) Lymphocytes (%) (Auto) 6 % (24-48) Monocytes (%) (Auto) 2 % (0-9) Eosinophils (%) (Auto) 0 % (0-3) Basophils (%) (Auto) 0 % (0-3) Neutrophils # (Auto) 7.3 x10^3/uL (1.8-7.7) Lymphocytes # (Auto) 0.5 x10^3/uL (1.0-4.8) Monocytes # (Auto) 0.2 x10^3/uL (0.0-1.1) Eosinophils # (Auto) 0.0 x10^3/uL (0.0-0.7) Basophils # (Auto) 0.0 x10^3/uL (0.0-0.2) Sodium Level 141 mmol/L (136-145) Potassium Level 3.9 mmol/L (3.5-5.1) Chloride Level 108 mmol/L (98-107) Carbon Dioxide Level 23 mmol/L (21-32) Anion Gap 10 (6-14) Blood Urea Nitrogen 23 mg/dL (8-26) Creatinine 1.5 mg/dL (0.7-1.3) Estimated GFR (Cockcroft-Gault) 47.4 BUN/Creatinine Ratio 15 (6-20) Glucose Level 189 mg/dL (70-99) Calcium Level 8.1 mg/dL (8.5-10.1) Total Bilirubin 0.5 mg/dL (0.2-1.0) Aspartate Amino Transf (AST/SGOT) 64 U/L (15-37) Alanine Aminotransferase (ALT/SGPT) 44 U/L (16-63) Alkaline Phosphatase 52 U/L (46-116) Total Protein 6.1 g/dL (6.4-8.2) Albumin 1.7 g/dL (3.4-5.0) Albumin/Globulin Ratio 0.4 (1.0-1.7) Assessment and Plan Assessmemt and Plan Problems Medical Problems: (1) Acute renal failure Status: Acute (2) Pneumonia due to 2019 novel coronavirus Status: Acute COVID-19 pneumonia Severe respiratory failure Hypoxia DILLAN Probable bacterial pneumonia Elevated d-dimer. Plan ICU monitoring IV steroids Continue Vapotherm IV antibiotics Duo nebs Home meds if possible DVT prophylaxis Full code He is extremely ill Appreciate subspecialist input Total time 31-minute Comment Review of Relevant I have reviewed the following items ashwin (where applicable) has been applied. Medications: Current Medications Medications (Trade) Dose Ordered Sig/Pam Route PRN Reason Start Time Stop Time Status Last Admin Dose Admin Methylprednisolone Sodium Succinate (SOLU-Medrol 40MG VIAL) 80 mg Q8HRS IV 12/20/19 15:00 12/21/19 07:02 Sterile Water (WATER for RESP) 1,000 ml CONT PRN INH VIA VAPOTHERM DEVICE 12/20/19 18:30 12/21/19 08:57 Justicifation of Admission Dx: Justifications for Admission: Justification of Admission Dx: Yes Acute Renal Failure: 3-Fold Rise in Serum Crea MARNI JEAN III DO Dec 21, 2019 12:50
[2019-12-21] MEDS: IV NORMAL SALINE 1000ML BAG 1,000 ML IV SCH (15:23)
--- NOTE | 2019-12-21 15:30 | NUR ---
SS following up with discharge planning. SS reviewed pt chart and discussed with pt RN. Pt transferred down from 6S. SS discussed with Fina ANDREWS. Pt is from home with family. Pt is from [place] and was visiting daughter in [place]. COVID19 positive. Pt on Vapotherm. Pt on IV Zosyn, IV Zyvox, and IV steroids. Pt finished last does of Remdesivir today. SS will continue to follow for discharge planning.
[2019-12-21] MEDS: ZINC SULFATE 220 MG CAPSULE. PO SCH (21:00)
[2019-12-22] VITALS (23 sets, daily range): BP systolic 104–139; BP diastolic 52–76
[2019-12-22] MEDS: PIPERACILLIN/TAZOBACTAM 3.375 GM in IV NORMAL SALINE 50ML 50 ML IV SCH ×5 (00:08→23:46)
[2019-12-22] MEDS: STERILE WATER for RESP 1,000 ML BAG. INH PRN (04:07)
[2019-12-22] MEDS: BENZONATATE 100 MG CAPSULE. PO PRN ×3 (04:49→21:31)
[2019-12-22 05:28] LABS: D-DIMER 2.14 ug/mlFEU (0.00-0.50)
[2019-12-22] MEDS: methylPREDNISolone SOD SUCC PF 40 MG/ML VIAL. IV SCH ×3 (05:48→21:34)
[2019-12-22 07:37] LABS: BASO % 0 % (0-3); EOS % 0 % (0-3); HEMATOCRIT 31.6 % (39.0-53.0); HEMOGLOBIN 10.7 g/dL (13.0-17.5); LYMPH # 0.3 x10^3/uL (1.0-4.8); LYMPH % 3 % (24-48); MEAN CORPUSCULAR HEMOGLOBIN 31 pg (25-35); MEAN CORPUSCULAR HGB CONC 34 g/dL (31-37); MEAN CORPUSCULAR VOLUME 90 fL (79-100); MONO # 0.3 x10^3/uL (0.0-1.1); MONO % 2 % (0-9); NEUT # 10.8 x10^3/uL (1.8-7.7); NEUT % 94 % (31-73); PLATELET COUNT 387 x10^3/uL (140-400); RED CELL DISTRIBUTION WIDTH 14.8 % (11.5-14.5); WHITE BLOOD COUNT 11.4 x10^3/uL (4.0-11.0)
--- NOTE | 2019-12-22 07:38 | PDOC ---
Infectious Disease Note Subjective: Subjective Patient feels a little better today Remains on Vapotherm Patient has occasional loose bowel movement Vital Signs: Vital Signs Vital Signs Date Time Temp Pulse Resp B/P (MAP) Pulse Ox O2 Delivery O2 Flow Rate FiO2 12/22/19 06:00 77 26 113/63 (80) 91 Vapotherm 40.0 12/22/19 04:00 98.9 98.9 Physical Exam: PHYSICAL EXAM GENERAL: On Vapotherm nonverbal currently HEENT: oral cavity clear NECK: Supple LUNGS: Coarse breath sounds HEART: S1, S2, no murmurs ABDOMEN: Soft and nontender mildly distended, bowel sounds present EXTREMITIES: No edema, cyanosis. SKIN: warm to touch Medications: Inpatient Meds: Current Medications Medications (Trade) Dose Ordered Sig/Pam Start Time Stop Time Status Last Admin Dose Admin Acetaminophen (Tylenol) 650 mg PRN Q6HRS PRN 12/13/19 18:45 12/20/19 05:20 650 MG Amoxicillin (Amoxil) 500 mg [id number] 12/16/19 14:00 12/16/19 11:03 DC Ascorbic Acid (Vitamin C) 500 mg DAILY 12/18/19 14:00 12/21/19 09:25 500 MG Azithromycin 250 ml @ 250 mls/hr 1X ONCE 12/13/19 14:45 12/13/19 15:44 DC 12/13/19 14:45 250 MLS/HR Azithromycin 500 mg/Sodium Chloride 250 ml @ 250 mls/hr Q24H 12/14/19 15:00 12/14/19 11:04 DC Benzonatate (Tessalon Perle) 100 mg PRN Q8HRS PRN 12/15/19 00:15 12/22/19 04:49 100 MG Ceftriaxone Sodium (Rocephin) 1 gm Q24H 12/16/19 17:00 12/18/19 12:38 DC 12/17/19 16:58 1 GM Cyclobenzaprine HCl (Flexeril) 5 mg PRN Q6HRS PRN 12/17/19 23:45 Doxycycline Hyclate (Vibra-Tab) 100 mg BID 12/16/19 11:00 12/16/19 11:03 DC Enoxaparin Sodium (Lovenox 40mg Syringe) 40 mg BID 12/15/19 21:00 12/21/19 21:04 40 MG Enoxaparin Sodium (Lovenox Per Pharmacy Prophylaxis Dosing) 1 each PRN DAILY PRN 12/13/19 18:30 Famotidine (Pepcid) 20 mg BID 12/18/19 09:00 12/21/19 21:04 20 MG Ibuprofen (Motrin) 800 mg 1X ONCE 12/13/19 15:00 12/13/19 15:01 DC 12/13/19 15:23 800 MG Lactobacillus Rhamnosus (Culturelle) 1 cap BID 12/14/19 13:00 12/21/19 21:04 1 CAP Linezolid/Dextrose 300 ml @ 300 mls/hr Q12HR 12/20/19 12:30 12/21/19 21:03 300 MLS/HR Methylprednisolone Sodium Succinate (SOLU-Medrol 40MG VIAL) 80 mg Q8HRS 12/20/19 15:00 12/22/19 05:48 80 MG Methylprednisolone Sodium Succinate (SOLU-Medrol 125MG VIAL) 125 mg 1X STAT 12/20/19 11:14 12/20/19 11:16 DC 12/20/19 11:18 125 MG Morphine Sulfate (Morphine Sulfate) 2 mg PRN Q2HR PRN 12/17/19 23:45 12/21/19 23:04 2 MG Non-Formulary Medication 1 ea/ Sodium Chloride 230 ml @ 460 mls/hr Q24H 12/18/19 09:00 12/21/19 09:29 DC 12/21/19 09:11 460 MLS/HR Ondansetron HCl (Zofran) 4 mg PRN Q6HRS PRN 12/17/19 14:15 12/20/19 04:18 4 MG Piperacillin Sod/ Tazobactam Sod 3.375 gm/Sodium Chloride 50 ml @ 100 mls/hr Q6HRS 12/18/19 13:00 12/22/19 05:48 100 MLS/HR Potassium Bicarbonate (Potassium Effervescent Tablet) 40 meq PRN Q4HRS PRN 12/17/19 12:00 Potassium Chloride/Water 100 ml @ 100 mls/hr PRN Q1HR PRN 12/17/19 12:00 Potassium Phosphate (K-Phos Original) 500 mg DAILY 12/19/19 17:00 7/22/20 09:25 500 MG Potassium Chloride (Klor-Con) 40 meq 1X ONCE 12/17/19 12:30 12/17/19 12:31 DC 12/17/19 12:45 40 MEQ Potassium Phos/ Sodium Phos (Phos-Nak) 1 pkt PRN BID PRN 12/17/19 21:00 12/19/19 14:35 1 PKT Sodium Chloride 1,000 ml @ 75 mls/hr [id number] 12/13/19 18:30 12/21/19 15:23 75 MLS/HR Sterile Water (WATER for RESP) 1,000 ml CONT PRN 12/20/19 18:30 12/22/19 04:07 1,000 ML Thiamine Mononitrate (Vitamin B-1) 100 mg DAILY 12/18/19 14:00 12/21/19 09:25 100 MG Zinc Sulfate (Orazinc) 220 mg QHS 12/19/19 21:00 12/21/19 21:00 220 MG Labs: Lab Laboratory Tests Test 12/21/19 09:00 12/22/19 05:00 O2 Saturation 91 % (92-99) Arterial Blood pH 7.40 (7.35-7.45) Arterial Blood pCO2 at Patient Temp 34 mmHg (35-46) Arterial Blood pO2 at Patient Temp 64 mmHg (65-108) Arterial Blood HCO3 21 mmol/L (21-28) Arterial Blood Base Excess -4 mmol/L (-3-3) FiO2 100 Fibrinogen 647 mg/dL (200-440) D-Dimer ([place]) 2.14 ug/mlFEU (0.00-0.50) Objective: Assessment: COVID-19 positive, 12/07. s/p convalescent plasma, 12/15 on remdesivir 12/16 Pulmonary infiltrates from COVID-19. Fever Leukopenia, rule out secondary infection - improved Renal insufficiency, which is unclear whether it is new or old. Hypoxia - now on nonrebreather Diarrhea, C. diff neg 12/15 Plan: Plan of Care Cont Zosyn 12/17, zyvox Status post plasma convalescent treatment Remdesivir (12/16) Steroids per pulmonary Probiotics BC neg so far C diff neg Airborne isolation for COVID D/w nursing MADDISON HOLLEY MD Dec 22, 2019 07:38
[2019-12-22 07:50] LABS: CALCIUM 7.7 mg/dL (8.5-10.1); CREATININE 1.5 mg/dL (0.7-1.3); GFR 47.4; POTASSIUM 3.8 mmol/L (3.5-5.1)
[2019-12-22 08:38] LABS: BASE EXCESS ABG -2 mmol/L (-3-3); HCO3 ABG 22 mmol/L (21-28); PCO2 ABG 35 mmHg (35-46); PO2 ABG 67 mmHg (65-108); SAT O2 ABG 92 % (92-99)
[2019-12-22] MEDS: ASCORBIC ACID 500 MG TABLET PO SCH (08:38)
[2019-12-22] MEDS: LACTOBACILLUS RHAMNOSUS GG 1 CAPSULE. PO SCH ×2 (08:38→21:00)
[2019-12-22] MEDS: POTASSIUM PHOSPHATE,MONOBASIC 500 MG TABLET. PO SCH (08:38)
[2019-12-22] MEDS: FAMOTIDINE 20 MG TABLET. PO SCH ×2 (08:38→21:00)
[2019-12-22] MEDS: ENOXAPARIN 40 MG/0.4 ML SYRINGE. SQ SCH ×2 (08:39→21:31)
[2019-12-22] MEDS: IV NORMAL SALINE 1000ML BAG 1,000 ML IV SCH ×2 (08:40→17:56)
[2019-12-22] MEDS: THIAMINE 100 MG TABLET. PO SCH (08:41)
[2019-12-22 08:42] LABS: FIO2 ABG 100% VT
--- NOTE | 2019-12-22 09:19 | PDOC ---
PULMONARY PROGRESS NOTES Subjective Patient feels better, less tachypneic and dyspneic. Now has a Pulido in place, strength is weak. Vitals Vital Signs Date Time Temp Pulse Resp B/P (MAP) Pulse Ox O2 Delivery O2 Flow Rate FiO2 12/22/19 08:45 92 VAPOTHERM 40.0 12/22/19 06:00 77 26 113/63 (80) 12/22/19 04:00 98.9 98.9 ROS: No Nausea, No Chest Pain, No Abdominal Pain, No Increase Cough General: Alert Lungs: Crackles Cardiovascular: S1, S2 Abdomen: Soft Neuro Exam: Alert Extremities: No Edema Skin: Warm Labs Laboratory Tests Test 12/20/19 13:09 12/20/19 16:10 12/21/19 04:50 12/21/19 09:00 O2 Saturation 93 % (92-99) 91 % (92-99) Arterial Blood pH 7.45 (7.35-7.45) 7.40 (7.35-7.45) Arterial Blood pH (Temp corrected) 7.43 Arterial Blood pCO2 at Patient Temp 28 mmHg (35-46) 34 mmHg (35-46) Arterial Blood pCO2 (Temp correct) 29 mmHg Arterial Blood pO2 at Patient Temp 63 mmHg (65-108) 64 mmHg (65-108) Arterial Blood pO2 (Temp corrected) 68 mmHg Arterial Blood HCO3 19 mmol/L (21-28) 21 mmol/L (21-28) Arterial Blood Base Excess -4 mmol/L (-3-3) -4 mmol/L (-3-3) FiO2 100 100 Fibrinogen 803 mg/dL (200-440) D-Dimer ([place]) 1.94 ug/mlFEU (0.00-0.50) White Blood Count 8.0 x10^3/uL (4.0-11.0) Red Blood Count 3.63 x10^6/uL (4.30-5.70) Hemoglobin 11.2 g/dL (13.0-17.5) Hematocrit 32.5 % (39.0-53.0) Mean Corpuscular Volume 90 fL (79-100) Mean Corpuscular Hemoglobin 31 pg (25-35) Mean Corpuscular Hemoglobin Concent 35 g/dL (31-37) Red Cell Distribution Width 14.9 % (11.5-14.5) Platelet Count 365 x10^3/uL (140-400) Neutrophils (%) (Auto) 92 % (31-73) Lymphocytes (%) (Auto) 6 % (24-48) Monocytes (%) (Auto) 2 % (0-9) Eosinophils (%) (Auto) 0 % (0-3) Basophils (%) (Auto) 0 % (0-3) Neutrophils # (Auto) 7.3 x10^3/uL (1.8-7.7) Lymphocytes # (Auto) 0.5 x10^3/uL (1.0-4.8) Monocytes # (Auto) 0.2 x10^3/uL (0.0-1.1) Eosinophils # (Auto) 0.0 x10^3/uL (0.0-0.7) Basophils # (Auto) 0.0 x10^3/uL (0.0-0.2) Sodium Level 141 mmol/L (136-145) Potassium Level 3.9 mmol/L (3.5-5.1) Chloride Level 108 mmol/L (98-107) Carbon Dioxide Level 23 mmol/L (21-32) Anion Gap 10 (6-14) Blood Urea Nitrogen 23 mg/dL (8-26) Creatinine 1.5 mg/dL (0.7-1.3) Estimated GFR (Cockcroft-Gault) 47.4 BUN/Creatinine Ratio 15 (6-20) Glucose Level 189 mg/dL (70-99) Calcium Level 8.1 mg/dL (8.5-10.1) Total Bilirubin 0.5 mg/dL (0.2-1.0) Aspartate Amino Transf (AST/SGOT) 64 U/L (15-37) Alanine Aminotransferase (ALT/SGPT) 44 U/L (16-63) Alkaline Phosphatase 52 U/L (46-116) Total Protein 6.1 g/dL (6.4-8.2) Albumin 1.7 g/dL (3.4-5.0) Albumin/Globulin Ratio 0.4 (1.0-1.7) Test 12/22/19 05:00 12/22/19 08:30 White Blood Count 11.4 x10^3/uL (4.0-11.0) Red Blood Count 3.50 x10^6/uL (4.30-5.70) Hemoglobin 10.7 g/dL (13.0-17.5) Hematocrit 31.6 % (39.0-53.0) Mean Corpuscular Volume 90 fL (79-100) Mean Corpuscular Hemoglobin 31 pg (25-35) Mean Corpuscular Hemoglobin Concent 34 g/dL (31-37) Red Cell Distribution Width 14.8 % (11.5-14.5) Platelet Count 387 x10^3/uL (140-400) Neutrophils (%) (Auto) 94 % (31-73) Lymphocytes (%) (Auto) 3 % (24-48) Monocytes (%) (Auto) 2 % (0-9) Eosinophils (%) (Auto) 0 % (0-3) Basophils (%) (Auto) 0 % (0-3) Neutrophils # (Auto) 10.8 x10^3/uL (1.8-7.7) Lymphocytes # (Auto) 0.3 x10^3/uL (1.0-4.8) Monocytes # (Auto) 0.3 x10^3/uL (0.0-1.1) Eosinophils # (Auto) 0.0 x10^3/uL (0.0-0.7) Basophils # (Auto) 0.0 x10^3/uL (0.0-0.2) Fibrinogen 647 mg/dL (200-440) D-Dimer ([place]) 2.14 ug/mlFEU (0.00-0.50) Sodium Level 144 mmol/L (136-145) Potassium Level 3.8 mmol/L (3.5-5.1) Chloride Level 110 mmol/L (98-107) Carbon Dioxide Level 24 mmol/L (21-32) Anion Gap 10 (6-14) Blood Urea Nitrogen 25 mg/dL (8-26) Creatinine 1.5 mg/dL (0.7-1.3) Estimated GFR (Cockcroft-Gault) 47.4 Glucose Level 175 mg/dL (70-99) Calcium Level 7.7 mg/dL (8.5-10.1) O2 Saturation 92 % (92-99) Arterial Blood pH 7.42 (7.35-7.45) Arterial Blood pCO2 at Patient Temp 35 mmHg (35-46) Arterial Blood pO2 at Patient Temp 67 mmHg (65-108) Arterial Blood HCO3 22 mmol/L (21-28) Arterial Blood Base Excess -2 mmol/L (-3-3) FiO2 100% vt Laboratory Tests Test 12/22/19 05:00 12/22/19 08:30 White Blood Count 11.4 x10^3/uL (4.0-11.0) Red Blood Count 3.50 x10^6/uL (4.30-5.70) Hemoglobin 10.7 g/dL (13.0-17.5) Hematocrit 31.6 % (39.0-53.0) Mean Corpuscular Volume 90 fL (79-100) Mean Corpuscular Hemoglobin 31 pg (25-35) Mean Corpuscular Hemoglobin Concent 34 g/dL (31-37) Red Cell Distribution Width 14.8 % (11.5-14.5) Platelet Count 387 x10^3/uL (140-400) Neutrophils (%) (Auto) 94 % (31-73) Lymphocytes (%) (Auto) 3 % (24-48) Monocytes (%) (Auto) 2 % (0-9) Eosinophils (%) (Auto) 0 % (0-3) Basophils (%) (Auto) 0 % (0-3) Neutrophils # (Auto) 10.8 x10^3/uL (1.8-7.7) Lymphocytes # (Auto) 0.3 x10^3/uL (1.0-4.8) Monocytes # (Auto) 0.3 x10^3/uL (0.0-1.1) Eosinophils # (Auto) 0.0 x10^3/uL (0.0-0.7) Basophils # (Auto) 0.0 x10^3/uL (0.0-0.2) Fibrinogen 647 mg/dL (200-440) D-Dimer ([place]) 2.14 ug/mlFEU (0.00-0.50) Sodium Level 144 mmol/L (136-145) Potassium Level 3.8 mmol/L (3.5-5.1) Chloride Level 110 mmol/L (98-107) Carbon Dioxide Level 24 mmol/L (21-32) Anion Gap 10 (6-14) Blood Urea Nitrogen 25 mg/dL (8-26) Creatinine 1.5 mg/dL (0.7-1.3) Estimated GFR (Cockcroft-Gault) 47.4 Glucose Level 175 mg/dL (70-99) Calcium Level 7.7 mg/dL (8.5-10.1) O2 Saturation 92 % (92-99) Arterial Blood pH 7.42 (7.35-7.45) Arterial Blood pCO2 at Patient Temp 35 mmHg (35-46) Arterial Blood pO2 at Patient Temp 67 mmHg (65-108) Arterial Blood HCO3 22 mmol/L (21-28) Arterial Blood Base Excess -2 mmol/L (-3-3) FiO2 100% vt Medications Active Scripts Medications Dose Route/Sig Max Daily Dose Days Date Category Proair Hfa Inhaler (Albuterol Sulfate) 8.5 Gm Hfa.aer.ad 2 Puff IH PRN Q4-6HRS PRN 21 12/14/19 Reported Hemmorex-Hc (Hydrocortisone Acetate) 25 Mg Supp.rect 25 Mg RC PRN BID PRN 12/14/19 Reported Fluticasone Propionate Nasal [place] (Fluticasone Propionate) 16 Gm [place].susp 2 [place] NS DAILY 12/14/19 Reported Atorvastatin Calcium 10 Mg Tablet 1 Tab PO DAILY 12/14/19 Reported Sudogest (Pseudoephedrine Hcl) 30 Mg Tablet 30 Mg PO PRN Q6HRS PRN 12/14/19 Reported Loratadine 10 Mg Tablet 1 Tab PO DAILY 12/14/19 Reported Metoprolol Tartrate 50 Mg Tablet 1 Tab PO DAILY 12/14/19 Reported Omeprazole 20 Mg Capsule.dr 1 Cap PO DAILY06 12/14/19 Reported Flomax (Tamsulosin Hcl) 0.4 Mg Cap.er.24h 1 Cap PO DAILY 12/14/19 Reported Losartan-Hctz 50-12.5 Mg Tab (Losartan/Hydrochlorothiazide) 1 Each Tablet 1 Tab PO DAILY 12/14/19 Reported Aspirin Ec (Aspirin) 81 Mg Tablet.dr 1 Tab PO DAILY 12/14/19 Reported [place] 5-325 Tablet (Acetaminophen/Hydrocodone Bitart) 1 Each Tablet 1 Tab PO BID 3 10/20/17 Rx Impression . IMPRESSION: 1. Acute hypoxemic respiratory failure secondary to COVID-19 3. Fever. Secondary to COVID-19 4. COVID-19 positive. 5. Acute kidney injury. 6. Possible bacterial pneumonia gram-positive, gram-negative 7. Elevated d-dimer will monitor for now, Lovenox twice daily, 40 mg Plan . Continue support with Vapotherm Steroid Follow d-dimer, noted, patient on Lovenox twice daily Continue empiric antibiotics Status post convalescent plasma Up to chair as tolerated Total cumulative critical care time of 30 minutes, reviewing data, chest x-ray, labs, and formulating a plan GEORGIA BAZZI MD Dec 22, 2019 09:19
[2019-12-22] MEDS ORDERED: LIDOCAINE 2% JELLY 6ML IN APPLICATOR. MM ONE (13:00)
--- NOTE | 2019-12-22 13:17 | PDOC ---
[facility] PROGRESS NOTE Chief Complaint Chief Complaint COVID-19 Respiratory failure Pneumonia Nephropathy Sepsis Chest pain Shortness of breath History of Present Illness History of Present Illness 12/22/2019 Patient seen and examined in the COVID-19 ICU Discussed with RN Chart reviewed He remains on Vapotherm Complains of urinary burning with his Pulido catheter We ordered some lidocaine jelly for the Pulido catheter 12/21/2019 Patient seen and examined in the COVID-19 ICU He had to be transferred down to the ICU from the 6 floor due to hypoxia and hypotension Discussed with RN Chart reviewed He is currently on Vapotherm and appears critically ill Mr Smith is a 64 yo M w/ no PMHx otherwise healthy from [place] drove to [place] to visit her daughter for her Bday. states came to [place] on November 30. rep orted cough and fever and was diagnosed with covid 19 on december 07 in ED. instructed to go home and self quarantine but did not improve. sent home with azithromycin. experienced more chest pain and SOB for past 24 hr along with fever at home so came to ED for further evaluation. her daughter is dx with covid. patient's also has symptoms of covid-19 but had not been tested yet. 12/13: Patient seen and examined bedside today. No acute events overnight. Patient has been remained afebrile and does not require O2 requirements. Saturating 93% on room air 12/14: T-max of 102.4. Patient is oxygenating well as well as 95% on room air. Patient states he feels fine with some cough that is bothering him. He is tolerating diet and ambulating without assistance. 12/15: No acute events overnight. Patient persistently fevers in the 102. Patient has been oxygenating 96% on room air. His cough has improved and he appears comfortable at this time. 12/16: Desaturation episode to 88% that required him to be on 5 L nonrebreather mask. Patient was also continuing to have fevers in the as high as 101.4. Labs and x-ray were drawn at this time 12/17: Fevers of 101.9. Patient is saturating 92% on nonrebreather. Continued IV antibiotics, IV convalescent Ig, and IV Remdesivir. 12/18: Febrile 102.4 F this morning. On 6 L nasal cannula and nonrebreather mask. He states he feels better however he has significant desaturations and continues to remove his oxygen Febrile to 101.7 F today. On 15 L nonrebreather. He is thirsty and has a little bit of an appetite, however he has been coughing after eating and drinking. Worse diarrhea. Plan: Transfer to ICU on vapotherm therapy Vitals/I&O Vitals/I&O: Vital Signs Date Time Temp Pulse Resp B/P (MAP) Pulse Ox O2 Delivery O2 Flow Rate FiO2 12/22/19 12:00 Nasal Cannula 40.0 12/22/19 12:00 98.2 52 38 125/70 (88) 68 98.2 I & O 12/21/19 12/21/19 12/22/19 15:00 23:00 07:00 Intake Total 470 ml 527 ml 1099 ml Output Total 1 ml 1 ml Balance 470 ml 526 ml 1098 ml Physical Exam Physical Exam: GENERAL: On Vapotherm nonverbal currently HEENT: oral cavity clear NECK: Supple LUNGS: Coarse breath sounds HEART: S1, S2, no murmurs ABDOMEN: Soft and nontender mildly distended, bowel sounds present EXTREMITIES: No edema, cyanosis. SKIN: warm to touch General: moderate distress, Other (On Vapotherm) Heart: Other (Tachycardic) Lungs: Crackles Abdomen: No tenderness Extremities: No clubbing Skin: No breakdown Labs Labs: Laboratory Tests Test 12/22/19 05:00 12/22/19 08:30 White Blood Count 11.4 x10^3/uL (4.0-11.0) Red Blood Count 3.50 x10^6/uL (4.30-5.70) Hemoglobin 10.7 g/dL (13.0-17.5) Hematocrit 31.6 % (39.0-53.0) Mean Corpuscular Volume 90 fL (79-100) Mean Corpuscular Hemoglobin 31 pg (25-35) Mean Corpuscular Hemoglobin Concent 34 g/dL (31-37) Red Cell Distribution Width 14.8 % (11.5-14.5) Platelet Count 387 x10^3/uL (140-400) Neutrophils (%) (Auto) 94 % (31-73) Lymphocytes (%) (Auto) 3 % (24-48) Monocytes (%) (Auto) 2 % (0-9) Eosinophils (%) (Auto) 0 % (0-3) Basophils (%) (Auto) 0 % (0-3) Neutrophils # (Auto) 10.8 x10^3/uL (1.8-7.7) Lymphocytes # (Auto) 0.3 x10^3/uL (1.0-4.8) Monocytes # (Auto) 0.3 x10^3/uL (0.0-1.1) Eosinophils # (Auto) 0.0 x10^3/uL (0.0-0.7) Basophils # (Auto) 0.0 x10^3/uL (0.0-0.2) Fibrinogen 647 mg/dL (200-440) D-Dimer ([place]) 2.14 ug/mlFEU (0.00-0.50) Sodium Level 144 mmol/L (136-145) Potassium Level 3.8 mmol/L (3.5-5.1) Chloride Level 110 mmol/L (98-107) Carbon Dioxide Level 24 mmol/L (21-32) Anion Gap 10 (6-14) Blood Urea Nitrogen 25 mg/dL (8-26) Creatinine 1.5 mg/dL (0.7-1.3) Estimated GFR (Cockcroft-Gault) 47.4 Glucose Level 175 mg/dL (70-99) Calcium Level 7.7 mg/dL (8.5-10.1) O2 Saturation 92 % (92-99) Arterial Blood pH 7.42 (7.35-7.45) Arterial Blood pCO2 at Patient Temp 35 mmHg (35-46) Arterial Blood pO2 at Patient Temp 67 mmHg (65-108) Arterial Blood HCO3 22 mmol/L (21-28) Arterial Blood Base Excess -2 mmol/L (-3-3) FiO2 100% vt Review of Systems Review of Systems: Complains of urinary burning Assessment and Plan Assessmemt and Plan Problems Medical Problems: (1) Acute renal failure Status: Acute (2) Pneumonia due to 2019 novel coronavirus Status: Acute COVID-19 pneumonia Severe respiratory failure Hypoxia DILLAN Probable bacterial pneumonia Elevated d-dimer. Dysuria Plan ICU monitoring IV steroids Continue Vapotherm IV antibiotics Duo nebs Home meds if possible DVT prophylaxis Lidocaine jelly to Pulido Full code He is extremely ill Appreciate subspecialist input Total time 32-minute Comment Review of Relevant I have reviewed the following items ashwin (where applicable) has been applied. Justicifation of Admission Dx: Justifications for Admission: Justification of Admission Dx: Yes Acute Renal Failure: 3-Fold Rise in Serum Crea MARNI JEAN III DO Dec 22, 2019 13:17
--- NOTE | 2019-12-22 14:13 | NUR ---
SS following up with discharge planning. SS reviewed pt chart and discussed with pt RN. Pt remains on Vapotherm at this time. COVID19 positive. Pt on IV Zosyn, IV Zyvox, and IV steroids. SS will continue to follow for discharge planning.
[2019-12-22] MEDS: CYCLOBENZAPRINE 10 MG TABLET. PO PRN ×2 (15:49→21:31)
[2019-12-22] MEDS: ZINC SULFATE 220 MG CAPSULE. PO SCH (21:31)
[2019-12-23] VITALS (23 sets, daily range): BP systolic 113–170; BP diastolic 59–86
[2019-12-23] MEDS: MORPHINE SULFATE 2 MG/ML VIAL. IV PRN ×2 (01:10→22:01)
--- NOTE | 2019-12-23 02:46 | NUR ---
At 0245 noted increase in HRT rate of 180, nurse entered room, Vapotherm off and 2 leads off as well as O2 sat probe. reapplied. Asked what has happened, He states he had a very bad dream. 5 mins later HRT rate 66.
[2019-12-23] MEDS: IV NORMAL SALINE 1000ML BAG 1,000 ML IV SCH ×2 (02:52→14:54)
[2019-12-23] MEDS: methylPREDNISolone SOD SUCC PF 40 MG/ML VIAL. IV SCH ×3 (05:48→22:01)
[2019-12-23] MEDS: PIPERACILLIN/TAZOBACTAM 3.375 GM in IV NORMAL SALINE 50ML 50 ML IV SCH ×3 (05:48→18:16)
[2019-12-23 08:15] LABS: HEMATOCRIT 30.3 % (39.0-53.0); HEMOGLOBIN 10.6 g/dL (13.0-17.5); RED BLOOD COUNT 3.37 x10^6/uL (4.30-5.70); WHITE BLOOD COUNT 12.7 x10^3/uL (4.0-11.0)
[2019-12-23 08:26] LABS: CALCIUM 7.6 mg/dL (8.5-10.1); CREATININE 1.7 mg/dL (0.7-1.3); POTASSIUM 3.8 mmol/L (3.5-5.1)
[2019-12-23 08:36] LABS: BASE EXCESS ABG 1 mmol/L (-3-3); HCO3 ABG 22 mmol/L (21-28); PCO2 ABG 29 mmHg (35-46); PO2 ABG 151 mmHg (65-108)
[2019-12-23 08:45] LABS: FIO2 ABG 100%
--- NOTE | 2019-12-23 08:45 | PDOC ---
Infectious Disease Note Subjective: Subjective Patient feels the same Remains on Vapotherm Vital Signs: Vital Signs Vital Signs Date Time Temp Pulse Resp B/P (MAP) Pulse Ox O2 Delivery O2 Flow Rate FiO2 12/23/19 07:55 93 VAPOTHERM 40.0 12/23/19 07:00 60 30 121/72 (88) 12/23/19 03:00 98.9 98.9 Physical Exam: PHYSICAL EXAM GENERAL: On Vapotherm nonverbal currently HEENT: oral cavity clear NECK: Supple LUNGS: Coarse breath sounds HEART: S1, S2, no murmurs ABDOMEN: Soft and nontender mildly distended, bowel sounds present EXTREMITIES: No edema, cyanosis. SKIN: warm to touch Medications: Inpatient Meds: Current Medications Medications (Trade) Dose Ordered Sig/Pam Start Time Stop Time Status Last Admin Dose Admin Acetaminophen (Tylenol) 650 mg PRN Q6HRS PRN 12/13/19 18:45 12/20/19 05:20 650 MG Amoxicillin (Amoxil) 500 mg [id number] 12/16/19 14:00 12/16/19 11:03 DC Ascorbic Acid (Vitamin C) 500 mg DAILY 12/18/19 14:00 12/22/19 08:38 500 MG Azithromycin 250 ml @ 250 mls/hr 1X ONCE 12/13/19 14:45 12/13/19 15:44 DC 12/13/19 14:45 250 MLS/HR Azithromycin 500 mg/Sodium Chloride 250 ml @ 250 mls/hr Q24H 12/14/19 15:00 12/14/19 11:04 DC Benzonatate (Tessalon Perle) 100 mg PRN Q8HRS PRN 12/15/19 00:15 12/22/19 21:31 100 MG Ceftriaxone Sodium (Rocephin) 1 gm Q24H 12/16/19 17:00 12/18/19 12:38 DC 12/17/19 16:58 1 GM Cyclobenzaprine HCl (Flexeril) 5 mg PRN Q6HRS PRN 12/17/19 23:45 12/22/19 21:31 5 MG Doxycycline Hyclate (Vibra-Tab) 100 mg BID 12/16/19 11:00 12/16/19 11:03 DC Enoxaparin Sodium (Lovenox 40mg Syringe) 40 mg BID 12/15/19 21:00 12/22/19 21:31 40 MG Enoxaparin Sodium (Lovenox Per Pharmacy Prophylaxis Dosing) 1 each PRN DAILY PRN 12/13/19 18:30 Famotidine (Pepcid) 20 mg BID 12/18/19 09:00 12/22/19 21:00 20 MG Ibuprofen (Motrin) 800 mg 1X ONCE 12/13/19 15:00 12/13/19 15:01 DC 12/13/19 15:23 800 MG Lactobacillus Rhamnosus (Culturelle) 1 cap BID 12/14/19 13:00 12/22/19 21:00 1 CAP Lidocaine HCl (Glydo (Lidocaine) Jelly) 1 saurabh 1X ONCE 12/22/19 13:00 12/22/19 13:01 DC 12/22/19 13:00 1 SAURABH Linezolid/Dextrose 300 ml @ 300 mls/hr Q12HR 12/20/19 12:30 12/22/19 21:33 300 MLS/HR Methylprednisolone Sodium Succinate (SOLU-Medrol 40MG VIAL) 80 mg Q8HRS 12/20/19 15:00 12/23/19 05:48 80 MG Methylprednisolone Sodium Succinate (SOLU-Medrol 125MG VIAL) 125 mg 1X STAT 12/20/19 11:14 12/20/19 11:16 DC 12/20/19 11:18 125 MG Morphine Sulfate (Morphine Sulfate) 2 mg PRN Q2HR PRN 12/17/19 23:45 12/23/19 01:10 2 MG Non-Formulary Medication 1 ea/ Sodium Chloride 230 ml @ 460 mls/hr Q24H 12/18/19 09:00 12/21/19 09:29 DC 12/21/19 09:11 460 MLS/HR Ondansetron HCl (Zofran) 4 mg PRN Q6HRS PRN 12/17/19 14:15 12/20/19 04:18 4 MG Piperacillin Sod/ Tazobactam Sod 3.375 gm/Sodium Chloride 50 ml @ 100 mls/hr Q6HRS 12/18/19 13:00 12/23/19 05:48 100 MLS/HR Potassium Bicarbonate (Potassium Effervescent Tablet) 40 meq PRN Q4HRS PRN 12/17/19 12:00 Potassium Chloride/Water 100 ml @ 100 mls/hr PRN Q1HR PRN 12/17/19 12:00 Potassium Phosphate (K-Phos Original) 500 mg DAILY 12/19/19 17:00 12/22/19 08:38 500 MG Potassium Chloride (Klor-Con) 40 meq 1X ONCE 12/17/19 12:30 12/17/19 12:31 DC 12/17/19 12:45 40 MEQ Potassium Phos/ Sodium Phos (Phos-Nak) 1 pkt PRN BID PRN 12/17/19 21:00 12/19/19 14:35 1 PKT Sodium Chloride 1,000 ml @ 75 mls/hr [id number] 12/13/19 18:30 12/23/19 02:52 75 MLS/HR Sterile Water (WATER for RESP) 1,000 ml CONT PRN 12/20/19 18:30 12/22/19 04:07 1,000 ML Thiamine Mononitrate (Vitamin B-1) 100 mg DAILY 12/18/19 14:00 12/22/19 08:41 100 MG Zinc Sulfate (Orazinc) 220 mg QHS 12/19/19 21:00 12/22/19 21:31 220 MG Labs: Lab Laboratory Tests Test 12/23/19 07:50 White Blood Count 12.7 x10^3/uL (4.0-11.0) Red Blood Count 3.37 x10^6/uL (4.30-5.70) Hemoglobin 10.6 g/dL (13.0-17.5) Hematocrit 30.3 % (39.0-53.0) Mean Corpuscular Volume 90 fL (79-100) Mean Corpuscular Hemoglobin 32 pg (25-35) Mean Corpuscular Hemoglobin Concent 35 g/dL (31-37) Red Cell Distribution Width 15.0 % (11.5-14.5) Platelet Count 239 x10^3/uL (140-400) Sodium Level 146 mmol/L (136-145) Potassium Level 3.8 mmol/L (3.5-5.1) Chloride Level 112 mmol/L (98-107) Carbon Dioxide Level 25 mmol/L (21-32) Anion Gap 9 (6-14) Blood Urea Nitrogen 35 mg/dL (8-26) Creatinine 1.7 mg/dL (0.7-1.3) Estimated GFR (Cockcroft-Gault) 41.0 Glucose Level 181 mg/dL (70-99) Calcium Level 7.6 mg/dL (8.5-10.1) Objective: Assessment: COVID-19 positive, 12/07. s/p convalescent plasma, 12/15 on remdesivir 12/16 Pulmonary infiltrates from COVID-19. Fever Leukopenia, rule out secondary infection - improved Renal insufficiency, which is unclear whether it is new or old. Hypoxia - now on nonrebreather Diarrhea, C. diff neg 12/15 Plan: Plan of Care Cont Zosyn DC Zyvox Status post plasma convalescent treatment Status post Remdesivir (12/16) Steroids per pulmonary Probiotics BC neg so far C diff neg Airborne isolation for COVID D/w nursing MADDISON HOLLEY MD Dec 23, 2019 08:45
--- NOTE | 2019-12-23 09:20 | PDOC ---
PROGRESS NOTES Chief Complaint Chief Complaint IMPRESSION COVID-19 Respiratory failure Pneumonia Nephropathy Sepsis Chest pain Shortness of breath DILLAN SEVERE protein-caloric malnutrition Cont Zosyn DC Zyvox Status post plasma convalescent treatment Status post Remdesivir (12/16) CONSULT NEPHROLOGY History of Present Illness History of Present Illness 12/23/2019 Patient seen and examined in the COVID-19 ICU Discussed with RN Chart reviewed He remains on Vapotherm Complains of urinary burning with his Pulido catheter lidocaine jelly for the Pulido catheter 36 MIN CC TIME Mr Smith is a 64 yo M w/ no PMHx otherwise healthy from [place] drove to [place] to visit her daughter for her Bday. states came to [place] on November 30. reported cough and fever and was diagnosed with covid 19 on december 07 in ED. instructed to go home and self quarantine but did not improve. sent home with azithromycin. experienced more chest pain and SOB for past 24 hr along with fever at home so came to ED for further evaluation. her daughter is dx with covid. patient's also has symptoms of covid-19 but had not been tested yet. 12/13: Patient seen and examined bedside today. No acute events overnight. Patient has been remained afebrile and does not require O2 requirements. Saturating 93% on room air 12/14: T-max of 102.4. Patient is oxygenating well as well as 95% on room air. Patient states he feels fine with some cough that is bothering him. He is tolerating diet and ambulating without assistance. 12/15: No acute events overnight. Patient persistently fevers in the 102. Patient has been oxygenating 96% on room air. His cough has improved and he appears comfortable at this time. 12/16: Desaturation episode to 88% that required him to be on 5 L nonrebreather mask. Patient was also continuing to have fevers in the as high as 101.4. Labs and x-ray were drawn at this time 12/17: Fevers of 101.9. Patient is saturating 92% on nonrebreather. Continued IV antibiotics, IV convalescent Ig, and IV Remdesivir. 12/18: Febrile 102.4 F this morning. On 6 L nasal cannula and nonrebreather mask. He states he feels better however he has significant desaturations and continues to remove his oxygen Febrile to 101.7 F today. On 15 L nonrebreather. He is thirsty and has a little bit of an appetite, however he has been coughing after eating and drinking. Worse diarrhea. Plan: Transfer to ICU on vapotherm therapy Vitals Vitals Vital Signs Date Time Temp Pulse Resp B/P (MAP) Pulse Ox O2 Delivery O2 Flow Rate FiO2 12/23/19 07:55 93 VAPOTHERM 40.0 12/23/19 07:00 60 30 121/72 (88) 12/23/19 03:00 98.9 98.9 Physical Exam Physical Exam GENERAL: On Vapotherm nonverbal currently HEENT: oral cavity clear NECK: Supple LUNGS: Coarse breath sounds HEART: S1, S2, no murmurs ABDOMEN: Soft and nontender mildly distended, bowel sounds present EXTREMITIES: No edema, cyanosis. SKIN: warm to touch General: moderate distress, Other (On Vapotherm) Heart: Other (Tachycardic) Lungs: Crackles Abdomen: No tenderness Extremities: No clubbing Skin: No breakdown Labs LABS Laboratory Tests Test 12/23/19 07:50 12/23/19 08:10 White Blood Count 12.7 x10^3/uL (4.0-11.0) Red Blood Count 3.37 x10^6/uL (4.30-5.70) Hemoglobin 10.6 g/dL (13.0-17.5) Hematocrit 30.3 % (39.0-53.0) Mean Corpuscular Volume 90 fL (79-100) Mean Corpuscular Hemoglobin 32 pg (25-35) Mean Corpuscular Hemoglobin Concent 35 g/dL (31-37) Red Cell Distribution Width 15.0 % (11.5-14.5) Platelet Count 239 x10^3/uL (140-400) Sodium Level 146 mmol/L (136-145) Potassium Level 3.8 mmol/L (3.5-5.1) Chloride Level 112 mmol/L (98-107) Carbon Dioxide Level 25 mmol/L (21-32) Anion Gap 9 (6-14) Blood Urea Nitrogen 35 mg/dL (8-26) Creatinine 1.7 mg/dL (0.7-1.3) Estimated GFR (Cockcroft-Gault) 41.0 Glucose Level 181 mg/dL (70-99) Calcium Level 7.6 mg/dL (8.5-10.1) Arterial Blood pH 7.51 (7.35-7.45) Arterial Blood pCO2 at Patient Temp 29 mmHg (35-46) Arterial Blood pO2 at Patient Temp 151 mmHg (65-108) Arterial Blood HCO3 22 mmol/L (21-28) Arterial Blood Base Excess 1 mmol/L (-3-3) FiO2 100% Assessment and Plan Assessmemt and Plan Problems Medical Problems: (1) Acute renal failure Status: Acute (2) Pneumonia due to 2019 novel coronavirus Status: Acute Comment Review of Relevant I have reviewed the following items ashwin (where applicable) has been applied. Labs Laboratory Tests Test 12/22/19 05:00 12/22/19 08:30 12/23/19 07:50 12/23/19 08:10 White Blood Count 11.4 x10^3/uL (4.0-11.0) 12.7 x10^3/uL (4.0-11.0) Red Blood Count 3.50 x10^6/uL (4.30-5.70) 3.37 x10^6/uL (4.30-5.70) Hemoglobin 10.7 g/dL (13.0-17.5) 10.6 g/dL (13.0-17.5) Hematocrit 31.6 % (39.0-53.0) 30.3 % (39.0-53.0) Mean Corpuscular Volume 90 fL (79-100) 90 fL (79-100) Mean Corpuscular Hemoglobin 31 pg (25-35) 32 pg (25-35) Mean Corpuscular Hemoglobin Concent 34 g/dL (31-37) 35 g/dL (31-37) Red Cell Distribution Width 14.8 % (11.5-14.5) 15.0 % (11.5-14.5) Platelet Count 387 x10^3/uL (140-400) 239 x10^3/uL (140-400) Neutrophils (%) (Auto) 94 % (31-73) Lymphocytes (%) (Auto) 3 % (24-48) Monocytes (%) (Auto) 2 % (0-9) Eosinophils (%) (Auto) 0 % (0-3) Basophils (%) (Auto) 0 % (0-3) Neutrophils # (Auto) 10.8 x10^3/uL (1.8-7.7) Lymphocytes # (Auto) 0.3 x10^3/uL (1.0-4.8) Monocytes # (Auto) 0.3 x10^3/uL (0.0-1.1) Eosinophils # (Auto) 0.0 x10^3/uL (0.0-0.7) Basophils # (Auto) 0.0 x10^3/uL (0.0-0.2) Fibrinogen 647 mg/dL (200-440) D-Dimer ([place]) 2.14 ug/mlFEU (0.00-0.50) Sodium Level 144 mmol/L (136-145) 146 mmol/L (136-145) Potassium Level 3.8 mmol/L (3.5-5.1) 3.8 mmol/L (3.5-5.1) Chloride Level 110 mmol/L (98-107) 112 mmol/L (98-107) Carbon Dioxide Level 24 mmol/L (21-32) 25 mmol/L (21-32) Anion Gap 10 (6-14) 9 (6-14) Blood Urea Nitrogen 25 mg/dL (8-26) 35 mg/dL (8-26) Creatinine 1.5 mg/dL (0.7-1.3) 1.7 mg/dL (0.7-1.3) Estimated GFR (Cockcroft-Gault) 47.4 41.0 Glucose Level 175 mg/dL (70-99) 181 mg/dL (70-99) Calcium Level 7.7 mg/dL (8.5-10.1) 7.6 mg/dL (8.5-10.1) O2 Saturation 92 % (92-99) Arterial Blood pH 7.42 (7.35-7.45) 7.51 (7.35-7.45) Arterial Blood pCO2 at Patient Temp 35 mmHg (35-46) 29 mmHg (35-46) Arterial Blood pO2 at Patient Temp 67 mmHg (65-108) 151 mmHg (65-108) Arterial Blood HCO3 22 mmol/L (21-28) 22 mmol/L (21-28) Arterial Blood Base Excess -2 mmol/L (-3-3) 1 mmol/L (-3-3) FiO2 100% vt 100% Laboratory Tests Test 12/23/19 07:50 12/23/19 08:10 White Blood Count 12.7 x10^3/uL (4.0-11.0) Red Blood Count 3.37 x10^6/uL (4.30-5.70) Hemoglobin 10.6 g/dL (13.0-17.5) Hematocrit 30.3 % (39.0-53.0) Mean Corpuscular Volume 90 fL (79-100) Mean Corpuscular Hemoglobin 32 pg (25-35) Mean Corpuscular Hemoglobin Concent 35 g/dL (31-37) Red Cell Distribution Width 15.0 % (11.5-14.5) Platelet Count 239 x10^3/uL (140-400) Sodium Level 146 mmol/L (136-145) Potassium Level 3.8 mmol/L (3.5-5.1) Chloride Level 112 mmol/L (98-107) Carbon Dioxide Level 25 mmol/L (21-32) Anion Gap 9 (6-14) Blood Urea Nitrogen 35 mg/dL (8-26) Creatinine 1.7 mg/dL (0.7-1.3) Estimated GFR (Cockcroft-Gault) 41.0 Glucose Level 181 mg/dL (70-99) Calcium Level 7.6 mg/dL (8.5-10.1) Arterial Blood pH 7.51 (7.35-7.45) Arterial Blood pCO2 at Patient Temp 29 mmHg (35-46) Arterial Blood pO2 at Patient Temp 151 mmHg (65-108) Arterial Blood HCO3 22 mmol/L (21-28) Arterial Blood Base Excess 1 mmol/L (-3-3) FiO2 100% Microbiology 12/13/19 Blood Culture - Final, Complete NO GROWTH AFTER 5 DAYS Medications Current Medications Azithromycin 250 ml @ 250 mls/hr 1X ONCE IV Last administered on 12/13/19at 14:45; Start 12/13/19 at 14:45; Stop 12/13/19 at 15:44; Status DC Methylprednisolone Sodium Succinate (SOLU-Medrol 125MG VIAL) 125 mg 1X ONCE IV Last administered on 12/13/19at 15:23; Start 12/13/19 at 15:00; Stop 12/13/19 at 15:01; Status DC Ibuprofen (Motrin) 800 mg 1X ONCE PO Last administered on 12/13/19at 15:23; Start 12/13/19 at 15:00; Stop 12/13/19 at 15:01; Status DC Sodium Chloride 1,000 ml @ 1,000 mls/hr 1X ONCE IV Last administered on 12/13/19at 15:58; Start 12/13/19 at 16:00; Stop 12/13/19 at 16:59; Status DC Ceftriaxone Sodium (Rocephin) 1 gm 1X ONCE IVP Last administered on 12/13/19at 17:43; Start 12/13/19 at 17:00; Stop 12/13/19 at 17:02; Status DC Ondansetron HCl (Zofran) 4 mg PRN Q8HRS PRN IV NAUSEA/VOMITING; Start 12/13/19 at 17:30; Stop 12/14/19 at 17:29; Status DC Sodium Chloride 1,000 ml @ 100 mls/hr Q10H IV ; Start 12/13/19 at 17:26; Stop 12/13/19 at 22:10; Status DC Enoxaparin Sodium (Lovenox Per Pharmacy Prophylaxis Dosing) 1 each PRN DAILY PRN MC SEE COMMENTS; Start 12/13/19 at 18:30 Ceftriaxone Sodium (Rocephin) 1 gm Q24H IVP Last administered on 12/15/19at 17: 10; Start 12/14/19 at 17:00; Stop 12/16/19 at 10:38; Status DC Azithromycin 500 mg/Sodium Chloride 250 ml @ 250 mls/hr Q24H IV ; Start 12/14/19 at 15:00; Stop 12/14/19 at 11:04; Status DC Enoxaparin Sodium (Lovenox 40mg Syringe) 40 mg Q24H SQ Last administered on 12/14/19at 21:49; Start 12/13/19 at 21:00; Stop 12/15/19 at 14:05; Status DC Sodium Chloride 1,000 ml @ 75 mls/hr [id number] IV Last administered on 12/23/19at 02:52; Start 12/13/19 at 18:30 Acetaminophen (Tylenol) 650 mg PRN Q6HRS PRN PO fever Last administered on 12/20/19at 05:20; Start 12/13/19 at 18:45 Potassium Chloride (Klor-Con) 40 meq 1X ONCE PO Last administered on 12/13/19at 20:30; Start 12/13/19 at 19:00; Stop 12/13/19 at 19:01; Status DC Lactobacillus Rhamnosus (Culturelle) 1 cap BID PO Last administered on 12/22/19at 21:00; Start 12/14/19 at 13:00 Benzonatate (Tessalon Perle) 100 mg PRN Q8HRS PRN PO COUGH Last administered on 12/22/19at 21:31; Start 12/15/19 at 00:15 Enoxaparin Sodium (Lovenox 40mg Syringe) 40 mg BID SQ Last administered on 12/22/19at 21:31; Start 12/15/19 at 21:00 Amoxicillin (Amoxil) 500 mg [id number] PO ; Start 12/16/19 at 14:00; Stop 12/16/19 at 11:03; Status DC Doxycycline Hyclate (Vibra-Tab) 100 mg BID PO ; Start 12/16/19 at 11:00; Stop 12/16/19 at 11:03; Status DC Ceftriaxone Sodium (Rocephin) 1 gm Q24H IVP Last administered on 12/17/19at 16:58; Start 12/16/19 at 17:00; Stop 12/18/19 at 12:38; Status DC Famotidine (Pepcid) 20 mg PRN DAILY PRN PO HEARTBURN. Last administered on 12/16/19at 11:35; Start 12/16/19 at 11:30; Stop 12/18/19 at 08:58; Status DC Potassium Chloride (Klor-Con) 40 meq PRN DAILY PRN PO PER PROTOCOL; Start 12/17/19 at 12:00 Potassium Chloride/Water 100 ml @ 100 mls/hr PRN Q1HR PRN IV SEE COMMENTS; Start 12/17/19 at 12:00 Potassium Phos/ Sodium Phos (Phos-Nak) 1 pkt PRN BID PRN PO SEE COMMENTS Last administered on 12/19/19at 14:35; Start 12/17/19 at 21:00 Potassium Bicarbonate (Potassium Effervescent Tablet) 40 meq PRN Q4HRS PRN PO PER PROTOCOL; Start 12/17/19 at 12:00 Potassium Chloride/Water 100 ml @ 100 mls/hr PRN Q1HR PRN IV PER PROTOCOL; Start 12/17/19 at 12:00 Potassium Chloride (Klor-Con) 40 meq 1X ONCE PO Last administered on 12/17/19at 12:45; Start 12/17/19 at 12:30; Stop 12/17/19 at 12:31; Status DC Ondansetron HCl (Zofran) 4 mg PRN Q6HRS PRN IVP NAUSEA/VOMITING Last administered on 12/20/19at 04:18; Start 12/17/19 at 14:15 Non-Formulary Medication 1 ea/ Sodium Chloride 210 ml @ 210 mls/hr 1X ONCE IV Last administered on 12/17/19at 15:45; Start 12/17/19 at 16:00; Stop 12/17/19 at 16:59; Status DC Non-Formulary Medication 1 ea/ Sodium Chloride 230 ml @ 460 mls/hr Q24H IV Last administered on 12/21/19at 09:11; Start 12/18/19 at 09:00; Stop 12/21/19 at 09:29; Status DC Morphine Sulfate (Morphine Sulfate) 2 mg PRN Q2HR PRN IV SEVERE PAIN 7-10 Last administered on 12/23/19at 01:10; Start 12/17/19 at 23:45 Cyclobenzaprine HCl (Flexeril) 5 mg PRN Q6HRS PRN PO MUSCLE SPASMS Last administered on 12/22/19at 21:31; Start 12/17/19 at 23:45 Famotidine (Pepcid) 20 mg BID PO Last administered on 12/22/19at 21:00; Start 12/18/19 at 09:00 Piperacillin Sod/ Tazobactam Sod 3.375 gm/Sodium Chloride 50 ml @ 100 mls/hr Q6HRS IV Last administered on 12/23/19at 05:48; Start 12/18/19 at 13:00 Ascorbic Acid (Vitamin C) 500 mg DAILY PO Last administered on 12/22/19at 08:38; Start 12/18/19 at 14:00 Thiamine Mononitrate (Vitamin B-1) 100 mg DAILY PO Last administered on 12/22/19at 08:41; Start 12/18/19 at 14:00 Zinc Sulfate (Orazinc) 220 mg QHS PO Last administered on 12/22/19at 21:31; Start 12/19/19 at 21:00 Potassium Phosphate (K-Phos Original) 500 mg DAILY PO ; Start 12/19/19 at 14:15; Stop 12/19/19 at 14:50; Status DC Potassium Phosphate (K-Phos Original) 500 mg DAILY PO Last administered on 12/22/19at 08:38; Start 12/19/19 at 17:00 Methylprednisolone Sodium Succinate (SOLU-Medrol 125MG VIAL) 125 mg 1X STAT IV Last administered on 12/20/19at 11:18; Start 12/20/19 at 11:14; Stop 12/20/19 at 11:16; Status DC Linezolid/Dextrose 300 ml @ 300 mls/hr Q12HR IV Last administered on 12/22/19at 21:33; Start 12/20/19 at 12:30 Methylprednisolone Sodium Succinate (SOLU-Medrol 40MG VIAL) 80 mg Q8HRS IV Last administered on 12/23/19at 05:48; Start 12/20/19 at 15:00 Sterile Water (WATER for RESP) 1,000 ml CONT PRN INH VIA VAPOTHERM DEVICE Last administered on 12/22/19at 04:07; Start 12/20/19 at 18:30 Lidocaine HCl (Glydo (Lidocaine) Jelly) 1 saurabh 1X ONCE MM Last administered on 12/22/19at 13:00; Start 12/22/19 at 13:00; Stop 12/22/19 at 13:01; Status DC Active Scripts Active Ada 5-325 Tablet (Acetaminophen/Hydrocodone Bitart) 1 Each Tablet 1 Tab PO BID 3 Days Reported Proair Hfa Inhaler (Albuterol Sulfate) 8.5 Gm Hfa.aer.ad 2 Puff IH PRN Q4-6HRS PRN 21 Days Hemmorex-Hc (Hydrocortisone Acetate) 25 Mg Supp.rect 25 Mg RC PRN BID PRN Fluticasone Propionate Nasal [place] (Fluticasone Propionate) 16 Gm [place].susp 2 [place] NS DAILY Atorvastatin Calcium 10 Mg Tablet 1 Tab PO DAILY Sudogest (Pseudoephedrine Hcl) 30 Mg Tablet 30 Mg PO PRN Q6HRS PRN Loratadine 10 Mg Tablet 1 Tab PO DAILY Metoprolol Tartrate 50 Mg Tablet 1 Tab PO DAILY Omeprazole 20 Mg Capsule.dr 1 Cap PO DAILY06 Flomax (Tamsulosin Hcl) 0.4 Mg Cap.er.24h 1 Cap PO DAILY Losartan-Hctz 50-12.5 Mg Tab (Losartan/Hydrochlorothiazide) 1 Each Tablet 1 Tab PO DAILY Aspirin Ec (Aspirin) 81 Mg Tablet.dr 1 Tab PO DAILY Vitals/I & O Vital Sign - Last 24 Hours 12/22/19 12/22/19 12/22/19 12/22/19 10:00 11:00 11:30 12:00 Temp 98.2 98.2 Pulse 50 54 52 Resp 23 21 38 B/P (MAP) 120/58 (78) 117/61 (79) 125/70 (88) Pulse Ox 96 94 91 68 O2 Delivery Vapotherm Vapotherm VAPOTHERM Vapotherm O2 Flow Rate 40.0 40.0 40.0 40.0 12/22/19 12/22/19 12/22/19 12/22/19 12:00 13:00 14:00 14:24 Pulse 66 64 Resp 25 25 B/P (MAP) 104/52 (69) 115/56 (75) Pulse Ox 97 95 97 O2 Delivery Nasal Cannula Vapotherm Vapotherm VAPOTHERM O2 Flow Rate 40.0 40.0 40.0 40.0 12/22/19 12/22/19 12/22/19 12/22/19 15:00 16:00 16:00 17:00 Pulse 48 46 Resp 34 27 B/P (MAP) 131/64 (86) 121/65 (83) Pulse Ox 96 95 97 O2 Delivery Vapotherm Nasal Cannula Vapotherm VAPOTHERM O2 Flow Rate 40.0 40.0 40.0 40.0 12/22/19 12/22/19 12/22/19 12/22/19 17:00 18:00 19:00 20:00 Temp 98.4 98.4 Pulse 48 46 50 58 Resp 25 27 25 28 B/P (MAP) 113/56 (75) 132/70 (90) 139/70 (93) Pulse Ox 93 95 95 93 O2 Delivery Vapotherm Vapotherm Vapotherm Vapotherm O2 Flow Rate 40.0 40.0 40.0 40.0 12/22/19 12/22/19 12/22/1920 20:00 20:06 21:00 22:00 Pulse 56 48 Resp 25 B/P (MAP) 131/76 (94) 137/69 (91) Pulse Ox 94 95 94 O2 Delivery Nasal Cannula VAPOTHERM Vapotherm Vapotherm O2 Flow Rate 40.0 40.0 40.0 40.0 12/22/19 12/22/19 12/22/19 12/22/19 23:00 23:55 23:59 23:59 Temp 98.1 98.1 Pulse 62 50 Resp 25 B/P (MAP) 128/62 (84) 135/67 (89) Pulse Ox 92 96 92 O2 Delivery Vapotherm VAPOTHERM Vapotherm Nasal Cannula O2 Flow Rate 40.0 40.0 40.0 40.0 12/23/19 12/23/19 12/23/19 12/23/19 01:00 01:10 01:56 02:00 Pulse 53 58 Resp 24 B/P (MAP) 146/81 (102) 148/81 (103) Pulse Ox 93 93 93 93 O2 Delivery Vapotherm Nasal Cannula Nasal Cannula Vapotherm O2 Flow Rate 40.0 40.0 40.0 40.0 12/23/19 12/23/19 12/23/19 12/23/19 03:00 03:55 04:00 04:00 Temp 98.9 98.9 Pulse 63 49 Resp 32 22 B/P (MAP) 123/72 (89) 113/59 (77) Pulse Ox 94 96 95 O2 Delivery Vapotherm VAPOTHERM Nasal Cannula Vapotherm O2 Flow Rate 40.0 40.0 40.0 40.0 12/23/19 12/23/19 12/23/19 12/23/19 05:00 06:00 07:00 07:55 Pulse 48 53 60 Resp 21 24 30 B/P (MAP) 115/66 (82) 140/67 (91) 121/72 (88) Pulse Ox 95 94 87 93 O2 Delivery Vapotherm Vapotherm Vapotherm VAPOTHERM O2 Flow Rate 40.0 40.0 40.0 40.0 Intake and Output 12/22/19 12/22/19 12/23/19 15:00 23:00 07:00 Intake Total 550 ml 617 ml 1530 ml Output Total 251 ml 500 ml 750 ml Balance 299 ml 117 ml 780 ml Justicifation of Admission Dx: Justifications for Admission: Justification of Admission Dx: Yes Acute Renal Failure: 3-Fold Rise in Serum Crea KARLIE SWANN MD Dec 23, 2019 09:20
[2019-12-23] MEDS: ASCORBIC ACID 500 MG TABLET PO SCH (09:40)
[2019-12-23] MEDS: THIAMINE 100 MG TABLET. PO SCH (09:40)
[2019-12-23] MEDS: FAMOTIDINE 20 MG TABLET. PO SCH ×2 (09:40→20:36)
[2019-12-23] MEDS: POTASSIUM PHOSPHATE,MONOBASIC 500 MG TABLET. PO SCH (09:40)
[2019-12-23] MEDS: LACTOBACILLUS RHAMNOSUS GG 1 CAPSULE. PO SCH ×2 (09:41→20:38)
[2019-12-23] MEDS: ENOXAPARIN 40 MG/0.4 ML SYRINGE. SQ SCH ×2 (09:42→20:36)
--- NOTE | 2019-12-23 11:26 | PDOC ---
PULMONARY PROGRESS NOTES Subjective Patient feels better, less tachypneic and dyspneic. Now has a Pulido in place, strength is weak. on vapotherm Vitals Vital Signs Date Time Temp Pulse Resp B/P (MAP) Pulse Ox O2 Delivery O2 Flow Rate FiO2 12/23/19 11:08 48 27 136/67 (90) 91 Vapotherm 40.0 12/23/19 09:00 98.4 98.4 ROS: No Nausea, No Chest Pain, No Abdominal Pain, No Increase Cough General: Alert, No acute distress Lungs: Crackles Cardiovascular: S1, S2 Abdomen: Soft Neuro Exam: Alert Extremities: No Edema Skin: Warm Labs Laboratory Tests Test 12/22/19 05:00 12/22/19 08:30 12/23/19 07:50 12/23/19 08:10 White Blood Count 11.4 x10^3/uL (4.0-11.0) 12.7 x10^3/uL (4.0-11.0) Red Blood Count 3.50 x10^6/uL (4.30-5.70) 3.37 x10^6/uL (4.30-5.70) Hemoglobin 10.7 g/dL (13.0-17.5) 10.6 g/dL (13.0-17.5) Hematocrit 31.6 % (39.0-53.0) 30.3 % (39.0-53.0) Mean Corpuscular Volume 90 fL (79-100) 90 fL (79-100) Mean Corpuscular Hemoglobin 31 pg (25-35) 32 pg (25-35) Mean Corpuscular Hemoglobin Concent 34 g/dL (31-37) 35 g/dL (31-37) Red Cell Distribution Width 14.8 % (11.5-14.5) 15.0 % (11.5-14.5) Platelet Count 387 x10^3/uL (140-400) 239 x10^3/uL (140-400) Neutrophils (%) (Auto) 94 % (31-73) Lymphocytes (%) (Auto) 3 % (24-48) Monocytes (%) (Auto) 2 % (0-9) Eosinophils (%) (Auto) 0 % (0-3) Basophils (%) (Auto) 0 % (0-3) Neutrophils # (Auto) 10.8 x10^3/uL (1.8-7.7) Lymphocytes # (Auto) 0.3 x10^3/uL (1.0-4.8) Monocytes # (Auto) 0.3 x10^3/uL (0.0-1.1) Eosinophils # (Auto) 0.0 x10^3/uL (0.0-0.7) Basophils # (Auto) 0.0 x10^3/uL (0.0-0.2) Fibrinogen 647 mg/dL (200-440) D-Dimer ([place]) 2.14 ug/mlFEU (0.00-0.50) Sodium Level 144 mmol/L (136-145) 146 mmol/L (136-145) Potassium Level 3.8 mmol/L (3.5-5.1) 3.8 mmol/L (3.5-5.1) Chloride Level 110 mmol/L (98-107) 112 mmol/L (98-107) Carbon Dioxide Level 24 mmol/L (21-32) 25 mmol/L (21-32) Anion Gap 10 (6-14) 9 (6-14) Blood Urea Nitrogen 25 mg/dL (8-26) 35 mg/dL (8-26) Creatinine 1.5 mg/dL (0.7-1.3) 1.7 mg/dL (0.7-1.3) Estimated GFR (Cockcroft-Gault) 47.4 41.0 Glucose Level 175 mg/dL (70-99) 181 mg/dL (70-99) Calcium Level 7.7 mg/dL (8.5-10.1) 7.6 mg/dL (8.5-10.1) O2 Saturation 92 % (92-99) Arterial Blood pH 7.42 (7.35-7.45) 7.51 (7.35-7.45) Arterial Blood pCO2 at Patient Temp 35 mmHg (35-46) 29 mmHg (35-46) Arterial Blood pO2 at Patient Temp 67 mmHg (65-108) 151 mmHg (65-108) Arterial Blood HCO3 22 mmol/L (21-28) 22 mmol/L (21-28) Arterial Blood Base Excess -2 mmol/L (-3-3) 1 mmol/L (-3-3) FiO2 100% vt 100% Laboratory Tests Test 12/23/19 07:50 12/23/19 08:10 White Blood Count 12.7 x10^3/uL (4.0-11.0) Red Blood Count 3.37 x10^6/uL (4.30-5.70) Hemoglobin 10.6 g/dL (13.0-17.5) Hematocrit 30.3 % (39.0-53.0) Mean Corpuscular Volume 90 fL (79-100) Mean Corpuscular Hemoglobin 32 pg (25-35) Mean Corpuscular Hemoglobin Concent 35 g/dL (31-37) Red Cell Distribution Width 15.0 % (11.5-14.5) Platelet Count 239 x10^3/uL (140-400) Sodium Level 146 mmol/L (136-145) Potassium Level 3.8 mmol/L (3.5-5.1) Chloride Level 112 mmol/L (98-107) Carbon Dioxide Level 25 mmol/L (21-32) Anion Gap 9 (6-14) Blood Urea Nitrogen 35 mg/dL (8-26) Creatinine 1.7 mg/dL (0.7-1.3) Estimated GFR (Cockcroft-Gault) 41.0 Glucose Level 181 mg/dL (70-99) Calcium Level 7.6 mg/dL (8.5-10.1) Arterial Blood pH 7.51 (7.35-7.45) Arterial Blood pCO2 at Patient Temp 29 mmHg (35-46) Arterial Blood pO2 at Patient Temp 151 mmHg (65-108) Arterial Blood HCO3 22 mmol/L (21-28) Arterial Blood Base Excess 1 mmol/L (-3-3) FiO2 100% Medications Active Scripts Medications Dose Route/Sig Max Daily Dose Days Date Category Proair Hfa Inhaler (Albuterol Sulfate) 8.5 Gm Hfa.aer.ad 2 Puff IH PRN Q4-6HRS PRN 21 12/14/19 Reported Hemmorex-Hc (Hydrocortisone Acetate) 25 Mg Supp.rect 25 Mg RC PRN BID PRN 12/14/19 Reported Fluticasone Propionate Nasal [place] (Fluticasone Propionate) 16 Gm [place].susp 2 [place] NS DAILY 12/14/19 Reported Atorvastatin Calcium 10 Mg Tablet 1 Tab PO DAILY 12/14/19 Reported Sudogest (Pseudoephedrine Hcl) 30 Mg Tablet 30 Mg PO PRN Q6HRS PRN 12/14/19 Reported Loratadine 10 Mg Tablet 1 Tab PO DAILY 12/14/19 Reported Metoprolol Tartrate 50 Mg Tablet 1 Tab PO DAILY 12/14/19 Reported Omeprazole 20 Mg Capsule.dr 1 Cap PO DAILY06 12/14/19 Reported Flomax (Tamsulosin Hcl) 0.4 Mg Cap.er.24h 1 Cap PO DAILY 12/14/19 Reported Losartan-Hctz 50-12.5 Mg Tab (Losartan/Hydrochlorothiazide) 1 Each Tablet 1 Tab PO DAILY 12/14/19 Reported Aspirin Ec (Aspirin) 81 Mg Tablet.dr 1 Tab PO DAILY 12/14/19 Reported Roggen 5-325 Tablet (Acetaminophen/Hydrocodone Bitart) 1 Each Tablet 1 Tab PO BID 3 10/20/17 Rx Impression . IMPRESSION: 1. Acute hypoxemic respiratory failure secondary to COVID-19 3. Fever. Secondary to COVID-19 4. COVID-19 positive. 5. Acute kidney injury. 6. Possible bacterial pneumonia gram-positive, gram-negative 7. Elevated d-dimer will monitor for now, Lovenox twice daily, 40 mg Plan . Continue support with Vapotherm. will try high flow regular canula and wean vapotherm Steroid Follow d-dimer, noted, patient on Lovenox twice daily Continue empiric antibiotics Status post convalescent plasma Up to chair as tolerated Total cumulative critical care time of 30 minutes, reviewing data, chest x-ray, labs, and formulating a plan RADHA MARIE MD Dec 23, 2019 11:26
[2019-12-23] MEDS: CYCLOBENZAPRINE 10 MG TABLET. PO PRN ×2 (14:00→20:36)
--- NOTE | 2019-12-23 15:25 | NUR ---
SS following up with discharge planning. SS reviewed pt chart and discussed with pt RN. Pt remains on Vapotherm at this time. COVID19 positive. Pt on IV Zosyn. SS will continue to follow for discharge planning.
[2019-12-23 15:50] LABS: BASE EXCESS ABG -3 mmol/L (-3-3); HCO3 ABG 21 mmol/L (21-28); PCO2 ABG 34 mmHg (35-46); SAT O2 ABG 73 % (92-99)
[2019-12-23 15:52] LABS: FIO2 ABG 75%; PO2 ABG < 42 mmHg (65-108)
--- NOTE | 2019-12-23 17:51 | NUR ---
Pt has had decreased urine output gradually throughout shift, bladder scan done and revealed 165 cc's of urine in bladder. Pt does take flomax at home for retention/ Dr Venegas paged, return call received, orders given ok to restart flomax tonight.
[2019-12-23] MEDS ORDERED: TAMSULOSIN 0.4 MG CAP.ER.24H. PO ONE (20:15)
[2019-12-23] MEDS: ZINC SULFATE 220 MG CAPSULE. PO SCH (20:35)
[2019-12-24 00:01] VITALS: BP 112/82
[2019-12-24] MEDS ORDERED: EPINEPHrine SYRINGE 1 MG/10 ML SYRINGE ONE (00:11)
--- NOTE | 2019-12-24 02:00 | NUR ---
Patient used call light and reported having a bowel movement and needed help. Delayed due o being in another patient's room. Arrived to patient's side to find ekg leads, sao2, and vapotherm. Blood noted to face and linens. IV out. Patient lying on his right side toward the foot of the bed with feet off the bed. Incontinent of bowl. States "I can't get comfortable". Not following commands but answers questions. Difficulty repositioning patient, unable to place monitoring equipment back on patient. Patient somnolent and cyanotic. Epifanio RT on unit and requested at bedside. Attempted to reposition patient when patient with agonal respirations but palpable carotid. Respiratory code called and repositioned. Epifanio RT at head and attempted ventilations with BVM. MARIETTA Colon arrived at bedside and assisted. NO palpable pulses. Compressions started. Approximately 0012H. See code blue sheet.
--- NOTE | 2019-12-24 02:24 | NUR ---
Family notified of patient resuscitation. Dr. Spencer spoke with daughter, Adriane and advised of patient condition. ROSC achieved but resuscitation started. Resuscitation efforts stopped and code called by Dr. Spencer at 0057 hours. Family notified of patient . No home at this time. supervisor boarding phone number left with with daughter Adriane and advised call with information. Adriane advised her and patient's Eladia were covid positive. Advised Adriane that her family will not be able to come to hospital due to their covid status. Patient upset but acknowledged understanding.
--- NOTE | 2019-12-24 04:44 | PDOC5 ---
CODE REPORT CODE REPORT CODE BLUE: (EMERGENCY DEPARTMENT NOTE) HPI: Called emergency to respond to consult for inpatient hospital code in ICU room 114 for patient who had tested positive for COVID-19 and was being treated with high flow O2. CODE Blue called at 0018. Patient in PEA arrest. ACLS protocol utilized. CPR performed by ICU staff including supplement O2 with BVM upon my arrival to department. HPI limited secondary to cardiopulmonary arrest. Assesment: Constitutional: Well developed, unresponsive HENT: Normocephalic, oropharynx moist Eyes: Pupils dilated and unresponsive, conjunctiva normal Neck: Normal range of motion, supple Cardiovascular: NO carotid or femoral pulse on palpation Lungs & Thorax: Artificial with bag valve mask, equal chest rise with bag valve mask Skin: Warm, dry, no erythema, no rash Extremities: No tenderness, ROM intact, no edema Neurologic: GCS 3, unresponsive MDM: (See hospital code sheet) Patient in cardiopulmonary arrest in ICU. Hx of positive COVID and requiring high flow O2. Called to ICU at 0018. ACLS protocol utilized. CPR in progress upon my arrival. Initial rhythm PEA. IO placed to right tibia due to lack of IV access. Epinephrine provided. Accucheck 160 upon arrival. Intubation successful on first attempt utilizing Glidescope for placement of 7.5 ETT. ACLS continued. A total of epinephrine x 7 doses provided. Patient did have a brief episode of return of spontaneous circulation early during treatment. Patient a lso with one episode of shockable rhythm of Vfib which was defibrillated at 200J. Patient continued CPR and ACLS. Bright red blood started to become very prominent extending into BVM despite frequent inline suctioning. Likely secondary to continued quality CPR and pulmonary contusions. Patient without further return of spontaneous circulation. Time of called at 0057. Dr. Venegas (hospitalist) notified. Discussed findings and plan with patient's daughter, Adriane, via phone who acknowledges understanding and agreement. COVID-19 CRITERIA: The patient was evaluated during the global COVID-19 pandemic, and that diagnosis was suspected/considered upon their initial presentation. Their evaluation, treatment and testing was consistent with current guidelines for patients who present with complaints or symptoms that may be related to COVID-19. Clincal Impression: 1) Cardiopulmonary Arrest 2) COVID Condition: Intubation Intubation : Time of Intubation: 00:22 Intubation Method: orotracheal Tube Size (cm): 7.5 Breath Sounds after Intubation: equal Intubation Complications: no complications Progress Emergent consent obtained. Time out performed. Hand hygiene utilized. PPE with PAPR utilized given patient with COVID and high risk procedure. Intubation performed during CPR utilizing Glidescope and 7.5 ETT. Marked 24cm at lip and secured. Positive CO2 color change. Fogging in tube and equal chest rise and fall noted. Additional Procedures Progress Intraosseous line placement: Emergent consent obtained. Time out performed. Hand hygiene utilized. PPE utilized including PAPR , gown, and double gloves. Need for vascular access for rescue medications during CODE BLUE. Right tibial IO placed by ED physician with success and secured in place. Blood drawn back and able to flush. COVID-19 Assessment: COVID-19 Patient Risks: Age 65 or older: No Sign of co-morbidity: Yes Exp to person + for COVID: Yes Exp to PUI: No Travel from affected area: No Lower respiratory symptoms: Yes Fever: Yes PPE Use: Full PPE with N95 mask or PAPR: Yes Critical Care Time Critical care time was 30 minutes which includes time at bedside, spent in discussion of patient's care with specialists and/or family members, with interpretation of laboratory and/or radiological studies and is exclusive of procedures. LOLY MENDOZA DO Dec 24, 2019 04:44
[2019-12-24] MEDS ORDERED: TAMSULOSIN 0.4 MG CAP.ER.24H. PO SCH (09:00)
--- NOTE | 2019-12-24 09:44 | PDOC3 ---
Discharge Summary Date of Admission: Dec 13, 2019 Date of Discharge: Dec 24, 2019 Follow-Up: Other () Admitting Diagnosis comment: DISCHARGE DX COVID-19 POS SYNDROME Respiratory failure Pneumonia Nephropathy Sepsis Chest pain Shortness of breath DILLAN SEVERE protein-caloric malnutrition Cont Zosyn DC Zyvox Status post plasma convalescent treatment Status post Remdesivir (12/16) CONSULT NEPHROLOGY History of Present Illness History of Present Illness 12/23/2019 Patient seen and examined in the COVID-19 ICU Discussed with RN Chart reviewed He remains on Vapotherm Complains of urinary burning with his Pulido catheter lidocaine jelly for the Pulido catheter 36 MIN CC TIME Mr Smith is a 64 yo M w/ no PMHx otherwise healthy from [place] drove to [place] to visit her daughter for her Bday. states came to [place] on November 30. reported cough and fever and was diagnosed with covid 19 on december 07 in ED. instructed to go home and self quarantine but did not improve. sent home with az ithromycin. experienced more chest pain and SOB for past 24 hr along with fever at home so came to ED for further evaluation. her daughter is dx with covid. patient's also has symptoms of covid-19 but had not been tested yet. 12/13: Patient seen and examined bedside today. No acute events overnight. Patient has been remained afebrile and does not require O2 requirements. S aturating 93% on room air 12/14: T-max of 102.4. Patient is oxygenating well as well as 95% on room air. Patient states he feels fine with some cough that is bothering him. He is tolerating diet and ambulating without assistance. 12/15: No acute events overnight. Patient persistently fevers in the 102. Patient has been oxygenating 96% on room air. His cough has improved and he appears comfortable at this time. 12/16: Desaturation episode to 88% that required him to be on 5 L nonrebreather mask. Patient was also continuing to have fevers in the as high as 101.4. Labs and x-ray were drawn at this time 12/17: Fevers of 101.9. Patient is saturating 92% on nonrebreather. Continued IV antibiotics, IV convalescent Ig, and IV Remdesivir. 12/18: Febrile 102.4 F this morning. On 6 L nasal cannula and nonrebreather mask. He states he feels better however he has significant desaturations and continues to remove his oxygen Febrile to 101.7 F today. On 15 L nonrebreather. He is thirsty and has a little bit of an appetite, however he has been coughing after eating and drinking. Worse diarrhea. CODE REPORT CODE REPORT CODE REPORT CODE BLUE: (EMERGENCY DEPARTMENT NOTE) HPI: Called emergency to respond to consult for inpatient hospital code in ICU room 114 for patient who had tested positive for COVID-19 and was being treated with high flow O2. CODE Blue called at 0018. Patient in PEA arrest. ACLS protocol utilized. CPR performed by ICU staff including supplement O2 with BVM upon my arrival to department. HPI limited secondary to cardiopulmonary arrest. Assesment: Constitutional: Well developed, unresponsive HENT: Normocephalic, oropharynx moist Eyes: Pupils dilated and unresponsive, conjunctiva normal Neck: Normal range of motion, supple Cardiovascular: NO carotid or femoral pulse on palpation Lungs & Thorax: Artificial with bag valve mask, equal chest rise with bag valve mask Skin: Warm, dry, no erythema, no rash Extremities: No tenderness, ROM intact, no edema Neurologic: GCS 3, unresponsive MDM: (See hospital code sheet) Patient in cardiopulmonary arrest in ICU. Hx of positive COVID and requiring high flow O2. Called to ICU at 0018. ACLS protocol utilized. CPR in progress upon my arrival. Initial rhythm PEA. IO placed to right tibia due to lack of IV access. Epinephrine provided. Accucheck 160 upon arrival. Intubation successful on first attempt utilizing Glidescope for placement of 7.5 ETT. ACLS continued. A total of epinephrine x 7 doses provided. Patient did have a brief episode of return of spontaneous circulation early during treatment. Patient also with one episode of shockable rhythm of Vfib which was defibrillated at 200J. Patient continued CPR and ACLS. Bright red blood started to become very prominent extending into BVM despite frequent inline suctioning. Likely secondary to continued quality CPR and pulmonary contusions. Patient without further return of spontaneous circulation. Time of called at 0057. Dr. Swann (hospitalist) notified. Discussed findings and plan with patient's daughter, Adriane, via phone who acknowledges understanding and agreement. COVID-19 CRITERIA: The patient was evaluated during the global COVID-19 pandemic, and that diagnosis was suspected/considered upon their initial presentation. Their evaluation, treatment and testing was consistent with current guidelines for patients who present with complaints or symptoms that may be related to COVID-19. Clincal Impression: 1) Cardiopulmonary Arrest 2) COVID Condition: Procedures Intubation Intubation : Time of Intubation: 00:22 Intubation Method: orotracheal Tube Size (cm): 7.5 Breath Sounds after Intubation: equal Intubation Complications: no complications Progress Emergent consent obtained. Time out performed. Hand hygiene utilized. PPE with PAPR utilized given patient with COVID and high risk procedure. Intubation performed during CPR utilizing Glidescope and 7.5 ETT. Marked 24cm at lip and secured. Positive CO2 color change. Fogging in tube and equal chest rise and fall noted. Additional Procedures Progress Intraosseous line placement: Emergent consent obtained. Time out performed. Hand hygiene utilized. PPE utilized including PAPR , gown, and double gloves. Need for vascular access for rescue medications during CODE BLUE. Right tibial IO placed by ED physician with success and secured in place. Blood drawn back and able to flush. COVID-19 Assessment: COVID-19 Assessment: COVID-19 Patient Risks: Age 65 or older: No Sign of co-morbidity: Yes Exp to person + for COVID: Yes Exp to PUI: No Travel from affected area: No Lower respiratory symptoms: Yes Fever: Yes Plan: ICU on vapotherm therapy Vitals Vitals Vital Signs Date Time Temp Pulse Resp B/P (MAP) Pulse Ox O2 Delivery O2 Flow Rate FiO2 12/23/19 07:55 93 VAPOTHERM 40.0 12/23/19 07:00 60 30 121/72 (88) 12/23/19 03:00 98.9 98.9 Physical Exam Physical Exam GENERAL: On Vapotherm nonverbal currently HEENT: oral cavity clear NECK: Supple LUNGS: Coarse breath sounds HEART: S1, S2, no murmurs ABDOMEN: Soft and nontender mildly distended, bowel sounds present EXTREMITIES: No edema, cyanosis. SKIN: warm to touch General: moderate distress, Other (On Vapotherm) Heart: Other (Tachycardic) Lungs: Crackles Abdomen: No tenderness Extremities: No clubbing Skin: No breakdown FINAL DIAGNOSIS Problems Medical Problems: (1) Acute renal failure Status: Acute (2) Pneumonia due to 2019 novel coronavirus Status: Acute Brief Hospital Course Mr. Smith is a 64 old [sex] who presented with [COVID-19 SYNDROME ] CONDITION AT DISCHARGE: / Discharge Medications Current Medications Azithromycin 250 ml @ 250 mls/hr 1X ONCE IV Last administered on 12/13/19at 14:45; Start 12/13/19 at 14:45; Stop 12/13/19 at 15:44; Status DC Methylprednisolone Sodium Succinate (SOLU-Medrol 125MG VIAL) 125 mg 1X ONCE IV Last administered on 12/13/19at 15:23; Start 12/13/19 at 15:00; Stop 12/13/19 at 15:01; Status DC Ibuprofen (Motrin) 800 mg 1X ONCE PO Last administered on 12/13/19at 15:23; Start 12/13/19 at 15:00; Stop 12/13/19 at 15:01; Status DC Sodium Chloride 1,000 ml @ 1,000 mls/hr 1X ONCE IV Last administered on 12/13/19at 15:58; Start 12/13/19 at 16:00; Stop 12/13/19 at 16:59; Status DC Ceftriaxone Sodium (Rocephin) 1 gm 1X ONCE IVP Last administered on 12/13/19at 17:43; Start 12/13/19 at 17:00; Stop 12/13/19 at 17:02; Status DC Ondansetron HCl (Zofran) 4 mg PRN Q8HRS PRN IV NAUSEA/VOMITING; Start 12/13/19 at 17:30; Stop 12/14/19 at 17:29; Status DC Sodium Chloride 1,000 ml @ 100 mls/hr Q10H IV ; Start 12/13/19 at 17:26; Stop 12/13/19 at 22:10; Status DC Enoxaparin Sodium (Lovenox Per Pharmacy Prophylaxis Dosing) 1 each PRN DAILY PRN MC SEE COMMENTS; Start 12/13/19 at 18:30; Stop 12/24/19 at 04:24; Status DC Ceftriaxone Sodium (Rocephin) 1 gm Q24H IVP Last administered on 12/15/19at 17:10; Start 12/14/19 at 17:00; Stop 12/16/19 at 10:38; Status DC Azithromycin 500 mg/Sodium Chloride 250 ml @ 250 mls/hr Q24H IV ; Start 12/14/19 at 15:00; Stop 12/14/19 at 11:04; Status DC Enoxaparin Sodium (Lovenox 40mg Syringe) 40 mg Q24H SQ Last administered on 12/14/19at 21:49; Start 12/13/19 at 21:00; Stop 12/15/19 at 14:05; Status DC Sodium Chloride 1,000 ml @ 75 mls/hr [id number] IV Last administered on 12/23/19at 14:54; Start 12/13/19 at 18:30; Stop 12/24/19 at 04:24; Status DC Acetaminophen (Tylenol) 650 mg PRN Q6HRS PRN PO fever Last administered on 12/20/19at 05:20; Start 12/13/19 at 18:45; Stop 12/24/19 at 04:24; Status DC Potassium Chloride (Klor-Con) 40 meq 1X ONCE PO Last administered on 12/13/19at 20:30; Start 12/13/19 at 19:00; Stop 12/13/19 at 19:01; Status DC Lactobacillus Rhamnosus (Culturelle) 1 cap BID PO Last administered on 12/23/19at 20:38; Start 12/14/19 at 13:00; Stop 12/24/19 at 04:24; Status DC Benzonatate (Tessalon Perle) 100 mg PRN Q8HRS PRN PO COUGH Last administered on 12/22/19at 21:31; Start 12/15/19 at 00:15; Stop 12/24/19 at 04:24; Status DC Enoxaparin Sodium (Lovenox 40mg Syringe) 40 mg BID SQ Last administered on 12/23/19at 20:36; Start 12/15/19 at 21:00; Stop 12/24/19 at 04:24; Status DC Amoxicillin (Amoxil) 500 mg [id number] PO ; Start 12/16/19 at 14:00; Stop 12/16/19 at 11:03; Status DC Doxycycline Hyclate (Vibra-Tab) 100 mg BID PO ; Start 12/16/19 at 11:00; Stop 12/16/19 at 11:03; Status DC Ceftriaxone Sodium (Rocephin) 1 gm Q24H IVP Last administered on 12/17/19at 16:58; Start 12/16/19 at 17:00; Stop 12/18/19 at 12:38; Status DC Famotidine (Pepcid) 20 mg PRN DAILY PRN PO HEARTBURN. Last administered on 12/16/19at 11:35; Start 12/16/19 at 11:30; Stop 12/18/19 at 08:58; Status DC Potassium Chloride (Klor-Con) 40 meq PRN DAILY PRN PO PER PROTOCOL; Start 12/17/19 at 12:00; Stop 12/24/19 at 04:24; Status DC Potassium Chloride/Water 100 ml @ 100 mls/hr PRN Q1HR PRN IV SEE COMMENTS; Start 12/17/19 at 12:00; Stop 12/24/19 at 04:24; Status DC Potassium Phos/ Sodium Phos (Phos-Nak) 1 pkt PRN BID PRN PO SEE COMMENTS Last administered on 12/19/19at 14:35; Start 12/17/19 at 21:00; Stop 12/24/19 at 04:24; Status DC Potassium Bicarbonate (Potassium Effervescent Tablet) 40 meq PRN Q4HRS PRN PO PER PROTOCOL; Start 12/17/19 at 12:00; Stop 12/24/19 at 04:24; Status DC Potassium Chloride/Water 100 ml @ 100 mls/hr PRN Q1HR PRN IV PER PROTOCOL; Start 12/17/19 at 12:00; Stop 12/24/19 at 04:24; Status DC Potassium Chloride (Klor-Con) 40 meq 1X ONCE PO Last administered on 12/17/19at 12:45; Start 12/17/19 at 12:30; Stop 12/17/19 at 12:31; Status DC Ondansetron HCl (Zofran) 4 mg PRN Q6HRS PRN IVP NAUSEA/VOMITING Last administered on 12/20/19at 04:18; Start 12/17/19 at 14:15; Stop 12/24/19 at 04:24; Status DC Non-Formulary Medication 1 ea/ Sodium Chloride 210 ml @ 210 mls/hr 1X ONCE IV Last administered on 12/17/19at 15:45; Start 12/17/19 at 16:00; Stop 12/17/19 at 16:59; Status DC Non-Formulary Medication 1 ea/ Sodium Chloride 230 ml @ 460 mls/hr Q24H IV Last administered on 12/21/19at 09:11; Start 12/18/19 at 09:00; Stop 12/21/19 at 09:29; Status DC Morphine Sulfate (Morphine Sulfate) 2 mg PRN Q2HR PRN IV SEVERE PAIN 7-10 Last administered on 12/23/19at 22:01; Start 12/17/19 at 23:45; Stop 12/24/19 at 04:24; Status DC Cyclobenzaprine HCl (Flexeril) 5 mg PRN Q6HRS PRN PO MUSCLE SPASMS Last administered on 12/23/19at 20:36; Start 12/17/19 at 23:45; Stop 12/24/19 at 04:24; Status DC Famotidine (Pepcid) 20 mg BID PO Last administered on 12/23/19at 20:36; Start 12/18/19 at 09:00; Stop 12/24/19 at 04:24; Status DC Piperacillin Sod/ Tazobactam Sod 3.375 gm/Sodium Chloride 50 ml @ 100 mls/hr Q6HRS IV Last administered on 12/23/19at 18:16; Start 12/18/19 at 13:00; Stop 12/24/19 at 04:24; Status DC Ascorbic Acid (Vitamin C) 500 mg DAILY PO Last administered on 12/23/19at 09:40; Start 12/18/19 at 14:00; Stop 12/24/19 at 04:24; Status DC Thiamine Mononitrate (Vitamin B-1) 100 mg DAILY PO Last administered on 12/23/19at 09:40; Start 12/18/19 at 14:00; Stop 12/24/19 at 04:24; Status DC Zinc Sulfate (Orazinc) 220 mg QHS PO Last administered on 12/23/19at 20:35; Start 12/19/19 at 21:00; Stop 12/24/19 at 04:24; Status DC Potassium Phosphate (K-Phos Original) 500 mg DAILY PO ; Start 12/19/19 at 14:15; Stop 12/19/19 at 14:50; Status DC Potassium Phosphate (K-Phos Original) 500 mg DAILY PO Last administered on 12/23/19at 09:40; Start 12/19/19 at 17:00; Stop 12/24/19 at 04:24; Status DC Methylprednisolone Sodium Succinate (SOLU-Medrol 125MG VIAL) 125 mg 1X STAT IV Last administered on 12/20/19at 11:18; Start 12/20/19 at 11:14; Stop 12/20/19 at 11:16; Status DC Linezolid/Dextrose 300 ml @ 300 mls/hr Q12HR IV Last administered on 12/23/19at 09:41; Start 12/20/19 at 12:30; Stop 12/23/19 at 10:16; Status DC Methylprednisolone Sodium Succinate (SOLU-Medrol 40MG VIAL) 80 mg Q8HRS IV Last administered on 12/23/19at 22:01; Start 12/20/19 at 15:00; Stop 12/24/19 at 04:24; Status DC Sterile Water (WATER for RESP) 1,000 ml CONT PRN INH VIA VAPOTHERM DEVICE Last administered on 12/22/19at 04:07; Start 12/20/19 at 18:30; Stop 12/24/19 at 04:24; Status DC Lidocaine HCl (Glydo (Lidocaine) Jelly) 1 saurabh 1X ONCE MM Last administered on 12/22/19at 13:00; Start 12/22/19 at 13:00; Stop 12/22/19 at 13:01; Status DC Tamsulosin HCl (Flomax) 0.4 mg DAILY PO ; Start 12/24/19 at 09:00; Stop 12/24/19 at 04:24; Status DC Tamsulosin HCl (Flomax) 0.4 mg 1X ONCE PO Last administered on 12/23/19at 20:36; Start 12/23/19 at 20:15; Stop 12/23/19 at 20:16; Status DC Active Scripts Active [place] 5-325 Tablet (Acetaminophen/Hydrocodone Bitart) 1 Each Tablet 1 Tab PO BID 3 Days Reported Proair Hfa Inhaler (Albuterol Sulfate) 8.5 Gm Hfa.aer.ad 2 Puff IH PRN Q4-6HRS PRN 21 Days Hemmorex-Hc (Hydrocortisone Acetate) 25 Mg Supp.rect 25 Mg RC PRN BID PRN Fluticasone Propionate Nasal [place] (Fluticasone Propionate) 16 Gm [place].susp 2 [place] NS DAILY Atorvastatin Calcium 10 Mg Tablet 1 Tab PO DAILY Sudogest (Pseudoephedrine Hcl) 30 Mg Tablet 30 Mg PO PRN Q6HRS PRN Loratadine 10 Mg Tablet 1 Tab PO DAILY Metoprolol Tartrate 50 Mg Tablet 1 Tab PO DAILY Omeprazole 20 Mg Capsule.dr 1 Cap PO DAILY06 Flomax (Tamsulosin Hcl) 0.4 Mg Cap.er.24h 1 Cap PO DAILY Losartan-Hctz 50-12.5 Mg Tab (Losartan/Hydrochlorothiazide) 1 Each Tablet 1 Tab PO DAILY Aspirin Ec (Aspirin) 81 Mg Tablet.dr 1 Tab PO DAILY Vital Signs Vital Signs Date Time Temp Pulse Resp B/P (MAP) Pulse Ox O2 Delivery O2 Flow Rate FiO2 12/24/19 00:10 Vapotherm 12/24/19 00:01 50 26 40.0 12/23/19 23:00 99 12/23/19 20:00 98.1 98.1 Labs Laboratory Tests Test 12/23/19 07:50 12/23/19 08:10 12/23/19 15:00 12/24/19 00:25 White Blood Count 12.7 x10^3/uL (4.0-11.0) Red Blood Count 3.37 x10^6/uL (4.30-5.70) Hemoglobin 10.6 g/dL (13.0-17.5) Hematocrit 30.3 % (39.0-53.0) Mean Corpuscular Volume 90 fL (79-100) Mean Corpuscular Hemoglobin 32 pg (25-35) Mean Corpuscular Hemoglobin Concent 35 g/dL (31-37) Red Cell Distribution Width 15.0 % (11.5-14.5) Platelet Count 239 x10^3/uL (140-400) Sodium Level 146 mmol/L (136-145) Potassium Level 3.8 mmol/L (3.5-5.1) Chloride Level 112 mmol/L (98-107) Carbon Dioxide Level 25 mmol/L (21-32) Anion Gap 9 (6-14) Blood Urea Nitrogen 35 mg/dL (8-26) Creatinine 1.7 mg/dL (0.7-1.3) Estimated GFR (Cockcroft-Gault) 41.0 Glucose Level 181 mg/dL (70-99) Calcium Level 7.6 mg/dL (8.5-10.1) Arterial Blood pH 7.51 (7.35-7.45) 7.40 (7.35-7.45) Arterial Blood pCO2 at Patient Temp 29 mmHg (35-46) 34 mmHg (35-46) Arterial Blood pO2 at Patient Temp 151 mmHg (65-108) < 42 mmHg (65-108) Arterial Blood HCO3 22 mmol/L (21-28) 21 mmol/L (21-28) Arterial Blood Base Excess 1 mmol/L (-3-3) -3 mmol/L (-3-3) FiO2 100% 75% O2 Saturation 73 % (92-99) Glucose (Fingerstick) 160 mg/dL (70-99) Laboratory Tests Test 12/23/19 15:00 12/24/19 00:25 O2 Saturation 73 % (92-99) Arterial Blood pH 7.40 (7.35-7.45) Arterial Blood pCO2 at Patient Temp 34 mmHg (35-46) Arterial Blood pO2 at Patient Temp < 42 mmHg (65-108) Arterial Blood HCO3 21 mmol/L (21-28) Arterial Blood Base Excess -3 mmol/L (-3-3) FiO2 75% Glucose (Fingerstick) 160 mg/dL (70-99) Allergies Allergies Coded Allergies Type Severity Reaction Last Updated Verified I S O L A T I O N "[place]" Allergy Unknown 12/14/19 Yes No Known Medication Allergies Allergy Unknown 12/16/19 Yes Disposition/Orders: Justicifation of Admission Dx: Justifications for Admission: Justification of Admission Dx: Yes Acute Renal Failure: 3-Fold Rise in Serum Lca KARLIE SWANN MD Dec 24, 2019 09:44
== END 2019-12-24 04:23 | disposition expired | DRG 177 ==
LOC: ER 12:46 → 6 SOUTH 17:00 → 1 WEST ICU 12-20 11:32
PROVIDERS: ADMIT Internal Medicine; ATTEND Internal Medicine
PROC: 30233K1 Transfusion of Nonautologous Frozen Plasma into Peripheral Vein, Percutaneous Approach (ICD-10-PCS; 2019-12-16)
PROC: 5A12012 Performance of Cardiac Output, Single, Manual (ICD-10-PCS; principal; 2019-12-24)
PROC: 0BH17EZ Insertion of Endotracheal Airway into Trachea, Via Natural or Artificial Opening (ICD-10-PCS; 2019-12-24)
DX: U07.1 COVID-19 (principal); A41.89 Other specified sepsis; N17.0 Acute kidney failure with tubular necrosis; E43 Unspecified severe protein-calorie malnutrition; J12.89 Other viral pneumonia; J96.01 Acute respiratory failure with hypoxia; I10 Essential (primary) hypertension; I46.9 Cardiac arrest, cause unspecified; I49.01 Ventricular fibrillation; N40.0 Benign prostatic hyperplasia without lower urinary tract symptoms; Z82.49 Family history of ischemic heart disease and other diseases of the circulatory system; F12.90 Cannabis use, unspecified, uncomplicated; Z79.899 Other long term (current) drug therapy
CPT/HCPCS: 36415; 36600; 71045; 80048; 80053; 80076; 82728; 82805; 82962; 83605; 83735; 83880; 84100; 84484; 85007; 85025; 85027; 85379; 85384; 85610; 85730; 86140; 86850; 86900; 86901; 86927; 87040; 87493; 93005; 94760; 96361; 96374; 96375; G0238; J0171; J0456; J0696; J1650; J2020; J2270; J2405; J2543; J2920; J2930; J7030; J7050; 99285-25; G0378; P9017